=== PATIENT | female | born 1930 | race Caucasian/White ===

== ENCOUNTER 2018-01-22 12:12 | Inpatient (IN) ==
[2018-01-22] MEDS ORDERED: Propofol 1000 mg/100 ml Inj 1,000 MG/100 ML BOTTLE ONE (12:17)
--- NOTE | 2018-01-22 12:31 | XR ---
EXAM DATE: 01/22/2018 12:27 PM EDT AGE/SEX: 89 years / Female INDICATIONS: Trauma alert. Fall. CLINICAL DATA: This is the patient's initial encounter. Patient reports that signs and symptoms have been present for 1 day and indicates a pain score of Nonresponsive. MEDICAL/SURGICAL HISTORY: Non-responsive. Non-responsive. COMPARISON: No prior exams available for comparison. FINDINGS: There is extensive air in the subcutaneous tissues. There appears to be a number of left-sided rib fr actures. The heart and mediastinum are unremarkable. The endotracheal tube is extending towards the r ight bronchus. CONCLUSION: Extensive subcutaneous air in the chest wall and breast. ET tube heading towards the right bronchus. Numerous left-sided rib fractures Electronically signed by: Nile Duvall MD 01/22/2018 12:30 PM EDT
--- NOTE | 2018-01-22 12:33 | XR ---
EXAM DATE: 01/22/2018 12:31 PM EDT AGE/SEX: 89 years / Female INDICATIONS: Trauma alert. Fall. CLINICAL DATA: This is the patient's initial encounter. Patient reports that signs and symptoms have been present for 1 day and indicates a pain score of Nonresponsive. MEDICAL/SURGICAL HISTORY: Non-responsive. Non-responsive. COMPARISON: No prior exams available for comparison. FINDINGS: Examination of the pelvis demonstrates no evidence of fracture or dislocation. Bony mineralization i s normal. There is no widening of the sacroiliac joints. No foreign body is identified. CONCLUSION: Negative examination. Electronically signed by: Nile Duvall MD 01/22/2018 12:32 PM EDT
[2018-01-22 12:43] LABS: Baso % (Auto) 0.4 % (0.0-2.0); Eos % (Auto) 0.2 % (0.0-4.0); Hematocrit 31.3 % (35.0-46.0); Hemoglobin 10.1 gm/dL (11.6-15.3); Lymph # (Auto) 0.8 th/mm3 (1.0-4.8); Lymph % (Auto) 7.4 % (9.0-44.0); Mean Corpuscular HGB Conc 32.4 % (32.0-36.0); Mean Corpuscular Hemoglobin 28.2 pg (27.0-34.0); Mean Corpuscular Volume 87.1 fL (80.0-100.0); Mono # (Auto) 0.5 th/mm3 (0.0-0.9); Mono % (Auto) 4.8 % (0.0-8.0); Neut # (Auto) 9.4 th/mm3 (1.8-7.7); Neut % (Auto) 87.2 % (16.0-70.0); Platelet Count 237 th/mm3 (150-450); Red Blood Count 3.59 mil/mm3 (4.00-5.30); Red Cell Distribution Width 15.6 % (11.6-17.2); White Blood Count 10.7 th/mm3 (4.0-11.0)
--- NOTE | 2018-01-22 12:43 | CT ---
EXAM DATE: 01/22/2018 12:40 PM EDT AGE/SEX: 89 years / Female INDICATIONS: Trauma alert, fall from standing. CLINICAL DATA: This is the patient's initial encounter. Patient reports that signs and symptoms have been present for 1 day and indicates a pain score of Nonresponsive. MEDICAL/SURGICAL HISTORY: Non-responsive. Non-responsive. RADIATION DOSE: 65.35 CTDI (mGy) COMPARISON: No prior exams available for comparison. TECHNIQUE: CT of the head without contrast. Using automated exposure control and adjustment of the mA and/or kV according to patient size, radiation dose was kept as low as reasonably achievable to ob tain optimal diagnostic quality images. DICOM format image data is available electronically for revi ew and comparison. FINDINGS: Cerebrum: The ventricles are normal for age. No evidence of midline shift, mass lesion, hemorrhage or acute infarction. No extraaxial fluid collections are seen. Posterior Fossa: The cerebellum and brainstem are intact. The 4th ventricle is midline. The cerebe llopontine angle is unremarkable. Extracranial: The visualized portion of the orbits is intact. Skull: The calvaria is intact. No evidence of skull fracture. CONCLUSION: 1. Negative CT Head non contrast. Extensive air in the subcutaneous tissues . Electronically signed by: Nile Duvall MD 01/22/2018 12:42 PM EDT
[2018-01-22] MEDS ORDERED: Midazolam Inj 5 MG/ML 1 ML Vial ONE (12:52)
[2018-01-22] MEDS ORDERED: Lidocaine 1%/Epinephrine 1:100,000 Inj 20 ML Vial ONE (12:53)
[2018-01-22 13:01] LABS: Activated Partial Thrombo Time 19.6 sec (24.3-30.1); INR 1.1 Ratio; Prothrombin Time 11.4 sec (9.8-11.6)
--- NOTE | 2018-01-22 13:01 | CT ---
EXAM DATE: 01/22/2018 12:50 PM EDT AGE/SEX: 89 years / Female INDICATIONS: Trauma alert, fall from standing. CLINICAL DATA: This is the patient's initial encounter. Patient reports that signs and symptoms have been present for 1 day and indicates a pain score of Nonresponsive. MEDICAL/SURGICAL HISTORY: Non-responsive. Non-responsive. RADIATION DOSE: 20.64 CTDI (mGy) COMPARISON: No prior exams available for comparison. TECHNIQUE: Contiguous axial images were obtained using helical multirow detector technique. The vol umetric data was post-processed with multiplanar reconstruction in oblique axial, sagittal, and coron al planes. Using automated exposure control and adjustment of the mA and/or kV according to patient s ize, radiation dose was kept as low as reasonably achievable to obtain optimal diagnostic quality sallie ges. DICOM format image data is available electronically for review and comparison. FINDINGS: Vertebrae: Normal vertebral body height. Alignment: Normal. No subluxation. Intervertebral disc space narrowing at C4-5, C5-6 and C6-7 C2-3: The bony spinal canal is normal in size. No evidence of disc bulge or herniation. The neural foramina are bilaterally patent. C3-4: The bony spinal canal is normal in size. No evidence of disc bulge or herniation. The neural foramina are bilaterally patent. C4-5: The bony spinal canal is normal in size. No evidence of disc bulge or herniation. The neural foramina are bilaterally patent. C5-6: The bony spinal canal is normal in size. No evidence of disc bulge or herniation. The neural foramina are bilaterally patent. C6-7: The bony spinal canal is normal in size. No evidence of disc bulge or herniation. The neural foramina are bilaterally patent. 1. C7-T1: The bony spinal canal is normal in size. No evidence of disc bulge or chronic degenerati ve disease throughout the mid cervical spine CT Cervical Spine non contrast for acute traumatic event . Electronically signed by: Nile Duvall MD 01/22/2018 12:59 PM EDT
--- NOTE | 2018-01-22 13:07 | CT ---
EXAM DATE: 01/22/2018 12:51 PM EDT AGE/SEX: 89 years / Female INDICATIONS: Trauma alert, fall from standing. CLINICAL DATA: This is the patient's initial encounter. Patient reports that signs and symptoms have been present for 1 day and indicates a pain score of Nonresponsive. MEDICAL/SURGICAL HISTORY: Non-responsive. Non-responsive. ORAL CONTRAST: No oral contrast ingested. RADIATION DOSE: 5.27 CTDI (mGy) ; Combined studies COMPARISON: No prior exams available for comparison. TECHNIQUE: Multiple contiguous axial images were obtained through the abdomen and pelvis following b olus infusion of 93 ml Omnipaque 350 (iohexol) nonionic water-soluble contrast as a cumulative dose for multiple exams. No oral contrast ingested. Using automated exposure control and adjustment of t he mA and/or kV according to patient size, radiation dose was kept as low as reasonably achievable to obtain optimal diagnostic quality images. DICOM format image data is available electronically for r eview and comparison. FINDINGS: Lower Lungs: There is a significant pneumothorax identified at the left lung base. Pneumomediastinum is noted. Multiple fractures involving the left rib cage are noted. Liver: There is diffuse decreased attenuation of the liver suggesting possible fatty infiltration. No focal mass is noted. There is no dilation of the biliary tree. Spleen: Homogeneous density without enlargement. Pancreas: Unremarkable without mass or calcification. Kidneys: Normal in size and shape. No evidence of mass or hydronephrosis. Bilateral renal cysts are noted with the largest on the left measuring 3.4 cm. Adrenal Glands: Unremarkable. Aorta: The aorta and proximal iliac vessels are grossly unremarkable without aneurysmal dilation. Bowel/Mesentery: The bowel loops are grossly unremarkable. The cecum and sigmoid colon have a normal configuration. Abdominal Wall: Intact. Retroperitoneum: No evidence of adenopathy in the retrocrural, para-aortic, or deep pelvic regions. Bladder: Contours are smooth. Reproductive Organs: 17 mm calcified fibroid is noted within the uterus. Inguinal: The inguinal region is unremarkable without evidence of adenopathy. Bony Structures: Degenerative changes and scoliosis of the lumbar spine are noted. Acute fractures in volving the left rib cage are noted and will be described in more detail in the CT of the chest repor t. Soft tissues: Very extensive subcutaneous emphysema is noted throughout the chest wall and abdomen. CONCLUSION: 1. Significant pneumothorax identified at the left lung base. 2. Very extensive diffuse subcutaneous emphysema throughout the chest wall and abdomen bilaterally. 3. Pneumomediastinum. 4. Multiple left sided rib fractures. 5. Bilateral renal cysts. 6. 17 mm calcified uterine fibroid. Electronically signed by: Miles Jimenez MD 01/22/2018 1:06 PM EDT
--- NOTE | 2018-01-22 13:14 | CT ---
EXAM DATE: 01/22/2018 12:51 PM EDT AGE/SEX: 89 years / Female INDICATIONS: Trauma alert, fall from standing. CLINICAL DATA: This is the patient's initial encounter. Patient reports that signs and symptoms have been present for 1 day and indicates a pain score of Nonresponsive. MEDICAL/SURGICAL HISTORY: Non-responsive. Non-responsive. RADIATION DOSE: 5.27 CTDI (mGy) ; Combined studies COMPARISON: No prior exams available for comparison. TECHNIQUE: Multiple contiguous axial images were obtained through the chest during bolus infusion of 93 ml Omnipaque 350 (iohexol) nonionic water-soluble contrast as a cumulative dose for multiple exa ms. Images were obtained in suspended respiration using multiple row detector helical technique. U sing automated exposure control and adjustment of the mA and/or kV according to patient size, radiati on dose was kept as low as reasonably achievable to obtain optimal diagnostic quality images. DICOM format image data is available electronically for review and comparison. FINDINGS: There is evidence of a large pneumothorax on the left. There is extensive subcutaneous emphysema is n oted extending throughout the chest bilaterally. Pneumomediastinum is also noted. Multiple acute frac tures involving left rib cage are noted with significant displacement of the seventh, eighth and nint h ribs and nondisplaced fractures involving the fifth, sixth, 10 and 11th ribs. Scattered emphysemato us changes are noted bilaterally. No alveolar consolidation is noted. No pulmonary nodule or mass is noted. No mediastinal, hilar or axillary lymphadenopathy is noted. Coronary artery calcifications are noted. Endotracheal tube has its tip approximately 1 cm above the allen. There is mild diffuse decr eased attenuation of the liver suggesting possible fatty infiltration. CONCLUSION: 1. Large left-sided pneumothorax. 2. Extensive subcutaneous emphysema extending throughout the chest and upper abdomen bilaterally. 3. Pneumomediastinum. 4. Multiple acute fractures involving the left rib cage with significant displacement of the left se venth eighth and ninth ribs and nondisplaced fractures involving the left fifth, 6, 10, and 11th ribs . 5. Scattered emphysematous changes bilaterally. 6. Coronary artery calcification. 7. Mild diffuse decreased attenuation liver suggesting possible fatty infiltration. Electronically signed by: Miles Jimenez MD 01/22/2018 1:13 PM EDT
--- NOTE | 2018-01-22 13:25 | XR ---
EXAM DATE: 01/22/2018 1:18 PM EDT AGE/SEX: 89 years / Female INDICATIONS: Post chest tube placement. Trauma alert. CLINICAL DATA: This is the patient's subsequent encounter. Patient reports that signs and symptoms h ave been present for 1 day and indicates a pain score of Nonresponsive. MEDICAL/SURGICAL HISTORY: Non-responsive. Non-responsive. COMPARISON: [facility] [place], CHEST 1V SINGLE AP, 01/22/2018. [facility] [place], CT CHEST W CONTRAST, 01/22/2018. . FINDINGS: A left-sided chest tube has been placed and appears to be in good position. No definite residual pneu mothorax is identified on this examination. Extensive subcutaneous emphysema is still noted throughou t the chest wall. Endotracheal tube has its tip 1 cm above the allen. Nasogastric tube has tip below diaphragm. Multiple left-sided rib fractures are poorly visualized on this examination. CONCLUSION: 1. Left chest tube appears to be in good position and no definite residual pneumothorax is identifie d on this examination. 2. Extensive subcutaneous emphysema is noted throughout the chest wall. Electronically signed by: Miles Jimenez MD 01/22/2018 1:24 PM EDT
[2018-01-22] MEDS: Sod Chloride 0.9% Inj 1,000 ML IV.CONT SCH (14:30)
[2018-01-22] MEDS ORDERED: fentaNYL 10 mcg/mL Premix Drip 2,500 MCG/250 ML BAG IV.SIG PRN (14:36)
[2018-01-22] MEDS ORDERED: Magnesium Sulfate Inj 2 GM in Sodium Chlor 0.9% Inj 96 ML IV.SIG PRN (14:38)
[2018-01-22] MEDS ORDERED: Magnesium Sulfate Inj 4 GM in Sodium Chlor 0.9% Inj 92 ML IV.SIG PRN (14:38)
[2018-01-22] MEDS ORDERED: Potassium Chloride 25 MEQ Effervescent Tablet PO PRN (14:38)
[2018-01-22] MEDS ORDERED: Sodium Phosphate Inj 30 MMOL in Sodium Chlor 0.9% Inj 250 ML IV.SIG PRN (14:38)
[2018-01-22] MEDS ORDERED: Potassium Phosphate 500 MG Soluble Tablet PO PRN (14:38)
[2018-01-22] MEDS ORDERED: Potassium Chlor 40 mEq Premix 40 MEQ/100 ML PIGGYBACK IV.SIG PRN ×2 (14:38)
[2018-01-22] MEDS ORDERED: Magnesium Oxide 400 MG Tablet PO PRN (14:38)
[2018-01-22] MEDS ORDERED: Potassium Phosphate Inj 30 MMOL in Sodium Chlor 0.9% Inj 250 ML IV.SIG PRN (14:38)
[2018-01-22] MEDS ORDERED: Potassium Chlor 20 mEq Premix 20 MEQ/100 ML PIGGYBACK IV.SIG PRN (14:38)
[2018-01-22] MEDS: Pantoprazole Inj 40 MG Vial IV.PUSH SCH (15:36)
[2018-01-22] MEDS ORDERED: Propofol Inj 500 MG/50 ML Vial ONE (15:58)
--- NOTE | 2018-01-22 17:34 | P.PNCC ---
Subjective Brief History: 88-year-old female fell at home from standing position when she tripped. Transferred to the emergency room awake and complaining of the pain on the left side of her chest. Patient transferred this priority 2 trauma alert and on arrival noted to have very extensive subcutaneous emphysema extending from the lower chest all the way to the neck and the face. Patient was resuscitated according trauma principles primary secondary survey resuscitation definitive care carried out and patient underwent full diagnostic and clinical workup Final diagnoses include Large left-sided pneumothorax. Extensive subcutaneous emphysema extending throughout the chest and upper abdomen bilaterally. Pneumomediastinum. Multiple acute fractures involving the left rib cage with significant displacement of the left 7, 8, 9 ribs and Nondisplaced fractures involving the left 5, 6, 10, and 11th ribs. Patient is now intubated and ventilated will remain on the ventilator for the duration. In the face of serial rib fractures and underlying pulmonary contusion patient will require prolonged intubation and ventilation and will eventually either come off the ventilator or may require tracheostomy Patient has underlying severe pulmonary emphysema has been a lifetime smoker I discussed this at length with the family and patient is DO NOT RESUSCITATE Objective Vital Signs / I&O: Vital Signs 01/22/18 12:10 01/22/18 12:13 01/22/18 13:32 Temperature Pulse Rate Respiratory Rate 16 Blood Pressure Pulse Oximetry 100 100 100 01/22/18 14:00 01/22/18 15:00 01/22/18 15:06 Temperature 97.5 F L Pulse Rate 72 Respiratory Rate 16 16 16 Blood Pressure 127/90 Pulse Oximetry Intake & Output 01/21/18 01/22/18 01/22/18 18:59 06:59 18:59 Weight 62 kg Other: Weight On Admission 62.4 kg Result Diagrams: 01/22/18 12:30 Imaging: Impressions Chest X-Ray 01/22/18 00:00 CONCLUSION: 1. Left chest tube appears to be in good position and no definite residual pneumothorax is identified on this examination. 2. Extensive subcutaneous emphysema is noted throughout the chest wall. Chest X-Ray 01/22/18 12:13 CONCLUSION: Extensive subcutaneous air in the chest wall and breast. ET tube heading towards the right bronchus. Numerous left-sided rib fractures Pelvis X-Ray 01/22/18 12:13 CONCLUSION: Negative examination. Abdomen/Pelvis CT 01/22/18 12:33 CONCLUSION: 1. Significant pneumothorax identified at the left lung base. 2. Very extensive diffuse subcutaneous emphysema throughout the chest wall and abdomen bilaterally. 3. Pneumomediastinum. 4. Multiple left sided rib fractures. 5. Bilateral renal cysts. 6. 17 mm calcified uterine fibroid. Chest CT 01/22/18 12:33 CONCLUSION: 1. Large left-sided pneumothorax. 2. Extensive subcutaneous emphysema extending throughout the chest and upper abdomen bilaterally. 3. Pneumomediastinum. 4. Multiple acute fractures involving the left rib cage with significant displacement of the left seventh eighth and ninth ribs and nondisplaced fractures involving the left fifth, 6, 10, and 11th ribs. 5. Scattered emphysematous changes bilaterally. 6. Coronary artery calcification. 7. Mild diffuse decreased attenuation liver suggesting possible fatty infiltration. Head CT 01/22/18 12:33 CONCLUSION: 1. Negative CT Head non contrast. Extensive air in the subcutaneous tissues . 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 ventilated on propofol fentanyl Hemodynamic/Cardiac: Hemodynamically stable Pulmonary/Respiratory: Bilateral breath sounds very decreased consistent with severe COPD Patient is generalized subcutaneous emphysema extending from upper abdomen all the way to the neck and encompassing the face Fully ventilatory dependent on AC mode ventilation and good PO2 FiO2 gradient on 40% FiO2 The subcutaneous emphysema is of no consequence at this time patient has minimal air leak in the chest tube and this will resolve in the next few days as the area resorbs The underlying problem is patient's pulmonary contusion and severe COPD and therefore separation from the ventilator will be precarious process and patient might require tracheostomy Abdomen/GI Nutrition: Abdomen soft no signs of trauma Renal/I&O: Renal function preserved Assessment and Plan Attestation: Critical care time 36 minutes
--- NOTE | 2018-01-22 19:42 | ED ---
HPI General Stated Complaint: Trauma alert History of Present Illness HPI narrative: This is an 88-year-old female who presents via EMS as a trauma alert. The patient reportedly had a fall at home. She reportedly had pain in her right lateral back. As paramedics arrived, they witnessed patient to be awake alert and appropriate with a GCS of 15. They reported as they were talking with her, she started to have swelling in her left upper extremity which extended to her neck chest and other right upper extremity. They state that they were concerned that she may have compromised her airway and she was intubated emergently for airway protection. When paramedics arrived the patient had diffuse crepitance across her chest breasts bilateral upper extremities neck and face. She had equal bilateral breath sounds noted. She had been medicated with etomidate, Versed prior to arrival. No further history could be elicited. Related Data Home Medications Medication Instructions Recorded Confirmed albuterol sulfate 1 puff INHALATION Q4-6H PRN MDD 01/22/18 01/22/18 10mg escitalopram oxalate 5 mg PO DAILY 01/22/18 01/22/18 hydroxyzine HCl 25 mg PO QID PRN MDD 10mg 01/22/18 01/22/18 zolpidem [Ambien] PRN 01/22/18 Allergies Allergy/AdvReac Type Severity Reaction Status Date / Time No Allergy Information Allergy Unverified 01/22/18 12:13 Available Review of Systems ROS Unobtainable ROS Unobtainable: unobtainable due to endotracheal tube (As per HPI.) [facility] Social History Social History Substance History: No History of Abuse Second Hand Smoke Exposure: Yes Smoking Status: Former smoker Tobacco Type: Cigarettes How Often Do You Have a Drink Containing Alcohol: 2 to 4 times a month Exam Narrative Exam Narrative: GENERAL: Well-developed female with obvious swelling to head face chest arms and abdomen. It appeared to be subcutaneous air. Patient was intubated and being ventilated through ET tube. SKIN: Focused skin assessment warm/dry. HEAD: Atraumatic. Normocephalic. EYES: Pupils equal and round at 4 mm. Subcu air extended into her upper and lower eyelids bilaterally. No scleral icterus. No injection or drainage. ENT: No nasal bleeding or discharge. Mucous membranes pink and moist. ET tube in place. NECK: Trachea midline. Diffuse swelling with subcutaneous air in the neck which extended from the chest. CARDIOVASCULAR: Regular rate and rhythm. No murmur appreciated. RESPIRATORY: Being ventilated through an ET tube. Equal breath sounds bilaterally appreciated. GASTROINTESTINAL: Abdomen soft, distended with subcutaneous air. There was no pulsatile masses appreciated. MUSCULOSKELETAL: No obvious deformities. No clubbing. No cyanosis. No edema. Diffuse subcutaneous air in the left and right upper extremity. There was a skin tear noted on her left wrist. NEUROLOGICAL: Intubated and sedated. Patient was observed withdrawing to painful stimuli. Course Initial Documented Vital Signs Pulse Oximetry 100 01/22/18 12:10 Last Documented Vital Signs Temperature 97.5 F L 01/22/18 14:00 Pulse Rate 72 01/22/18 14:00 Respiratory Rate 16 01/22/18 16:00 Blood Pressure 124/64 01/22/18 16:00 Pulse Oximetry 100 01/22/18 13:32 Procedures Chest Tube Chest Tube 1: Chest Tube Location: Mid-Axillary Chest Size of Tube (cm): 28 Chest Tube Procedure: Yes betadine prep and sterile drapes applied Tube Sutured to Skin: Yes Sterile Dressing Applied: Yes Anesthesia: 1% Lidocaine w/ Epi Volume anesthetic (mL): 7 Incision made with: #11 blade Haddad of Air Mobile: Yes Tube Drainage: none Post Procedure CXR?: Yes Patient Tolerated Procedure: Yes Post Procedure: sutured to skin and sterile dressing applied Critical Care Time Critical Care Time: Yes Total Critical Care Time: 60 Attestation: Aggregate critical care time was 60 minutes. Time to perform other separately billable procedures was not included in the critical care time. My time did not include minutes spent treating any other patients simultaneously or on activities that did not directly contribute to the patient's treatment. The services I provided to this patient were to treat and/or prevent clinically significant deterioration that could result in: I provided critical care services requiring my management, as noted below: Chart data review, documentation time, medication orders and management, vital sign assessments/reviewing monitor data, ordering and reviewing lab tests, ordering and interpreting/reviewing x-rays and diagnostic studies, care of the patient and discussion of the patient with the admitting physicians. Medical Decision Making MDM Narrative Medical decision making narrative: 88-year-old female presents after falling and striking her left posterior ribs. The patient had sudden onset of diffuse subcutaneous air in her upper extremities and chest and face. Chest x-ray showed diffuse subcutaneous air in the breasts upper extremities chest wall however did not show an obvious pneumothoraces. CT scan of the head neck chest abdomen pelvis revealed a large left-sided pneumothorax with diffuse subcutaneous air throughout the torso. There are also multiple left-sided posterior ribs that were fractured. A chest tube was placed which reinflated the lung. Patient will be admitted to the trauma service. Case was discussed with Dr. Salcido, on-call trauma surgeon. Medical Screen Exam Complete: Yes Emergency Medical Condition: Yes Differential Diagnosis Differential Diagnosis: Pneumothorax versus tension pneumothorax versus subcutaneous emphysema versus rib fractures Lab Data Result diagrams: 01/22/18 12:30 Lab Results 01/22/18 01/22/18 01/22/18 Range/Units 12:30 12:30 12:30 WBC 10.7 (4.0-11.0) th/mm3 RBC 3.59 L (4.00-5.30) mil/mm3 Hgb 10.1 L (11.6-15.3) gm/dL POC Hgb (Calc) 9.9 L (11.6-15.3) g/dL Hct 31.3 L (35.0-46.0) % POC Hct 29.0 L (35-46.0) % MCV 87.1 (80.0-100.0) fL MCH 28.2 (27.0-34.0) pg MCHC 32.4 (32.0-36.0) % RDW 15.6 (11.6-17.2) % Plt Count 237 (150-450) th/mm3 MPV 9.0 (7.0-11.0) fL Neut % (Auto) 87.2 H (16.0-70.0) % Lymph % (Auto) 7.4 L (9.0-44.0) % [place] % (Auto) 4.8 (0.0-8.0) % Eos % (Auto) 0.2 (0.0-4.0) % Baso % (Auto) 0.4 (0.0-2.0) % Neut # (Auto) 9.4 H (1.8-7.7) th/mm3 Lymph # (Auto) 0.8 L (1.0-4.8) th/mm3 [place] # (Auto) 0.5 (0.0-0.9) th/mm3 Eos # (Auto) 0.0 (0.0-0.4) th/mm3 Baso # (Auto) 0.0 (0.0-0.2) th/mm3 WBC Differential . Differential Comment Auto diff final PT 11.4 (9.8-11.6) sec INR 1.1 Ratio APTT 19.6 L (24.3-30.1) sec POC Sodium 145 H (137-144) mmol/L POC Potassium 2.9 L* (3.6-5.0) mmol/L POC Chloride 112 H (102-111) mmol/L POC BUN 11 (5-21) mg/dL POC Creatinine 0.5 L (0.6-1.3) mg/dL POC Glucose 126 H (68-110) mg/dL Nasal Screen MRSA (PCR) (Negative) Blood Type Antibody Screen 01/22/18 01/22/18 Range/Units 12:30 16:30 WBC (4.0-11.0) th/mm3 RBC (4.00-5.30) mil/mm3 Hgb (11.6-15.3) gm/dL POC Hgb (Calc) (11.6-15.3) g/dL Hct (35.0-46.0) % POC Hct (35-46.0) % MCV (80.0-100.0) fL MCH (27.0-34.0) pg MCHC (32.0-36.0) % RDW (11.6-17.2) % Plt Count (150-450) th/mm3 MPV (7.0-11.0) fL Neut % (Auto) (16.0-70.0) % Lymph % (Auto) (9.0-44.0) % [place] % (Auto) (0.0-8.0) % Eos % (Auto) (0.0-4.0) % Baso % (Auto) (0.0-2.0) % Neut # (Auto) (1.8-7.7) th/mm3 Lymph # (Auto) (1.0-4.8) th/mm3 [place] # (Auto) (0.0-0.9) th/mm3 Eos # (Auto) (0.0-0.4) th/mm3 Baso # (Auto) (0.0-0.2) th/mm3 WBC Differential Differential Comment PT (9.8-11.6) sec INR Ratio APTT (24.3-30.1) sec POC Sodium (137-144) mmol/L POC Potassium (3.6-5.0) mmol/L POC Chloride (102-111) mmol/L POC BUN (5-21) mg/dL POC Creatinine (0.6-1.3) mg/dL POC Glucose (68-110) mg/dL Nasal Screen MRSA (PCR) Not detected (Negative) Blood Type A Negative Antibody Screen Negative Imaging Data Radiologist's impression: Chest X-Ray 01/22/18 00:00 CONCLUSION: 1. Left chest tube appears to be in good position and no definite residual pneumothorax is identified on this examination. 2. Extensive subcutaneous emphysema is noted throughout the chest wall. Chest X-Ray 01/22/18 12:13 CONCLUSION: Extensive subcutaneous air in the chest wall and breast. ET tube heading towards the right bronchus. Numerous left-sided rib fractures Pelvis X-Ray 01/22/18 12:13 CONCLUSION: Negative examination. Abdomen/Pelvis CT 01/22/18 12:33 CONCLUSION: 1. Significant pneumothorax identified at the left lung base. 2. Very extensive diffuse subcutaneous emphysema throughout the chest wall and abdomen bilaterally. 3. Pneumomediastinum. 4. Multiple left sided rib fractures. 5. Bilateral renal cysts. 6. 17 mm calcified uterine fibroid. Chest CT 01/22/18 12:33 CONCLUSION: 1. Large left-sided pneumothorax. 2. Extensive subcutaneous emphysema extending throughout the chest and upper abdomen bilaterally. 3. Pneumomediastinum. 4. Multiple acute fractures involving the left rib cage with significant displacement of the left seventh eighth and ninth ribs and nondisplaced fractures involving the left fifth, 6, 10, and 11th ribs. 5. Scattered emphysematous changes bilaterally. 6. Coronary artery calcification. 7. Mild diffuse decreased attenuation liver suggesting possible fatty infiltration. Head CT 01/22/18 12:33 CONCLUSION: 1. Negative CT Head non contrast. Extensive air in the subcutaneous tissues . Discharge Plan Discharge Disposition Patient Disposition: 30 Still Patient Discharge Details Diagnosis: Pneumothorax on left, Multiple rib fractures, Subcutaneous emphysema due to trauma Physicians Team ED Provider: Tony Aranda Primary Care Provider: UNKNOWN, Attending Provider: Chris Hanna Other Providers: Slava Barahona P Status ED Status: Admitted Patient
[2018-01-22] MEDS: Propofol 1000 mg/100 ml Inj 1,000 MG/100 ML BOTTLE IV.CONT PRN (19:45)
--- NOTE | 2018-01-22 21:19 | MB ---
cc: Chuy Carias DO DATE: 01/22/2018 HISTORY OF PRESENT ILLNESS: This is an 88-year-old female who was brought in by EMS after a fall. The staff was unable to place a Tracey at the bedside. She is currently intubated and sedated, therefore I am unable to obtain a full history and physical from her. At the bedside, I was able to place a 14-Belarusian coude catheter without difficulty. 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 The Tracey went in and approximately 250 mL of clear urine was drained without difficulty. She tolerated the procedure well. PHYSICAL EXAMINATION: VITAL SIGNS: Afebrile, 124/64 is her blood pressure, 84 is her heart rate, respiratory rate 16, 40% FiO2, intubated and sedated. Breath sounds bilaterally. HEART: Regular rate and rhythm. ABDOMEN: Soft, nontender, nondistended. GENITOURINARY: Tracey catheter inserted at the bedside, again. EXTREMITIES: Show right hand edema with no lower extremity edema noted. LABORATORY DATA: White count 10.7, hemoglobin 10.1, hematocrit 31.3, platelet count of 237. PT 11.4, INR 1.1, PTT 19.6. Sodium 145, potassium 2.9, chloride 112, CO2 is not done. Creatinine 0.5. ASSESSMENT AND PLAN: This is an 88-year-old female, status post fall, currently intubated and sedated. Difficult Tracey was placed at the bedside. We will maintain Tracey for now. Thank you for the consult. Chuy Carias DO SWT/ct , 07:50 PM , 07:55 PM
[2018-01-22 21:29] LABS: Bilirubin,Urine Negative (Negative); Clarity,Urine Clear (Clear); Color,Urine Yellow (Yellw/Straw); Glucose,Urine (UA) Negative (Negative); Leukocyte Esterase,Urine Negative (Negative); Nitrite,Urine Negative (Negative); Specific Gravity,Urine 1.038 (1.002-1.035); Squamous Epithelial Cell,Urine <1 /hpf (0-5)
[2018-01-23] MEDS: Sod Chloride 0.9% Inj 1,000 ML IV.CONT SCH ×3 (00:29→21:10)
[2018-01-23] MEDS: Propofol 1000 mg/100 ml Inj 1,000 MG/100 ML BOTTLE IV.CONT PRN ×2 (01:05→03:15)
[2018-01-23] MEDS: Chlorhexidine Gluconate 2% 1 Pack (2 Cloths) TOPICAL SCH (03:16)
[2018-01-23] MEDS ORDERED: Chlorhexidine Gluconate 2% 1 Pack (2 Cloths) TOPICAL PRN (04:00)
[2018-01-23] MEDS: fentaNYL 10 mcg/mL Premix Drip 2,500 MCG/250 ML BAG IV.SIG PRN (04:16)
[2018-01-23 05:31] LABS: Baso % (Auto) 0.3 % (0.0-2.0); Eos # (Auto) 0.1 th/mm3 (0.0-0.4); Eos % (Auto) 1.3 % (0.0-4.0); Hematocrit 34.7 % (35.0-46.0); Hemoglobin 11.5 gm/dL (11.6-15.3); Lymph # (Auto) 1.2 th/mm3 (1.0-4.8); Lymph % (Auto) 11.6 % (9.0-44.0); Mean Corpuscular HGB Conc 33.1 % (32.0-36.0); Mean Corpuscular Hemoglobin 28.4 pg (27.0-34.0); Mean Corpuscular Volume 85.8 fL (80.0-100.0); Mean Platelet Volume 9.6 fL (7.0-11.0); Mono # (Auto) 0.7 th/mm3 (0.0-0.9); Mono % (Auto) 7.1 % (0.0-8.0); Neut # (Auto) 8.2 th/mm3 (1.8-7.7); Neut % (Auto) 79.7 % (16.0-70.0); Platelet Count 246 th/mm3 (150-450); Red Blood Count 4.05 mil/mm3 (4.00-5.30); Red Cell Distribution Width 15.4 % (11.6-17.2); White Blood Count 10.3 th/mm3 (4.0-11.0)
[2018-01-23 05:56] LABS: Albumin 3.1 g/dL (3.4-5.0); Anion Gap 11 meq/L (5-15); Aspartate Aminotransferase 154 U/L (15-37); Blood Urea Nitrogen 19 mg/dL (7-18); Calcium 8.2 mg/dL (8.5-10.1); Carbon Dioxide 21.2 meq/L (21.0-32.0); Chloride 111 meq/L (98-107); Glomerular Filtration Rate 40 mL/min (>89); Glucose,Random 113 mg/dL (74-106); Potassium 4.4 meq/L (3.5-5.1); Sodium 143 meq/L (136-145)
[2018-01-23 05:57] LABS: Alanine Aminotransferase 88 U/L (10-53)
[2018-01-23 06:00] LABS: Alkaline Phosphatase 164 U/L (45-117); Total Protein 6.1 g/dL (6.4-8.2)
--- NOTE | 2018-01-23 06:03 | XR ---
EXAM DATE: 01/23/2018 4:55 AM EDT AGE/SEX: 87 years / Female INDICATIONS: Trauma to chest post fall yesterday CLINICAL DATA: This is the patient's subsequent encounter. Patient reports that signs and symptoms h ave been present for 1 day and indicates a pain score of Nonresponsive. MEDICAL/SURGICAL HISTORY: Non-responsive. Non-responsive. COMPARISON: [facility], CHEST 1V SINGLE AP, 01/22/2018. . FINDINGS: Endotracheal tube is present with tip just above the allen. Nasogastric tube descends into the stoma ch. Left thoracostomy tube is again noted. There is mild basilar parenchymal opacity, slightly more p ronounced on the left than the right and extensive diffuse subcutaneous emphysema which is unchanged. Mediastinal air also suspected. Cardiac contours are unchanged. CONCLUSION: No significant change Electronically signed by: Keith Toribio MD 01/23/2018 6:02 AM EDT
[2018-01-23] MEDS ORDERED: Sod Chloride 0.9% Inj 1,000 ML IV.SIG ONE (07:00)
[2018-01-23] MEDS ORDERED: Albumin Human 5% Inj 500 ML IV.SIG ONE (07:00)
[2018-01-23] MEDS: Enoxaparin Inj 40 MG/0.4 ML Syringe SQ SCH (09:10)
[2018-01-23] MEDS: Escitalopram 10 MG Tablet PO SCH (09:10)
[2018-01-23] MEDS ORDERED: Sod Chloride 0.9% Inj 1,000 ML IV.SIG SCH (10:00)
[2018-01-23] MEDS: Senna/Docusate Sodium 8.6/50 MG Tablet PO SCH ×2 (11:10→20:03)
[2018-01-23] MEDS: Oral Hygiene Kit OROPHARYNG SCH ×2 (11:11→16:04)
[2018-01-23] MEDS: Pantoprazole Inj 40 MG Vial IV.PUSH SCH (13:35)
[2018-01-23] MEDS ORDERED: Sod Chloride 0.9% Inj 1,000 ML IV.CONT SCH (14:00)
--- NOTE | 2018-01-23 17:14 | ECG ---
Date Performed: 01/22/2018 Time Performed: 20:20:52 PTAGE: 89 years EKG: Sinus rhythm NORMAL ECG INTERPRETATION BASED ON A DEFAULT AGE OF 40 YEARS NO PREVIOUS TRACING DOCTOR: Flo Mason Interpretating Date/Time 01/23/2018 17:14:20
[2018-01-23 19:58] LABS: Calcium 7.6 mg/dL (8.5-10.1); Carbon Dioxide 20.8 meq/L (21.0-32.0); Potassium 4.4 meq/L (3.5-5.1)
[2018-01-23] MEDS: Chlorhexidine 0.12% Oral Kit 15 ML UDC OROPHARYNG SCH (20:03)
--- NOTE | 2018-01-23 21:16 | P.PNCC ---
Subjective Brief History: 88-year-old female fell at home from standing position when she tripped. Transferred to the emergency room awake and complaining of the pain on the left side of her chest. Patient transferred this priority 2 trauma alert and on arrival noted to have very extensive subcutaneous emphysema extending from the lower chest all the way to the neck and the face. Patient was resuscitated according trauma principles primary secondary survey resuscitation definitive care carried out and patient underwent full diagnostic and clinical workup Final diagnoses include Large left-sided pneumothorax. Extensive subcutaneous emphysema extending throughout the chest and upper abdomen bilaterally. Pneumomediastinum. Multiple acute fractures involving the left rib cage with significant displacement of the left 7, 8, 9 ribs and Nondisplaced fractures involving the left 5, 6, 10, and 11th ribs. Patient is now intubated and ventilated will remain on the ventilator for the duration. In the face of serial rib fractures and underlying pulmonary contusion patient will require prolonged intubation and ventilation and will eventually either come off the ventilator or may require tracheostomy Patient has underlying severe pulmonary emphysema has been a lifetime smoker I discussed this at length with the family and patient is DO NOT RESUSCITATE 01/23/2018 Patient has been stable throughout the night Neurologically she is improved she is opening eyes and following simple commands apparently responding to her family but remains sedated in the face of ventilatory support Hemodynamically stable Bilateral breath sounds on assist control ventilation and good PO2 FiO2 gradient on 40% FiO2. Patient has serial rib fractures on the left side with pulmonary laceration and contusion and therefore is not ready of course to be extubated Chest tube no more leak The subcutaneous emphysema is gradually resolving and reabsorbing as expected Abdomen soft active bowel sounds Renal function is adequate however patient's urine output has been marginal in last 24 hours and she is gotten several boluses of fluids Random urine sodium is very high and indicative of renal wasting rather than prerenal insufficiency and volume contraction Fractional sodium excretion is more than 1 We will give some Lasix to help patient along now that she is volume loaded Objective Vital Signs / I&O: Vital Signs 01/22/18 21:55 01/22/18 23:00 01/22/18 23:50 Temperature Pulse Rate Respiratory Rate 16 16 Blood Pressure Pulse Oximetry 100 100 100 01/23/18 00:00 01/23/18 04:00 01/23/18 04:03 Temperature 97.6 F 98 F Pulse Rate 68 78 Respiratory Rate 16 16 16 Blood Pressure 97/52 L 102/51 L Pulse Oximetry 100 98 98 01/23/18 08:00 01/23/18 08:34 01/23/18 11:30 Temperature 98.3 F Pulse Rate 74 Respiratory Rate 16 16 10 L Blood Pressure 96/54 L Pulse Oximetry 98 100 97 01/23/18 12:00 01/23/18 16:00 01/23/18 16:30 Temperature 98.3 F 98.3 F Pulse Rate 86 86 86 Respiratory Rate 11 L 10 L 10 L Blood Pressure 101/50 L 95/53 L Pulse Oximetry 99 99 01/23/18 16:31 Temperature Pulse Rate Respiratory Rate 15 Blood Pressure Pulse Oximetry 100 Intake & Output 01/23/18 01/23/18 01/24/18 06:59 18:59 06:59 Intake Total 1300 / 1300 4500 / 4500 Output Total 668 / 668 237 / 237 Balance 632 / 632 4263 / 4263 Weight 64.1 kg Intake: IV 1300 / 1300 4500 / 4500 Diprivan 1000 mg/100 ml Inj 1, 200 / 200 000 mg In 100 ml @ 5 MCG/KG/MIN 1.86 mls/hr IV.CONT TITRATE PRN Rx#:[id number] NS Inj 1,000 ML @ 999 mls/hr IV 1000 / 1000 1999 .CONT .Q1H1M [facility] Rx#:[id number] Alburx 5% Inj 500 ML @ As 500 / 500 Directed IV.SIG NOW ONE Rx#: [id number] KCl 40 mEq Premix Inj 40 meq In 100 / 100 100 ml @ 25 mls/hr IV.SIG Q2H PRN Rx#:[id number] NS Inj 1,000 ML @ 999 mls/hr IV 1999 .SIG .Q1H1M [facility] Rx#:[id number] Oral 0 / 0 Bladder Irrigation Fluid - 0 / 0 Amount Retained Coude 0 / 0 Output: Urine Amount (Catheter) 650 / 650 125 / 125 Coude 650 / 650 125 / 125 Gastric Drainage 100 / 100 Oral Orogastric Tube 100 / 100 Chest Tube Drainage #1 Left Pleural/Mediastinal Other: Bladder Irrigation Fluid - Amount Instilled Coude 120 Bladder Irrigation Fluid - Amount Drained Coude 120 # Bowel Movements 0 Result Diagrams: 01/23/18 04:58 09/20/18 18:55 Imaging: Impressions Chest X-Ray 01/23/18 06:00 CONCLUSION: No significant change Disinhibition Score: 14.00 Aggression Score: 14.00 Lability Score: 14.00 Agitated Behavior Total Score: 14 - 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 Patient has serial rib fractures on the left side with pulmonary laceration and contusion and therefore is not ready of course to be extubated Chest tube no more leak The subcutaneous emphysema is gradually resolving and reabsorbing as expected Abdomen/GI Nutrition: Abdomen soft active bowel sounds Renal/I&O: Renal function is adequate however patient's urine output has been marginal in last 24 hours and she is gotten several boluses of fluids Random urine sodium is very high and indicative of renal wasting rather than prerenal insufficiency and volume contraction Fractional sodium excretion is more than 1 We will give some Lasix to help patient along now that she is volume loaded Assessment and Plan Attestation: Critical care time 36 minutes
[2018-01-24] MEDS ORDERED: Sod Chloride 0.9% Inj 1,000 ML IV.SIG ONE (02:00)
[2018-01-24] MEDS: Oral Hygiene Kit OROPHARYNG SCH ×4 (04:22→16:34)
[2018-01-24] MEDS: Chlorhexidine Gluconate 2% 1 Pack (2 Cloths) TOPICAL SCH (04:22)
--- NOTE | 2018-01-24 04:50 | XR ---
EXAM DATE: 01/24/2018 4:14 AM EDT AGE/SEX: 87 years / Female INDICATIONS: Pneumothorax. CLINICAL DATA: This is the patient's subsequent encounter. Patient reports that signs and symptoms h ave been present for 3 days and indicates a pain score of Nonresponsive. MEDICAL/SURGICAL HISTORY: Non-responsive. Non-responsive. [place] [facility] [place]. . FINDINGS: Diffuse, mostly interstitial parenchymal opacities persist. No perceptible pneumothorax but there is persistent bilateral chest wall emphysema. A small left pleural effusion is present. A left chest tub e remains in place. Endotracheal tube tip is approximately 9 mm above the allen. Nasogastric tube has its tip in the sto mach. CONCLUSION: 1. Persistent diffuse interstitial opacities. 2. Small left pleural effusion, probably slightly larger than yesterday. 3. No perceptible pneumothorax but extensive chest wall emphysema persists. There is a left chest tu be. 4. Endotracheal tube tip is very close to the allen. Electronically signed by: Keith Wan MD 01/24/2018 4:48 AM EDT
[2018-01-24 05:10] LABS: Baso % (Auto) 0.3 % (0.0-2.0); Eos # (Auto) 0.1 th/mm3 (0.0-0.4); Eos % (Auto) 1.1 % (0.0-4.0); Hematocrit 33.6 % (35.0-46.0); Hemoglobin 10.4 gm/dL (11.6-15.3); Lymph % (Auto) 12.8 % (9.0-44.0); Mean Corpuscular Hemoglobin 28.2 pg (27.0-34.0); Mean Platelet Volume 9.3 fL (7.0-11.0); Mono # (Auto) 0.6 th/mm3 (0.0-0.9); Mono % (Auto) 8.2 % (0.0-8.0); Neut # (Auto) 5.9 th/mm3 (1.8-7.7); Neut % (Auto) 77.6 % (16.0-70.0); Platelet Count 198 th/mm3 (150-450); Red Blood Count 3.69 mil/mm3 (4.00-5.30); Red Cell Distribution Width 16.2 % (11.6-17.2); White Blood Count 7.6 th/mm3 (4.0-11.0)
[2018-01-24 05:22] LABS: Alanine Aminotransferase 85 U/L (10-53); Albumin 3.1 g/dL (3.4-5.0); Anion Gap 10 meq/L (5-15); Aspartate Aminotransferase 101 U/L (15-37); Blood Urea Nitrogen 23 mg/dL (7-18); Chloride 118 meq/L (98-107); Glomerular Filtration Rate 21 mL/min (>89); Glucose,Random 74 mg/dL (74-106); Potassium 4.5 meq/L (3.5-5.1); Sodium 147 meq/L (136-145)
[2018-01-24 05:24] LABS: Alkaline Phosphatase 179 U/L (45-117); Total Protein 6.1 g/dL (6.4-8.2)
[2018-01-24] MEDS: Propofol 1000 mg/100 ml Inj 1,000 MG/100 ML BOTTLE IV.CONT PRN ×3 (05:25→20:12)
[2018-01-24 06:16] LABS: ABG Base Excess -10.4 mmol/L (-2-2); ABG PCO2 55 mmHg (38-42); ABG PO2 91 mmHg (61-120)
[2018-01-24] MEDS: Sod Chloride 0.9% Inj 1,000 ML IV.CONT SCH (06:55)
[2018-01-24] MEDS ORDERED: Sodium Bicarbonate 8.4% Inj 50 MEQ/50 ML Syringe IV.PUSH ONE ×2 (08:15→10:30)
[2018-01-24 08:45] LABS: ABG Base Excess -10.9 mmol/L (-2-2); ABG PCO2 48 mmHg (38-42); ABG PO2 124 mmHg (61-120)
[2018-01-24] MEDS: Senna/Docusate Sodium 8.6/50 MG Tablet PO SCH ×3 (08:51→21:00)
[2018-01-24] MEDS: Chlorhexidine 0.12% Oral Kit 15 ML UDC OROPHARYNG SCH ×2 (08:51→20:25)
[2018-01-24] MEDS: Enoxaparin Inj 40 MG/0.4 ML Syringe SQ SCH (08:51)
[2018-01-24] MEDS: Escitalopram 10 MG Tablet PO SCH (08:51)
[2018-01-24] MEDS: Sodium Bicarbonate 8.4% Inj 50 MEQ in Dextrose 5%/NaCl 0.45% Inj 950 ML IV.CONT SCH ×2 (09:30→20:12)
--- NOTE | 2018-01-24 11:47 | CT ---
EXAM DATE: 01/24/2018 11:13 AM EDT AGE/SEX: 87 years / Female INDICATIONS: Trauma, fall, multiple rib fractures. CLINICAL DATA: This is the patient's subsequent encounter. Patient reports that signs and symptoms h ave been present for 4 - 6 days and indicates a pain score of Nonresponsive. MEDICAL/SURGICAL HISTORY: . Pneumothorax, subcutaneous emphysema. Non-responsive. RADIATION DOSE: 15.24 CTDI (mGy) COMPARISON: [facility], XR CHEST PA AND LAT, 12/22/2015. . TECHNIQUE: Multiple contiguous axial images were obtained through the abdomen. Images were obtained using multiple row detector helical technique. Using automated exposure control and adjustment of the mA and/or kV according to patient size, radiation dose was kept as low as reasonably achievable to o btain optimal diagnostic quality images. DICOM format image data is available electronically for rev iew and comparison. FINDINGS: Lower Lungs: Extensive subcutaneous emphysema is present with pneumothorax left lung base with chest tube in good position. Small amount of air remains in the anterior mediastinum. There is no pericardi al effusion. Trace right pleural effusion is evident. Lumbar spine is intact. Pelvis is intact. Moderate fatty replacement in the liver with trace fluid around the tip of the liver. Spleen and pancreas are unremarkable Right kidney is unremarkable. 3.4 cm left renal cyst. Extensive vascular calcifications. Rib fractures are noted. In spite of the extensive subjacent to the knee extending down into the pelvis there is no free air Fibroid uterus without free fluid. CONCLUSION: 1. Progression of the extensive subcutis emphysema. 2. Left chest tube in good position 3. Small amount of fluid about the tip of the liver 4. Multiple rib fractures Electronically signed by: Quinn Painting MD 01/24/2018 11:46 AM EDT
[2018-01-24 11:52] LABS: ABG PCO2 40 mmHg (38-42); ABG PO2 139 mmHg (61-120)
--- NOTE | 2018-01-24 12:09 | ECHRPT ---
Indication: BLUNT CHEST TRAUMA CONCLUSIONS Technically difficult studyNormal left ventricular size. Wall thickness is normal. The left ventricular systolic function is normal with an estimated ejection fraction in the range of 55-60%. There is no pericardial effusion. BP: / HR: Rhythm: MEASUREMENTS (Male / Female) Normal Values Technical Quality:Technically difficult study 2D ECHO LV Diastolic Diameter PLAX 4.1 cm 4.2 - 5.9 / 3.9 - 5.3 cm LV Systolic Diameter PLAX 3.1 cm IVS Diastolic Thickness 0.9 cm 0.6 - 1.0 / 0.6 - 0.9 cm LVPW Diastolic Thickness 0.7 cm 0.6 - 1.0 / 0.6 - 0.9 cm LV Relative Wall Thickness 0.4 RV Internal Dim ED PLAX 1.9 cm DOPPLER Mitral E Point Velocity 55.8 cm/s Mitral A Point Velocity 89.8 cm/s Mitral E to A Ratio 0.6 TR Peak Velocity 299.0 cm/s TR Peak Gradient 35.8 mmHg Right Atrial Pressure 10.0 mmHg Pulmonary Artery Systolic Pressu 45.8 mmHg Right Ventricular Systolic Press 45.8 mmHg FINDINGS LEFT VENTRICLE Normal left ventricular size. Wall thickness is normal. The left ventricular systolic function is normal with an estimated ejection fraction in the range of 55-60%. RIGHT VENTRICLE Normal right ventricular size and systolic function. LEFT ATRIUM The left atrial size is normal. RIGHT ATRIUM The right atrial size is normal. ATRIAL SEPTUM Normal atrial septal thickness without atrial level shunting by limited color doppler interrogation. AORTA The aortic root and proximal ascending aorta are normal in size on limited imaging. MITRAL VALVE Structurally normal mitral valve. No mitral valve stenosis or regurgitation. AORTIC VALVE The aortic valve is not well visualized. TRICUSPID VALVE The estimated pulmonary arterial pressure is 46 mmHg. PULMONARY VALVE No pulmonary valve regurgitation or stenosis. VESSELS The inferior vena cava is normal in size. PERICARDIUM There is no pericardial effusion. Nile Tinoco MD, FACC (Electronically Signed) Final Date:24 January 2018 12:09
[2018-01-24] MEDS: Pantoprazole Inj 40 MG Vial IV.PUSH SCH (13:09)
--- NOTE | 2018-01-24 13:38 | P.PNCC ---
Subjective Brief History: 88-year-old female fell at home from standing position when she tripped. Transferred to the emergency room awake and complaining of the pain on the left side of her chest. Patient transferred this priority 2 trauma alert and on arrival noted to have very extensive subcutaneous emphysema extending from the lower chest all the way to the neck and the face. Patient was resuscitated according trauma principles primary secondary survey resuscitation definitive care carried out and patient underwent full diagnostic and clinical workup Final diagnoses include Large left-sided pneumothorax. Extensive subcutaneous emphysema extending throughout the chest and upper abdomen bilaterally. Pneumomediastinum. Multiple acute fractures involving the left rib cage with significant displacement of the left 7, 8, 9 ribs and Nondisplaced fractures involving the left 5, 6, 10, and 11th ribs. Patient is now intubated and ventilated will remain on the ventilator for the duration. In the face of serial rib fractures and underlying pulmonary contusion patient will require prolonged intubation and ventilation and will eventually either come off the ventilator or may require tracheostomy Patient has underlying severe pulmonary emphysema has been a lifetime smoker I discussed this at length with the family and patient is DO NOT RESUSCITATE 24 Hour Review/Hospital Course: 01/23/2018 Patient has been stable throughout the night Neurologically she is improved she is opening eyes and following simple commands apparently responding to her family but remains sedated in the face of ventilatory support Hemodynamically stable Bilateral breath sounds on assist control ventilation and good PO2 FiO2 gradient on 40% FiO2. Patient has serial rib fractures on the left side with pulmonary laceration and contusion and therefore is not ready of course to be extubated Chest tube no more leak The subcutaneous emphysema is gradually resolving and reabsorbing as expected Abdomen soft active bowel sounds Renal function is adequate however patient's urine output has been marginal in last 24 hours and she is gotten several boluses of fluids Random urine sodium is very high and indicative of renal wasting rather than prerenal insufficiency and volume contraction Fractional sodium excretion is more than 1 We will give some Lasix to help patient along now that she is volume loaded 01/24/2018 Patient spent an uneventful night This morning arterial blood gas reveals combined respiratory and metabolic acidosis unknown cause and origin Patient was given 2 amps of bicarb in additionally volume loaded although she is euvolemic at this time Respiratory parameters have been changed on the ventilator in order to allow to blow off hypercapnia It is quite unclear why patient developed this acid-base disbalance Remains a small dose fentanyl and propofol for mild sedation and pain control Hemodynamically patient is stable Cardiac echo reveals ejection fraction about 60% and no other abnormalities Bilateral breath sounds no more pneumothorax and the subcutaneous emphysema is slowly resolving Chest tube minimal drainage and no air leak Abdomen is soft hypoactive bowel sounds no rebound no guarding no masses CT of the abdomen does not show any abnormalities and lactic acid is 1.4 Renal function has been precarious and last 24 hours. Despite adequate volume loading patient's urine output remained low and at this point is finally catching up and increasing. Slight increase in BUN and creatinine will have nephrology look at the patient In summary well and not sure well patient developed metabolic acidosis this appears to be a anion gap acidosis and the offending agent is certainly not present The only thing obvious is the volume constriction and hypovolemia in the past but this is been corrected therefore will see how patient does At this point there are no obvious sources of sepsis or any clinical causes for hemodynamic instability Objective Vital Signs / I&O: Vital Signs 01/23/18 16:00 01/23/18 16:30 01/23/18 16:31 Temperature 98.3 F Pulse Rate 86 86 Respiratory Rate 10 L 10 L 15 Blood Pressure 95/53 L Pulse Oximetry 99 100 01/23/18 20:00 01/23/18 21:25 01/24/18 00:00 Temperature 99.1 F 97.9 F Pulse Rate 92 H 90 87 Respiratory Rate 10 L 10 L 10 L Blood Pressure 105/55 L 117/81 Pulse Oximetry 97 97 100 01/24/18 00:10 01/24/18 04:00 01/24/18 04:01 Temperature 99.4 F Pulse Rate 108 H 106 H Respiratory Rate 10 L 12 10 L Blood Pressure 117/56 L Pulse Oximetry 94 L 96 98 01/24/18 08:00 01/24/18 09:00 01/24/18 09:43 Temperature 99.0 F Pulse Rate 81 82 Respiratory Rate 16 20 Blood Pressure 122/68 Pulse Oximetry 100 100 01/24/18 09:47 01/24/18 11:26 01/24/18 12:00 Temperature 99.4 F Pulse Rate 92 H 81 Respiratory Rate 20 20 Blood Pressure 112/58 L Pulse Oximetry 100 98 Intake & Output 01/23/18 01/24/18 01/24/18 18:59 06:59 18:59 Intake Total 4500 / 4500 2350 / 2350 Output Total 237 / 237 521 / 521 Balance 4263 / 4263 1829 / 1829 Weight 70.4 kg Intake: IV 4500 / 4500 2350 / 2350 Diprivan 1000 mg/100 ml Inj 1, 100 / 100 000 mg In 100 ml @ 5 MCG/KG/MIN 1.86 mls/hr IV.CONT TITRATE PRN Rx#:[id number] NS Inj 1,000 ML @ 100 mls/hr IV 1999 1000 / 1000 .CONT .Q10H BENNETT Rx#:[id number] Alburx 5% Inj 500 ML @ As 500 / 500 Directed IV.SIG NOW ONE Rx#: [id number] NS Inj 1,000 ML @ 999 mls/hr IV 1999 1000 / 1000 .SIG .Q1H1M ONE Rx#:[id number] fentaNYL 10 mcg/mL Premix Drip 250 / 250 2,500 mcg In 250 ml @ 50 MCG/HR 5 mls/hr IV.SIG TITRATE PRN Rx #:[id number] Bladder Irrigation Fluid - 0 / 0 Amount Retained Coude 0 / 0 Output: Urine Amount (Catheter) 125 / 125 300 / 300 Coude 125 / 125 Indwelling Urethral Catheter 300 / 300 Gastric Drainage 100 / 100 175 / 175 Oral Orogastric Tube 100 / 100 175 / 175 Chest Tube Drainage 46 / 46 #1 Left Pleural/Mediastinal 46 / 46 Other: Bladder Irrigation Fluid - Amount Instilled Coude 120 Bladder Irrigation Fluid - Amount Drained Coude 120 # Bowel Movements 0 Result Diagrams: 01/24/18 04:43 01/24/18 04:43 Imaging: Impressions Abdomen/Pelvis CT 01/24/18 00:00 CONCLUSION: 1. Progression of the extensive subcutis emphysema. 2. Left chest tube in good position 3. Small amount of fluid about the tip of the liver 4. Multiple rib fractures Chest X-Ray 01/24/18 00:00 CONCLUSION: 1. Persistent diffuse interstitial opacities. 2. Small left pleural effusion, probably slightly larger than yesterday. 3. No perceptible pneumothorax but extensive chest wall emphysema persists. There is a left chest tube. 4. Endotracheal tube tip is very close to the allen. 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 Remains on propofol and fentanyl for sedation Hemodynamic/Cardiac: This morning arterial blood gas reveals combined respiratory and metabolic acidosis unknown cause and origin Patient was given 2 amps of bicarb in additionally volume loaded although she is euvolemic at this time Respiratory parameters have been changed on the ventilator in order to allow to blow off hypercapnia It is quite unclear why patient developed this acid-base disbalance Remains a small dose fentanyl and propofol for mild sedation and pain control Hemodynamically patient is stable Cardiac echo reveals ejection fraction about 60% and no other abnormalities Pulmonary/Respiratory: Bilateral breath sounds no more pneumothorax and the subcutaneous emphysema is slowly resolving Chest tube minimal drainage and no air leak Abdomen/GI Nutrition: Abdomen is soft hypoactive bowel sounds no rebound no guarding no masses CT of the abdomen does not show any abnormalities and lactic acid is 1.4 Renal/I&O: Renal function has been precarious and last 24 hours. Despite adequate volume loading patient's urine output remained low and at this point is finally catching up and increasing. Slight increase in BUN and creatinine will have nephrology look at the patient Metabolic/Acid-Base: In summary well and not sure well patient developed metabolic acidosis this appears to be a anion gap acidosis and the offending agent is certainly not present The only thing obvious is the volume constriction and hypovolemia in the past but this is been corrected therefore will see how patient does At this point there are no obvious sources of sepsis or any clinical causes for hemodynamic instability Assessment and Plan Attestation: Critical care time 42 minutes
[2018-01-24] MEDS ORDERED: Enoxaparin Inj 30 MG/0.3 ML Syringe SQ SCH (18:00)
--- NOTE | 2018-01-24 18:03 | P.CONNP ---
History of Present Illness Service: Nephrology Reason for Consult: SALVATORE, metabolic acidosis Primary Care Provider: UNKNOWN History of Present Illness: Ms. Hodge is an 87 year old lady with history of tobacco abuse, and COPD who fell in her room and was brought to the ER. She suffered several rib fractures, pneumomediastinum, pneumothorax and subcutaneous emphysema. Patient had a creatinine of 0.5 on arrival. It has progressively increased. Patient also had developed normal anion gap metabolic acidosis. She is now on a bicarbonate drip at 100 ml/hour in addition to NS at 100 ml/hour. She has made about 600 ml of urine in about 11 hours. Patient did receive IV contrast as part of her CT on 01/22/18. She did receive a dose of Lasix yesterday. Review of Systems unobtainable due to endotracheal tube PMFSH - History History Provided By: Family Member - Tobacco History Second Hand Smoke Exposure: Yes Smoking Status: Former smoker Tobacco Type: Cigarettes - Alcohol History How Often Do You Have a Drink Containing Alcohol: 2 to 4 times a month - Substance Use History Substance History: No History of Abuse Medications and Allergies Active Medications: Active Medications Albuterol (Duoneb Neb (Prn)) 1 ampul NEB Q2HR NEB PRN PRN Reason: SHORTNESS OF BREATH Albuterol (Duoneb Neb (Alfonso)) 1 ampul NEB Q6HR NEB [facility] Last Admin: 01/24/18 16:12 Dose: 1 ampul Chlorhexidine Gluconate (Chlorhexidine 2% Cloth) 3 pack TOPICAL DAILY@0400 PRN PRN Reason: Extra cloth needed Stop: 01/28/18 03:59 Chlorhexidine Gluconate (Chlorhexidine 2% Cloth) 3 pack TOPICAL DAILY@0400 [facility] Stop: 01/28/18 03:59 Last Admin: 01/24/18 04:22 Dose: 3 pack Chlorhexidine Gluconate (Peridex 0.12% Oral Kit) 15 ml OROPHARYNG BID@0800, 2000 [facility] Last Admin: 01/24/18 08:51 Dose: 15 ml Enalaprilat (Vasotec Inj) 1.25 mg IV.PUSH Q8H PRN PRN Reason: Blood pressure 180/95 Enoxaparin Sodium (Lovenox Inj) 30 mg SQ DAILY@1800 ALFONSO Escitalopram Oxalate (Lexapro) 5 mg PO DAILY [facility] Last Admin: 01/24/18 08:51 Dose: 5 mg Magnesium Sulfate 4 gm/ Sodium (Chloride) 100 mls @ 50 mls/hr IV.SIG UNSCH PRN PRN Reason: For Magnesium 0.9 - 1.1 mg/dL Magnesium Sulfate 2 gm/ Sodium (Chloride) 100 mls @ 50 mls/hr IV.SIG UNSCH PRN PRN Reason: For Magnesium 1.2 - 1.6 mg/dL Potassium Chloride (Kcl 40 Meq Premix Inj) 40 meq in 100 mls @ 25 mls/hr IV.SIG Q2H PRN PRN Reason: For Potassium 2.8 - 3.2 mEq/L Last Infusion: 01/22/18 19:50 Dose: Infused Potassium Chloride (Kcl 20 Meq Premix Inj) 20 meq in 100 mls @ 50 mls/hr IV.SIG Q2H PRN PRN Reason: For Potassium 3.3 - 3.5 mEq/L Potassium Chloride (Kcl 40 Meq Premix Inj) 40 meq in 100 mls @ 25 mls/hr IV.SIG UNSCH PRN PRN Reason: For Potassium 3.3 - 3.5 mEq/L Potassium Chloride (Kcl 20 Meq Premix Inj) 20 meq in 100 mls @ 50 mls/hr IV.SIG Q2H PRN PRN Reason: For Potassium 2.8 - 3.2 mEq/L Potassium Phosphate 30 mmol/ (Sodium Chloride) 260 mls @ 42 mls/hr IV.SIG UNSCH PRN PRN Reason: SEE LABEL COMMENTS Sodium Phosphate 30 mmol/ (Sodium Chloride) 260 mls @ 42 mls/hr IV.SIG UNSCH PRN PRN Reason: For Phosphorus < 2.5 mg/dL Fentanyl (Fentanyl 10 Mcg/Ml Premix Drip) 2,500 mcg in 250 mls @ 5 mls/hr IV.SIG TITRATE PRN; Protocol PRN Reason: Per Protocol Last Admin: 01/24/18 00:00 Dose: 200 mcg/hr, 20 mls/hr Propofol (Diprivan 1000 Mg/100 Ml Inj) 1,000 mg in 100 mls @ 1.86 mls/hr IV.CONT TITRATE PRN; Protocol PRN Reason: Per Protocol Last Admin: 01/24/18 05:25 Dose: 20 mcg/kg/min, 7.44 mls/hr Sodium Bicarbonate 50 meq/ (Dextrose/Sodium Chloride) 1,000 mls @ 100 mls/hr IV.CONT .Q10H [facility] Last Admin: 01/24/18 09:30 Dose: 100 mls/hr Lactulose (Lactulose Liq) 30 ml PO DAILY PRN PRN Reason: CONSTIPATION Magnesium Oxide (Mag-Ox) 800 mg PO UNSCH PRN PRN Reason: For Magnesium 1.2 - 1.6 mg/dL Miscellaneous (Pill Splitter) 1 each OTHER UNSCH [facility] Miscellaneous Medication () 1 each OROPHARYNG 0000,0400,1200,1600 [facility] Last Admin: 01/24/18 16:34 Dose: 1 each Ondansetron HCl (Zofran Inj) 4 mg IV.PUSH Q6H PRN PRN Reason: NAUSEA OR VOMITING Pantoprazole Sodium (Protonix Inj) 40 mg IV.PUSH Q24H [facility] Last Admin: 01/24/18 13:09 Dose: 40 mg Potassium Bicarb/Potassium Chloride (K-Lyte Cl Eff) 50 meq PO UNSCH PRN PRN Reason: For Potassium 3.3 - 3.5 mEq/L Potassium Phosphate (K-Phos Original) 2,000 mg PO Q4H PRN PRN Reason: Phosphorus Less Than 2.5 mg/dL Potassium Phosphate (K-Phos Original) 2,000 mg PO UNSCH PRN PRN Reason: SEE LABEL COMMENTS Senna/Docusate Sodium (Kamryn-Colace) 1 tab PO BID [facility] Last Admin: 01/24/18 08:51 Dose: 1 tab Sodium Chloride (Ns Flush) 2 ml IV.FLUSH UNSCH PRN PRN Reason: FLUSH AFTER USING IV ACCESS Allergies Allergy/AdvReac Type Severity Reaction Status Date / Time Penicillins AdvReac Severe Anaphylaxis Verified 01/23/18 06:39 Home Medications Medication Instructions Recorded Confirmed Type albuterol sulfate 1 puff INHALATION Q4-6H PRN [facility] 01/22/18 01/22/18 History 10mg escitalopram oxalate 5 mg PO DAILY 01/22/18 01/22/18 History hydroxyzine HCl 25 mg PO QID PRN MDD 10mg 01/22/18 01/24/18 History zolpidem [Ambien] PRN 01/22/18 History Exam Vital signs: Vital Signs 01/23/18 20:00 01/23/18 21:25 01/24/18 00:00 Temperature 99.1 F 97.9 F Pulse Rate 92 H 90 87 Respiratory Rate 10 L 10 L 10 L Blood Pressure 105/55 L 117/81 Pulse Oximetry 97 97 100 01/24/18 00:10 01/24/18 04:00 01/24/18 04:01 Temperature 99.4 F Pulse Rate 108 H 106 H Respiratory Rate 10 L 12 10 L Blood Pressure 117/56 L Pulse Oximetry 94 L 96 98 01/24/18 08:00 01/24/18 09:00 01/24/18 09:43 Temperature 99.0 F Pulse Rate 81 82 Respiratory Rate 16 20 Blood Pressure 122/68 Pulse Oximetry 100 100 01/24/18 09:47 01/24/18 11:26 01/24/18 12:00 Temperature 99.4 F Pulse Rate 92 H 81 Respiratory Rate 20 20 Blood Pressure 112/58 L Pulse Oximetry 100 98 01/24/18 16:00 01/24/18 16:13 Temperature Pulse Rate 82 75 Respiratory Rate 20 Blood Pressure 112/58 L Pulse Oximetry 100 Intake & Output 01/23/18 01/24/18 01/24/18 18:59 06:59 18:59 Intake Total 4500 / 4500 2350 / 2350 1000 / 1000 Output Total 237 / 237 521 / 521 Balance 4263 / 4263 1829 / 1829 1000 / 1000 Weight 70.4 kg Intake: IV 4500 / 4500 2350 / 2350 1000 / 1000 Diprivan 1000 mg/100 ml Inj 1, 100 / 100 000 mg In 100 ml @ 5 MCG/KG/MIN 1.86 mls/hr IV.CONT TITRATE PRN Rx#:[id number] NS Inj 1,000 ML @ 100 mls/hr IV 1999 1000 / 1000 1000 / 1000 .CONT .Q10H ALFONSO Rx#:[id number] Alburx 5% Inj 500 ML @ As 500 / 500 Directed IV.SIG NOW ONE Rx#: [id number] NS Inj 1,000 ML @ 999 mls/hr IV 1999 1000 / 1000 .SIG .Q1H1M ONE Rx#:[id number] fentaNYL 10 mcg/mL Premix Drip 250 / 250 2,500 mcg In 250 ml @ 50 MCG/HR 5 mls/hr IV.SIG TITRATE PRN Rx #:[id number] Bladder Irrigation Fluid - 0 / 0 Amount Retained Coude 0 / 0 Output: Urine Amount (Catheter) 125 / 125 300 / 300 Coude 125 / 125 Indwelling Urethral Catheter 300 / 300 Gastric Drainage 100 / 100 175 / 175 Oral Orogastric Tube 100 / 100 175 / 175 Chest Tube Drainage #1 Left Pleural/Mediastinal Other: Bladder Irrigation Fluid - Amount Instilled Coude 120 Bladder Irrigation Fluid - Amount Drained Coude 120 # Bowel Movements 0 - Constitutional chronically ill appearing Comments: intubated, sedated, on the ventilator. - Routine HEENT Exam Head: Present: normocephalic, atraumatic Eye: Present: PERRL - Routine Chest/Breast/Axilla Exam Chest wall: Present: chest tube Comments: subcutaneous air. - Routine Respiratory Exam Present: patient mechanically ventilated - Routine Cardiovascular Exam Present: RRR, S1, S2 - Routine Abdominal Exam Present: soft, distended - Routine Extremities Exam Present: edema - Routine Neurological Exam sedated on the ventilator. Results - Lab Results 01/24/18 04:43 01/24/18 04:43 Most recent lab results ABG pH 7.32 (7.380-7.420) L 01/24/18 11:40 ABG pCO2 40 mmHg (38-42) 01/24/18 11:40 ABG pO2 139 mmHg (61-120) H 01/24/18 11:40 ABG HCO3 20 mmol/L (22-26) L 01/24/18 11:40 Calcium 8.0 mg/dL (8.5-10.1) L 01/24/18 04:43 Assessment and Plan - Assessment (1) Acute kidney injury Code(s): N17.9 - Acute kidney failure, unspecified Status: Acute Plan: patient received IV contrast with CT on 01/22/18 and so it is possible that she has suffered contrast nephropathy. She has not received NSAIDs or other nephrotoxic agents. Did receive IV Vasotec. May have suffered ATN. At this time, she is non oliguric, but demonstrates volume overload and fluid retention. I will reduce IVF and start Bumex. I will also obtain CPK and repeat UA. Avoid nephrotoxic agents. Monitor urine output and renal function. Non oliguric, no indication for dialysis. Discussed with family. (2) Metabolic acidosis Code(s): E87.2 - Acidosis Status: Acute Plan: patient has combined metabolic and respiratory acidosis. It is possible that metabolic acidosis got worse due to development of renal failure and use of chloride containing fluids. Improving. It is normal gap acidosis. I will reduce bicarbonate drip. Start Bumex. Monitor. (3) Pneumothorax on left Code(s): J93.9 - Pneumothorax, unspecified Status: Acute Plan: s/p chest tube. (4) Multiple rib fractures Code(s): S22.49XA - Multiple fractures of ribs, unspecified side, initial encounter for closed fracture Status: Acute Plan: management per trauma team. (5) Subcutaneous emphysema due to trauma Code(s): T79.7XXA - Traumatic subcutaneous emphysema, initial encounter Status : Acute - Attending Attestation Thanks for the consult. (4) Multiple rib fractures Qualifiers: Encounter type: initial encounter Fracture type: closed Laterality: left Qualified Code(s): S22.42XA - Multiple fractures of ribs, left side, initial encounter for closed fracture (5) Subcutaneous emphysema due to trauma Qualifiers: Encounter type: initial encounter Qualified Code(s): T79.7XXA - Traumatic subcutaneous emphysema, initial encounter
[2018-01-24] MEDS: fentaNYL 10 mcg/mL Premix Drip 2,500 MCG/250 ML BAG IV.SIG PRN ×2 (18:26)
[2018-01-24 20:53] LABS: Creatine Kinase MB 7.7 ng/mL (0.5-3.6)
[2018-01-25] MEDS: Oral Hygiene Kit OROPHARYNG SCH ×4 (00:32→16:01)
[2018-01-25] MEDS: Propofol 1000 mg/100 ml Inj 1,000 MG/100 ML BOTTLE IV.CONT PRN ×2 (02:33→05:15)
--- NOTE | 2018-01-25 03:53 | XR ---
EXAM DATE: 01/25/2018 3:47 AM EDT AGE/SEX: 87 years / Female INDICATIONS: Shortness of breath, evaluate for pneumothorax CLINICAL DATA: This is the patient's subsequent encounter. Patient reports that signs and symptoms h ave been present for 4 - 6 days and indicates a pain score of Nonresponsive. MEDICAL/SURGICAL HISTORY: Chronic obstructive pulmonary disease. Chest tube, left. COMPARISON: [facility] – [place], CHEST 1V SINGLE AP, 01/24/2018. . FINDINGS: Mild patchy parenchymal opacities again seen of both lungs, mostly basilar and peripheral. No pleural effusion or pneumothorax demonstrated. Chest wall emphysema again noted. Left chest tube remains in place. Endotracheal tube tip is approximately 1 cm above the allen. There is a nasogastric tube coursing in to the stomach. CONCLUSION: 1. No significant change patchy parenchymal opacities of both lungs. 2. Left chest tube remains in place. No pneumothorax seen but there is persistent bilateral chest wa ll emphysema. 3. Endotracheal tube tip again seen to be close to the allen. Electronically signed by: Keith Wan MD 01/25/2018 3:51 AM EDT
[2018-01-25] MEDS: Chlorhexidine Gluconate 2% 1 Pack (2 Cloths) TOPICAL SCH (04:23)
[2018-01-25 04:39] LABS: Baso % (Auto) 0.3 % (0.0-2.0); Eos # (Auto) 0.3 th/mm3 (0.0-0.4); Eos % (Auto) 2.7 % (0.0-4.0); Hematocrit 28.9 % (35.0-46.0); Hemoglobin 9.6 gm/dL (11.6-15.3); Lymph # (Auto) 1.2 th/mm3 (1.0-4.8); Lymph % (Auto) 12.2 % (9.0-44.0); Mean Corpuscular HGB Conc 33.2 % (32.0-36.0); Mean Corpuscular Hemoglobin 28.5 pg (27.0-34.0); Mean Platelet Volume 10.1 fL (7.0-11.0); Mono # (Auto) 0.7 th/mm3 (0.0-0.9); Neut # (Auto) 7.5 th/mm3 (1.8-7.7); Neut % (Auto) 77.8 % (16.0-70.0); Platelet Count 189 th/mm3 (150-450); Red Blood Count 3.36 mil/mm3 (4.00-5.30); Red Cell Distribution Width 15.4 % (11.6-17.2); White Blood Count 9.6 th/mm3 (4.0-11.0)
[2018-01-25 05:03] LABS: Albumin 2.3 g/dL (3.4-5.0); Calcium 7.5 mg/dL (8.5-10.1); Carbon Dioxide 21.9 meq/L (21.0-32.0); Phosphorus 2.7 mg/dL (2.5-4.9)
[2018-01-25 05:04] LABS: Albumin 2.3 g/dL (3.4-5.0); Calcium 7.4 mg/dL (8.5-10.1); Carbon Dioxide 22.9 meq/L (21.0-32.0); Total Protein 5.4 g/dL (6.4-8.2)
[2018-01-25] MEDS: fentaNYL 10 mcg/mL Premix Drip 2,500 MCG/250 ML BAG IV.SIG PRN (05:15)
[2018-01-25 05:47] LABS: ABG PCO2 36 mmHg (38-42); ABG PO2 92 mmHg (61-120)
[2018-01-25] MEDS: Potassium Chlor 20 mEq Premix 20 MEQ/100 ML PIGGYBACK IV.SIG PRN ×3 (06:27→17:00)
[2018-01-25 09:49] LABS: Eosinophils 4 % (0-4); Lymphocytes 13 % (9-44); Monocytes 4 % (0-8); Toxic Granulation 2+
[2018-01-25 09:50] LABS: Platelet Estimate Normal (Normal); Platelet Morphology Clumped (Normal)
[2018-01-25] MEDS ORDERED: Dextrose 5% in Water Inj 1,000 ML IV.CONT SCH (10:00)
[2018-01-25] MEDS ORDERED: Dextrose 5%/NaCl 0.45% Inj 1,000 ML IV.CONT SCH (10:02)
[2018-01-25] MEDS: Enoxaparin Inj 30 MG/0.3 ML Syringe SQ SCH (10:04)
[2018-01-25] MEDS: Senna/Docusate Sodium 8.6/50 MG Tablet PO SCH ×2 (10:05→21:35)
[2018-01-25] MEDS: Escitalopram 10 MG Tablet PO SCH (10:05)
[2018-01-25] MEDS: Chlorhexidine 0.12% Oral Kit 15 ML UDC OROPHARYNG SCH ×2 (10:06→21:35)
--- NOTE | 2018-01-25 13:29 | P.PNNP ---
Subjective Interval history: Excellent urine output. Renal function is slightly better. Hypernatremia is noted. Physical Exam Vital signs: Vital Signs 01/24/18 16:00 01/24/18 16:13 01/24/18 20:00 Temperature 98.5 F 98.3 F Pulse Rate 76 75 83 Respiratory Rate 20 20 20 Blood Pressure 157/69 H 158/77 H Pulse Oximetry 100 100 100 01/24/18 20:24 01/24/18 20:31 01/25/18 00:00 Temperature 98.4 F Pulse Rate 77 101 H Respiratory Rate 20 20 20 Blood Pressure 155/70 H Pulse Oximetry 100 01/25/18 00:40 01/25/18 03:51 01/25/18 03:57 Temperature Pulse Rate 82 Respiratory Rate 20 20 20 Blood Pressure Pulse Oximetry 100 98 01/25/18 04:00 01/25/18 07:49 01/25/18 07:51 Temperature 97.5 F L Pulse Rate 83 78 Respiratory Rate 20 20 20 Blood Pressure 123/59 L Pulse Oximetry 100 100 01/25/18 08:00 01/25/18 09:00 01/25/18 11:03 Temperature 98.3 F Pulse Rate 77 83 Respiratory Rate 20 22 Blood Pressure 150/65 H Pulse Oximetry 100 100 01/25/18 12:00 Temperature 99.1 F Pulse Rate 95 H Respiratory Rate 20 Blood Pressure 129/70 Pulse Oximetry 99 Intake & Output 01/24/18 01/25/18 01/25/18 18:59 06:59 18:59 Intake Total 1350 / 1350 1550 / 1550 800 / 800 Output Total 680 / 680 2360 / 2360 Balance 670 / 670 -810 / -810 800 / 800 Weight 71.3 kg Intake: IV 1350 / 1350 1550 / 1550 800 / 800 Diprivan 1000 mg/100 ml Inj 1, 100 / 100 300 / 300 000 mg In 100 ml @ 5 MCG/KG/MIN 1.86 mls/hr IV.CONT TITRATE PRN Rx#:[id number] NS Inj 1,000 ML @ 100 mls/hr IV 1000 / 1000 .CONT .Q10H [facility] Rx#:[id number] Sodium Bicarbonate 8.4% Inj 50 1000 / 1000 700 / 700 MEQ In D5W/1/2 NS Inj 950 ML @ 50 mls/hr IV.CONT .Q20H [facility] Rx# :[id number] KCl 20 mEq Premix Inj 20 meq In 100 / 100 100 ml @ 50 mls/hr IV.SIG Q2H PRN Rx#:[id number] KCl 40 mEq Premix Inj 40 meq In 0 / 0 100 ml @ 25 mls/hr IV.SIG Q2H PRN Rx#:[id number] fentaNYL 10 mcg/mL Premix Drip 250 / 250 250 / 250 2,500 mcg In 250 ml @ 50 MCG/HR 5 mls/hr IV.SIG TITRATE PRN Rx #:[id number] Oral 0 / 0 Output: Stool 0 / 0 Urine Amount (Catheter) 550 / 550 2200 / 2200 Indwelling Urethral Catheter 550 / 550 2200 / 2200 Gastric Drainage 50 / 50 50 / 50 Oral Orogastric Tube 50 / 50 50 / 50 Chest Tube Drainage 80 / 80 110 / 110 #1 Left Pleural/Mediastinal 80 / 80 110 / 110 Other: # Bowel Movements 0 0 - Constitutional Comments: on the ventilator. Sedated. - Routine HEENT Exam Head: Present: normocephalic, atraumatic ENT: Present: mucous membranes moist - Routine Neck Exam Absent: JVD, lymphadenopathy, thyromegaly - Routine Respiratory Exam Present: patient mechanically ventilated - Routine Cardiovascular Exam Present: RRR, S1, S2 - Routine Abdominal Exam Present: soft, normoactive bowel sounds - Routine Extremities Exam Comments: Edema has improved. - Urinary Catheter Management Coude Cath placed during this visit: no Indwelling Urethral Catheter Cath placed during this visit: yes Reason for continuing: Acute urinary retention Insertion date: 01/23/18 Insertion time: 21:50 Assessment and Plan - Assessment (1) Acute kidney injury Code(s): N17.9 - Acute kidney failure, unspecified Status: Acute Plan: patient received IV contrast with CT on 01/22/18 and so it is possible that she has suffered contrast nephropathy. She has not received NSAIDs or other nephrotoxic agents. Did receive IV Vasotec. May have suffered ATN. At this time, she is non oliguric, responded to diuretics. Change IVF to D5W. Add free water flushes with tube feeds. CPK not very high, does not have rhabdomyolysis. Start Diuril. No need for bicarbonate drip. Avoid nephrotoxic agents. (2) Metabolic acidosis Code(s): E87.2 - Acidosis Status: Acute Plan: patient has combined metabolic and respiratory acidosis. It is possible that metabolic acidosis got worse due to development of renal failure and use of chloride containing fluids. Improved. (3) Pneumothorax on left Code(s): J93.9 - Pneumothorax, unspecified Status: Acute Plan: s/p chest tube. (4) Multiple rib fractures Code(s): S22.49XA - Multiple fractures of ribs, unspecified side, initial encounter for closed fracture Status: Acute Qualifiers: Encounter type: initial encounter Fracture type: closed Laterality: left Qualified Code(s): S22.42XA - Multiple fractures of ribs, left side, initial encounter for closed fracture Plan: management per trauma team. (5) Subcutaneous emphysema due to trauma Code(s): T79.7XXA - Traumatic subcutaneous emphysema, initial encounter Status : Acute Qualifiers: Encounter type: initial encounter Qualified Code(s): T79.7XXA - Traumatic subcutaneous emphysema, initial encounter
[2018-01-25] MEDS ORDERED: Dextrose 5% in Water Inj 1,000 ML IV.SIG SCH (14:15)
[2018-01-25] MEDS: Pantoprazole Inj 40 MG Vial IV.PUSH SCH (14:40)
[2018-01-25] MEDS: Chlorothiazide Inj 500 MG Vial IV.PUSH SCH (15:53)
--- NOTE | 2018-01-25 16:00 | P.PNCC ---
Subjective Brief History: 88-year-old female fell at home from standing position when she tripped. Transferred to the emergency room awake and complaining of the pain on the left side of her chest. Patient transferred this priority 2 trauma alert and on arrival noted to have very extensive subcutaneous emphysema extending from the lower chest all the way to the neck and the face. Patient was resuscitated according trauma principles primary secondary survey resuscitation definitive care carried out and patient underwent full diagnostic and clinical workup Final diagnoses include Large left-sided pneumothorax. Extensive subcutaneous emphysema extending throughout the chest and upper abdomen bilaterally. Pneumomediastinum. Multiple acute fractures involving the left rib cage with significant displacement of the left 7, 8, 9 ribs and Nondisplaced fractures involving the left 5, 6, 10, and 11th ribs. Patient is now intubated and ventilated will remain on the ventilator for the duration. In the face of serial rib fractures and underlying pulmonary contusion patient will require prolonged intubation and ventilation and will eventually either come off the ventilator or may require tracheostomy Patient has underlying severe pulmonary emphysema has been a lifetime smoker I discussed this at length with the family and patient is DO NOT RESUSCITATE 24 Hour Review/Hospital Course: 01/23/2018 Patient has been stable throughout the night Neurologically she is improved she is opening eyes and following simple commands apparently responding to her family but remains sedated in the face of ventilatory support Hemodynamically stable Bilateral breath sounds on assist control ventilation and good PO2 FiO2 gradient on 40% FiO2. Patient has serial rib fractures on the left side with pulmonary laceration and contusion and therefore is not ready of course to be extubated Chest tube no more leak The subcutaneous emphysema is gradually resolving and reabsorbing as expected Abdomen soft active bowel sounds Renal function is adequate however patient's urine output has been marginal in last 24 hours and she is gotten several boluses of fluids Random urine sodium is very high and indicative of renal wasting rather than prerenal insufficiency and volume contraction Fractional sodium excretion is more than 1 We will give some Lasix to help patient along now that she is volume loaded 01/24/2018 Patient spent an uneventful night This morning arterial blood gas reveals combined respiratory and metabolic acidosis unknown cause and origin Patient was given 2 amps of bicarb in additionally volume loaded although she is euvolemic at this time Respiratory parameters have been changed on the ventilator in order to allow to blow off hypercapnia It is quite unclear why patient developed this acid-base disbalance Remains a small dose fentanyl and propofol for mild sedation and pain control Hemodynamically patient is stable Cardiac echo reveals ejection fraction about 60% and no other abnormalities Bilateral breath sounds no more pneumothorax and the subcutaneous emphysema is slowly resolving Chest tube minimal drainage and no air leak Abdomen is soft hypoactive bowel sounds no rebound no guarding no masses CT of the abdomen does not show any abnormalities and lactic acid is 1.4 Renal function has been precarious and last 24 hours. Despite adequate volume loading patient's urine output remained low and at this point is finally catching up and increasing. Slight increase in BUN and creatinine will have nephrology look at the patient In summary well and not sure well patient developed metabolic acidosis this appears to be a anion gap acidosis and the offending agent is certainly not present The only thing obvious is the volume constriction and hypovolemia in the past but this is been corrected therefore will see how patient does At this point there are no obvious sources of sepsis or any clinical causes for hemodynamic instability 01/25/2018 Patient neurologically stable on sedation vacation opens eyes and follows commands intermittently Remains on decreasing doses of propofol Available next few days as far as pulmonary function is concerned but I want to make sure the patient is metabolically stabilized Hemodynamically stable Bilateral breath sounds good PO2 FiO2 gradient on 40% FiO2 with good pulmonary excursion and mechanics Metabolic alkalosis has resolved and was probably due to some volume constriction Abdomen soft will start on enteral diet Renal function improving and nephrology consult greatly appreciated DC bicarbonate drip and start patient on D5 half-normal saline in face of mild hypernatremia Continue care Objective Vital Signs / I&O: Vital Signs 01/24/18 16:00 01/24/18 16:13 01/24/18 20:00 Temperature 98.5 F 98.3 F Pulse Rate 76 75 83 Respiratory Rate 20 20 20 Blood Pressure 157/69 H 158/77 H Pulse Oximetry 100 100 100 01/24/18 20:24 01/24/18 20:31 01/25/18 00:00 Temperature 98.4 F Pulse Rate 77 101 H Respiratory Rate 20 20 20 Blood Pressure 155/70 H Pulse Oximetry 100 01/25/18 00:40 01/25/18 03:51 01/25/18 03:57 Temperature Pulse Rate 82 Respiratory Rate 20 20 20 Blood Pressure Pulse Oximetry 100 98 01/25/18 04:00 01/25/18 07:49 01/25/18 07:51 Temperature 97.5 F L Pulse Rate 83 78 Respiratory Rate 20 20 20 Blood Pressure 123/59 L Pulse Oximetry 100 100 01/25/18 08:00 01/25/18 09:00 01/25/18 11:03 Temperature 98.3 F Pulse Rate 77 83 Respiratory Rate 20 22 Blood Pressure 150/65 H Pulse Oximetry 100 100 01/25/18 12:00 01/25/18 15:09 01/25/18 15:14 Temperature 99.1 F Pulse Rate 95 H 117 H Respiratory Rate 20 21 21 Blood Pressure 129/70 Pulse Oximetry 99 97 Intake & Output 01/24/18 01/25/18 01/25/18 18:59 06:59 18:59 Intake Total 1350 / 1350 1550 / 1550 1100 / 1100 Output Total 680 / 680 2360 / 2360 Balance 670 / 670 -810 / -810 1100 / 1100 Weight 71.3 kg Intake: IV 1350 / 1350 1550 / 1550 900 / 900 Diprivan 1000 mg/100 ml Inj 1, 100 / 100 300 / 300 000 mg In 100 ml @ 5 MCG/KG/MIN 1.86 mls/hr IV.CONT TITRATE PRN Rx#:[id number] NS Inj 1,000 ML @ 100 mls/hr IV 1000 / 1000 .CONT .Q10H [facility] Rx#:[id number] Sodium Bicarbonate 8.4% Inj 50 1000 / 1000 700 / 700 MEQ In D5W/1/2 NS Inj 950 ML @ 50 mls/hr IV.CONT .Q20H [facility] Rx# :[id number] KCl 20 mEq Premix Inj 20 meq In 200 / 200 100 ml @ 50 mls/hr IV.SIG Q2H PRN Rx#:[id number] KCl 40 mEq Premix Inj 40 meq In 0 / 0 100 ml @ 25 mls/hr IV.SIG Q2H PRN Rx#:[id number] fentaNYL 10 mcg/mL Premix Drip 250 / 250 250 / 250 2,500 mcg In 250 ml @ 50 MCG/HR 5 mls/hr IV.SIG TITRATE PRN Rx #:[id number] Oral 0 / 0 Water Bolus Amount 200 / 200 Output: Stool 0 / 0 Urine Amount (Catheter) 550 / 550 2200 / 2200 Indwelling Urethral Catheter 550 / 550 2200 / 2200 Gastric Drainage 50 / 50 50 / 50 Oral Orogastric Tube 50 / 50 50 / 50 Chest Tube Drainage 80 / 80 110 / 110 #1 Left Pleural/Mediastinal 80 / 80 110 / 110 Other: # Bowel Movements 0 0 Result Diagrams: 01/25/18 03:40 01/25/18 03:40 Imaging: Impressions Chest X-Ray 01/25/18 06:00 CONCLUSION: 1. No significant change patchy parenchymal opacities of both lungs. 2. Left chest tube remains in place. No pneumothorax seen but there is persistent bilateral chest wall emphysema. 3. Endotracheal tube tip again seen to be close to the allen. 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: Patient neurologically stable on sedation vacation opens eyes and follows commands intermittently Remains on decreasing doses of propofol Hemodynamic/Cardiac: Hemodynamically patient remained stable Pulmonary/Respiratory: Probably extubatable in the next few days as far as pulmonary function is concerned but I want to make sure the patient is metabolically stabilized Hemodynamically stable Bilateral breath sounds good PO2 FiO2 gradient on 40% FiO2 with good pulmonary excursion and mechanics Metabolic alkalosis has resolved and was probably due to some volume constriction Abdomen/GI Nutrition: Abdomen soft will start on enteral diet Renal/I&O: Renal function gradually improving and nephrology consult is greatly appreciated Patient might have suffered some degree of ATN and remained somewhat volume constricted hence the transient metabolic acidosis Creatinine BUN improving patient remains with good urine output DC bicarbonate drip and start patient on D5 half-normal saline in face of mild hypernatremia Assessment and Plan Attestation: Critical care time 32 minutes
[2018-01-26] MEDS: Oral Hygiene Kit OROPHARYNG SCH ×4 (00:55→17:19)
[2018-01-26] MEDS: fentaNYL 10 mcg/mL Premix Drip 2,500 MCG/250 ML BAG IV.SIG PRN ×2 (00:56→22:34)
[2018-01-26] MEDS: Chlorhexidine Gluconate 2% 1 Pack (2 Cloths) TOPICAL SCH (03:12)
--- NOTE | 2018-01-26 03:58 | XR ---
EXAM DATE: 01/26/2018 3:46 AM EDT AGE/SEX: 87 years / Female INDICATIONS: Shortness of breath, possible pulmonary disease. CLINICAL DATA: This is the patient's subsequent encounter. Patient reports that signs and symptoms h ave been present for 1 week and indicates a pain score of Nonresponsive. MEDICAL/SURGICAL HISTORY: Chronic obstructive pulmonary disease. Non-responsive. COMPARISON: [facility] [place], CHEST 1V SINGLE AP, 01/25/2018. . FINDINGS: Diffuse interstitial opacities of both lungs are again noted and not significantly changed. No pleura l effusion demonstrated. No pneumothorax seen. Left chest tube remains in place. Extensive bilateral chest wall emphysema again noted. Heart size stable, within normal limits. Endotracheal tube tip is approximately 4 cm above the allen. Nasogastric tube courses into the stoma ch. CONCLUSION: No significant change. Chest wall emphysema again noted but no perceptible pneumothorax. Electronically signed by: Keith Wan MD 01/26/2018 3:57 AM EDT
[2018-01-26 04:52] LABS: Baso # (Auto) 0.1 th/mm3 (0.0-0.2); Baso % (Auto) 0.6 % (0.0-2.0); Eos # (Auto) 0.2 th/mm3 (0.0-0.4); Eos % (Auto) 2.1 % (0.0-4.0); Hematocrit 30.8 % (35.0-46.0); Hemoglobin 10.2 gm/dL (11.6-15.3); Lymph # (Auto) 1.2 th/mm3 (1.0-4.8); Lymph % (Auto) 13.4 % (9.0-44.0); Mean Corpuscular HGB Conc 33.1 % (32.0-36.0); Mean Corpuscular Hemoglobin 28.4 pg (27.0-34.0); Mean Corpuscular Volume 85.9 fL (80.0-100.0); Mean Platelet Volume 9.8 fL (7.0-11.0); Mono # (Auto) 0.9 th/mm3 (0.0-0.9); Mono % (Auto) 9.5 % (0.0-8.0); Neut # (Auto) 6.7 th/mm3 (1.8-7.7); Neut % (Auto) 74.4 % (16.0-70.0); Platelet Count 257 th/mm3 (150-450); Red Blood Count 3.59 mil/mm3 (4.00-5.30); Red Cell Distribution Width 15.1 % (11.6-17.2)
[2018-01-26 05:12] LABS: Alanine Aminotransferase 47 U/L (10-53); Albumin 2.5 g/dL (3.4-5.0); Anion Gap 9 meq/L (5-15); Aspartate Aminotransferase 30 U/L (15-37); Blood Urea Nitrogen 20 mg/dL (7-18); Calcium 8.1 mg/dL (8.5-10.1); Carbon Dioxide 23.6 meq/L (21.0-32.0); Chloride 112 meq/L (98-107); Glomerular Filtration Rate 33 mL/min (>89); Glucose,Random 130 mg/dL (74-106); Potassium 3.6 meq/L (3.5-5.1); Sodium 145 meq/L (136-145)
[2018-01-26 05:14] LABS: Alkaline Phosphatase 192 U/L (45-117); Phosphorus 2.1 mg/dL (2.5-4.9); Total Protein 6.1 g/dL (6.4-8.2)
[2018-01-26 06:28] LABS: ABG Base Excess 0.3 mmol/L (-2-2); ABG PCO2 32 mmHg (38-42); ABG PO2 130 mmHg (61-120)
[2018-01-26] MEDS: Chlorhexidine 0.12% Oral Kit 15 ML UDC OROPHARYNG SCH ×2 (08:00→20:00)
[2018-01-26] MEDS: Escitalopram 10 MG Tablet PO SCH (09:06)
[2018-01-26] MEDS: Enoxaparin Inj 30 MG/0.3 ML Syringe SQ SCH (09:07)
[2018-01-26] MEDS: Chlorothiazide Inj 500 MG Vial IV.PUSH SCH (09:07)
[2018-01-26] MEDS: Potassium Phosphate 500 MG Soluble Tablet PO PRN ×2 (09:18→15:11)
[2018-01-26] MEDS: Senna/Docusate Sodium 8.6/50 MG Tablet PO SCH (10:37)
[2018-01-26] MEDS: Metoprolol Tartrate 25 MG Tablet PO SCH ×2 (10:40→18:14)
[2018-01-26] MEDS: amLODIPine 5 MG Tablet PO SCH (10:41)
--- NOTE | 2018-01-26 11:23 | P.PNNP ---
Subjective Interval history: patient was seen and examined. She is on the ventilator, opens eyes. Non oliguric. Renal function has improved. Physical Exam Vital signs: Vital Signs 01/25/18 12:00 01/25/18 15:09 01/25/18 15:14 Temperature 99.1 F Pulse Rate 95 H 117 H Respiratory Rate 20 21 21 Blood Pressure 129/70 Pulse Oximetry 99 97 01/25/18 16:00 01/25/18 20:00 01/25/18 21:29 Temperature 100.6 F H 100.9 F H Pulse Rate 113 H 96 H Respiratory Rate 23 21 20 Blood Pressure 181/79 H 155/68 H Pulse Oximetry 96 99 98 01/25/18 21:33 01/26/18 00:00 01/26/18 00:48 Temperature 100.8 F H Pulse Rate 104 H 96 H Respiratory Rate 21 22 20 Blood Pressure 162/72 H Pulse Oximetry 99 01/26/18 04:00 01/26/18 04:54 01/26/18 04:55 Temperature 100.8 F H Pulse Rate 97 H 107 H Respiratory Rate 23 21 20 Blood Pressure 131/63 Pulse Oximetry 99 100 01/26/18 08:00 01/26/18 08:38 01/26/18 08:44 Temperature 98 F Pulse Rate 93 H 107 H Respiratory Rate 24 28 H 24 Blood Pressure 169/70 H Pulse Oximetry 98 100 01/26/18 10:00 Temperature Pulse Rate 108 H Respiratory Rate Blood Pressure Pulse Oximetry Intake & Output 01/25/18 01/26/18 01/26/18 18:59 06:59 18:59 Intake Total 1650 / 1650 1576 / 1576 Output Total 828 / 828 975 / 975 Balance 822 / 822 601 / 601 Weight 71.2 kg Intake: IV 1000 / 1000 848 / 848 Sodium Bicarbonate 8.4% Inj 50 700 / 700 MEQ In D5W/1/2 NS Inj 950 ML @ 50 mls/hr IV.CONT .Q20H [facility] Rx# :[id number] D5W Inj 500 ML @ 50 mls/hr IV. 500 / 500 SIG .Q10H [facility] Rx#:[id number] KCl 20 mEq Premix Inj 20 meq In 300 / 300 100 / 100 100 ml @ 50 mls/hr IV.SIG Q2H PRN Rx#:[id number] fentaNYL 10 mcg/mL Premix Drip 248 / 248 2,500 mcg In 250 ml @ 50 MCG/HR 5 mls/hr IV.SIG TITRATE PRN Rx #:[id number] Tube Feeding 50 / 50 298 / 298 Tube Irrigant 30 / 30 Water Bolus Amount 400 / 400 400 / 400 Other 200 / 200 Output: Urine Amount (Catheter) 700 / 700 950 / 950 Indwelling Urethral Catheter 700 / 700 950 / 950 Chest Tube Drainage 128 / 128 / 25 #1 Left Pleural/Mediastinal 128 / 128 Other: Date of Last Bowel Movement 01/26/18 01/26/18 # Bowel Movements 0 1 Narrative: On the ventilator. Opens eyes. Chest: subcutaneous air. Left sided chest tube. Orally intubated. Abdomen: soft. RRR Decrease in edema. - Urinary Catheter Management Coude Cath placed during this visit: no Indwelling Urethral Catheter Cath placed during this visit: yes Reason for continuing: Hourly intake/output Insertion date: 01/23/18 Insertion time: 21:50 Assessment and Plan - Assessment (1) Acute kidney injury Code(s): N17.9 - Acute kidney failure, unspecified Status: Acute Plan: patient received IV contrast with CT on 01/22/18 and so it is possible that she has suffered contrast nephropathy. She has not received NSAIDs or other nephrotoxic agents. Did receive IV Vasotec. May have suffered ATN. Renal function has improved. Non oliguric. Fluid overload has improved. D5W stopped by trauma surgery. I will stop Diuril. Expect continued improvement. Free water administration for hypernatremia which also has improved. (2) Metabolic acidosis Code(s): E87.2 - Acidosis Status: Acute Plan: Improved. (3) Pneumothorax on left Code(s): J93.9 - Pneumothorax, unspecified Status: Acute Plan: s/p chest tube. (4) Multiple rib fractures Code(s): S22.49XA - Multiple fractures of ribs, unspecified side, initial encounter for closed fracture Status: Acute Qualifiers: Encounter type: initial encounter Fracture type: closed Laterality: left Qualified Code(s): S22.42XA - Multiple fractures of ribs, left side, initial encounter for closed fracture Plan: management per trauma team. (5) Subcutaneous emphysema due to trauma Code(s): T79.7XXA - Traumatic subcutaneous emphysema, initial encounter Status : Acute Qualifiers: Encounter type: initial encounter Qualified Code(s): T79.7XXA - Traumatic subcutaneous emphysema, initial encounter
--- NOTE | 2018-01-26 12:00 | P.PNCC ---
Subjective Brief History: 88-year-old female fell at home from standing position when she tripped. Transferred to the emergency room awake and complaining of the pain on the left side of her chest. Patient transferred this priority 2 trauma alert and on arrival noted to have very extensive subcutaneous emphysema extending from the lower chest all the way to the neck and the face. Patient was resuscitated according trauma principles primary secondary survey resuscitation definitive care carried out and patient underwent full diagnostic and clinical workup Final diagnoses include Large left-sided pneumothorax. Extensive subcutaneous emphysema extending throughout the chest and upper abdomen bilaterally. Pneumomediastinum. Multiple acute fractures involving the left rib cage with significant displacement of the left 7, 8, 9 ribs and Nondisplaced fractures involving the left 5, 6, 10, and 11th ribs. Patient is now intubated and ventilated will remain on the ventilator for the duration. In the face of serial rib fractures and underlying pulmonary contusion patient will require prolonged intubation and ventilation and will eventually either come off the ventilator or may require tracheostomy Patient has underlying severe pulmonary emphysema has been a lifetime smoker I discussed this at length with the family and patient is DO NOT RESUSCITATE 24 Hour Review/Hospital Course: 01/23/2018 Patient has been stable throughout the night Neurologically she is improved she is opening eyes and following simple commands apparently responding to her family but remains sedated in the face of ventilatory support Hemodynamically stable Bilateral breath sounds on assist control ventilation and good PO2 FiO2 gradient on 40% FiO2. Patient has serial rib fractures on the left side with pulmonary laceration and contusion and therefore is not ready of course to be extubated Chest tube no more leak The subcutaneous emphysema is gradually resolving and reabsorbing as expected Abdomen soft active bowel sounds Renal function is adequate however patient's urine output has been marginal in last 24 hours and she is gotten several boluses of fluids Random urine sodium is very high and indicative of renal wasting rather than prerenal insufficiency and volume contraction Fractional sodium excretion is more than 1 We will give some Lasix to help patient along now that she is volume loaded 01/24/2018 Patient spent an uneventful night This morning arterial blood gas reveals combined respiratory and metabolic acidosis unknown cause and origin Patient was given 2 amps of bicarb in additionally volume loaded although she is euvolemic at this time Respiratory parameters have been changed on the ventilator in order to allow to blow off hypercapnia It is quite unclear why patient developed this acid-base disbalance Remains a small dose fentanyl and propofol for mild sedation and pain control Hemodynamically patient is stable Cardiac echo reveals ejection fraction about 60% and no other abnormalities Bilateral breath sounds no more pneumothorax and the subcutaneous emphysema is slowly resolving Chest tube minimal drainage and no air leak Abdomen is soft hypoactive bowel sounds no rebound no guarding no masses CT of the abdomen does not show any abnormalities and lactic acid is 1.4 Renal function has been precarious and last 24 hours. Despite adequate volume loading patient's urine output remained low and at this point is finally catching up and increasing. Slight increase in BUN and creatinine will have nephrology look at the patient In summary well and not sure well patient developed metabolic acidosis this appears to be a anion gap acidosis and the offending agent is certainly not present The only thing obvious is the volume constriction and hypovolemia in the past but this is been corrected therefore will see how patient does At this point there are no obvious sources of sepsis or any clinical causes for hemodynamic instability 01/25/2018 Patient neurologically stable on sedation vacation opens eyes and follows commands intermittently Remains on decreasing doses of propofol Available next few days as far as pulmonary function is concerned but I want to make sure the patient is metabolically stabilized Hemodynamically stable Bilateral breath sounds good PO2 FiO2 gradient on 40% FiO2 with good pulmonary excursion and mechanics Metabolic alkalosis has resolved and was probably due to some volume constriction Abdomen soft will start on enteral diet Renal function improving and nephrology consult greatly appreciated DC bicarbonate drip and start patient on D5 half-normal saline in face of mild hypernatremia Continue care 01/26/2018 Patient is definitely improving Decrease sedation allows for patient to communicate She is very anxious on the respirator and fentanyl has been decreased to be substituted with p.o. Roxicet via NG tube Bilateral good breath sounds good PO2 FiO2 gradient and good pulmonary excursion Patient tolerating CPAP well and she will stay on CPAP during the day to be switched to rate at night She is not quite ready to extubate yet but will extubate most likely tomorrow Objective Vital Signs / I&O: Vital Signs 01/25/18 12:00 01/25/18 15:09 01/25/18 15:14 Temperature 99.1 F Pulse Rate 95 H 117 H Respiratory Rate 20 21 21 Blood Pressure 129/70 Pulse Oximetry 99 97 01/25/18 16:00 01/25/18 20:00 01/25/18 21:29 Temperature 100.6 F H 100.9 F H Pulse Rate 113 H 96 H Respiratory Rate 23 21 20 Blood Pressure 181/79 H 155/68 H Pulse Oximetry 96 99 98 01/25/18 21:33 01/26/18 00:00 01/26/18 00:48 Temperature 100.8 F H Pulse Rate 104 H 96 H Respiratory Rate 21 22 20 Blood Pressure 162/72 H Pulse Oximetry 99 01/26/18 04:00 01/26/18 04:54 01/26/18 04:55 Temperature 100.8 F H Pulse Rate 97 H 107 H Respiratory Rate 23 21 20 Blood Pressure 131/63 Pulse Oximetry 99 100 01/26/18 08:00 01/26/18 08:38 01/26/18 08:44 Temperature 98 F Pulse Rate 93 H 107 H Respiratory Rate 24 28 H 24 Blood Pressure 169/70 H Pulse Oximetry 98 100 01/26/18 10:00 Temperature Pulse Rate 108 H Respiratory Rate Blood Pressure Pulse Oximetry Intake & Output 01/25/18 01/26/18 01/26/18 18:59 06:59 18:59 Intake Total 1650 / 1650 1576 / 1576 Output Total 828 / 828 975 / 975 Balance 822 / 822 601 / 601 Weight 71.2 kg Intake: IV 1000 / 1000 848 / 848 Sodium Bicarbonate 8.4% Inj 50 700 / 700 MEQ In D5W/1/2 NS Inj 950 ML @ 50 mls/hr IV.CONT .Q20H BENNETT Rx# :[id number] D5W Inj 500 ML @ 50 mls/hr IV. 500 / 500 SIG .Q10H BENNETT Rx#:[id number] KCl 20 mEq Premix Inj 20 meq In 300 / 300 100 / 100 100 ml @ 50 mls/hr IV.SIG Q2H PRN Rx#:[id number] fentaNYL 10 mcg/mL Premix Drip 248 / 248 2,500 mcg In 250 ml @ 50 MCG/HR 5 mls/hr IV.SIG TITRATE PRN Rx #:[id number] Tube Feeding 50 / 50 298 / 298 Tube Irrigant 30 / 30 Water Bolus Amount 400 / 400 400 / 400 Other 200 / 200 Output: Urine Amount (Catheter) 700 / 700 950 / 950 Indwelling Urethral Catheter 700 / 700 950 / 950 Chest Tube Drainage 128 / 128 25 / 25 #1 Left Pleural/Mediastinal 128 / 128 Other: Date of Last Bowel Movement 01/26/18 01/26/18 # Bowel Movements 0 1 Result Diagrams: 01/26/18 03:46 01/26/18 03:46 Imaging: Impressions Chest X-Ray 01/26/18 06:00 CONCLUSION: No significant change. Chest wall emphysema again noted but no perceptible pneumothorax. 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 Roxicet via NG tube Hemodynamic/Cardiac: Hemodynamically patient remained stable Pulmonary/Respiratory: Bilateral good breath sounds good PO2 FiO2 gradient and good pulmonary excursion Patient tolerating CPAP well and she will stay on CPAP during the day to be switched to rate at night She is not quite ready to extubate yet but will extubate most likely tomorrow Abdomen/GI Nutrition: Abdomen soft bowel sounds patient is on enteral feeds Renal/I&O: Renal function preserved and improving Nephrology help and expertise is greatly appreciated Metabolic acid-base disbalance with metabolic acidosis has improved and normalized Assessment and Plan Attestation: Critical care 32 minutes
[2018-01-26] MEDS: Pantoprazole Inj 40 MG Vial IV.PUSH SCH (15:11)
--- NOTE | 2018-01-26 16:11 | P.DIET ---
Nutritional Evaluation Type of nutrition evaluation: initial Nutrition consult regarding: Tube Feeding Subjective Subjective Comments: Fell at home. Objective - Diagnosis Trauma - Objective % IBW: 131 (IBW = 120#) Body Weight Used for Calculations: IBW (54.5) Energy Needs - Lower Range (kCal/kg): 25 Energy Needs - Upper Range (kCal/kg): 30 Lower Limit kCal/kg (kCals): 1,364 Upper Limit kCal/kg (kCals): 1,635 Lower Limit Protein Factor (Grams per Kg): 1.0 Upper Limit Protein Factor (Grams per Kg): 1.5 Lower Protein Needs (Protein): 55 Upper Protein Needs (Protein): 82 Dietitian Reviewed in Medical Record: Curent medications, Intake & Output, Labs , Medical history, Tube feeding Diet Order: NPO Feeding - Current Tube Feeding Tube Feeding Product: Jevity 1.5 Tube Feeding Rate: 50 Current kCals Provided by Tube Feedin,800 Current Protein Provided by Tube Feeding (gPRO): 77 Current Free H2O Provided (m/l): 912 Assessment Assessment: Pt is at high nutrition risk 2' to trauma and the need for TFing. To meet nutritional needs with Jevity 1.5, recommend goal rate of 45 mls/hr to provide 1620 kcals, 69 gms protein and 821 mls of free water. Recommendations: Jevity 1.5 @ 45 mls/hr goal Dietitian to Monitor: Lab values, Tube feeding tolerance, Weight change, Medical course
[2018-01-27] MEDS: Oral Hygiene Kit OROPHARYNG SCH ×3 (00:05→13:06)
[2018-01-27 03:42] LABS: Baso % (Auto) 0.4 % (0.0-2.0); Eos # (Auto) 0.2 th/mm3 (0.0-0.4); Hematocrit 28.4 % (35.0-46.0); Hemoglobin 9.2 gm/dL (11.6-15.3); Lymph % (Auto) 10.1 % (9.0-44.0); Mean Corpuscular HGB Conc 32.3 % (32.0-36.0); Mean Corpuscular Hemoglobin 27.9 pg (27.0-34.0); Mean Corpuscular Volume 86.4 fL (80.0-100.0); Mean Platelet Volume 9.3 fL (7.0-11.0); Mono # (Auto) 0.9 th/mm3 (0.0-0.9); Mono % (Auto) 8.9 % (0.0-8.0); Neut % (Auto) 78.6 % (16.0-70.0); Platelet Count 252 th/mm3 (150-450); Red Blood Count 3.29 mil/mm3 (4.00-5.30); Red Cell Distribution Width 14.9 % (11.6-17.2); White Blood Count 10.2 th/mm3 (4.0-11.0)
[2018-01-27] MEDS: Metoprolol Tartrate 25 MG Tablet PO SCH ×2 (04:09→12:03)
[2018-01-27] MEDS: Chlorhexidine Gluconate 2% 1 Pack (2 Cloths) TOPICAL SCH (04:09)
--- NOTE | 2018-01-27 05:44 | XR ---
EXAM DATE: 01/27/2018 5:40 AM EDT AGE/SEX: 87 years / Female INDICATIONS: Respiratory disease. CLINICAL DATA: This is the patient's subsequent encounter. Patient reports that signs and symptoms h ave been present for 4 - 6 days and indicates a pain score of 3/10. MEDICAL/SURGICAL HISTORY: Chronic obstructive pulmonary disease. Left side pneumothorax. . Ina st tube. COMPARISON: [facility] [place], CHEST 1V SINGLE AP, 01/26/2018. . FINDINGS: Single AP view the chest. Extensive bilateral subcutaneous emphysema again seen. No evidence of pneum othorax. Endotracheal tube, left-sided chest tube, and nasogastric tube remain in place. Lungs are cl ear. Right-sided proximal humerus fracture again seen. CONCLUSION: No significant interval change. Extensive subcutaneous emphysema. No evidence of pneumothorax. Electronically signed by: Sami Houston MD 01/27/2018 5:43 AM EDT
[2018-01-27 06:11] LABS: ABG PCO2 46 mmHg (38-42); ABG PO2 215 mmHg (61-120)
[2018-01-27] MEDS: Chlorhexidine 0.12% Oral Kit 15 ML UDC OROPHARYNG SCH ×2 (08:54→20:12)
[2018-01-27] MEDS: Enoxaparin Inj 30 MG/0.3 ML Syringe SQ SCH (08:55)
[2018-01-27] MEDS: Escitalopram 10 MG Tablet PO SCH (08:55)
[2018-01-27 09:19] LABS: Albumin 2.3 g/dL (3.4-5.0); Anion Gap 6 meq/L (5-15); Aspartate Aminotransferase 28 U/L (15-37); Blood Urea Nitrogen 20 mg/dL (7-18); Calcium 8.7 mg/dL (8.5-10.1); Carbon Dioxide 28.7 meq/L (21.0-32.0); Chloride 108 meq/L (98-107); Glomerular Filtration Rate 53 mL/min (>89); Glucose,Random 130 mg/dL (74-106); Potassium 3.8 meq/L (3.5-5.1); Sodium 143 meq/L (136-145)
--- NOTE | 2018-01-27 09:27 | P.PNNP ---
Subjective Interval history: Patient is on the ventilator. She is awake, responds to verbal cues. Physical Exam Vital signs: Vital Signs 01/26/18 10:00 01/26/18 12:00 01/26/18 14:00 Temperature 99.2 F Pulse Rate 108 H 98 H 83 Respiratory Rate 9 L Blood Pressure 168/116 H Pulse Oximetry 100 01/26/18 14:38 01/26/18 16:00 01/26/18 16:17 Temperature 98.1 F Pulse Rate 73 Respiratory Rate 12 16 12 Blood Pressure 128/73 Pulse Oximetry 100 100 01/26/18 16:22 01/26/18 18:00 01/26/18 20:00 Temperature 98.3 F Pulse Rate 73 82 73 Respiratory Rate 12 12 Blood Pressure 108/65 Pulse Oximetry 100 01/26/18 21:00 01/26/18 21:05 01/26/18 23:30 Temperature Pulse Rate 81 Respiratory Rate 19 17 10 L Blood Pressure Pulse Oximetry 100 95 01/27/18 00:00 01/27/18 03:15 01/27/18 03:17 Temperature 98.1 F Pulse Rate 71 78 Respiratory Rate 10 L 11 L 10 L Blood Pressure 104/54 L Pulse Oximetry 98 100 01/27/18 04:00 Temperature 98.2 F Pulse Rate 98 H Respiratory Rate 21 Blood Pressure 124/60 Pulse Oximetry 100 Intake & Output 01/26/18 01/27/18 01/27/18 18:59 06:59 18:59 Intake Total 1114 / 1114 1594 / 1594 Output Total 1530 / 1530 1555 / 1555 Balance -416 / -416 39 / 39 Weight 71.2 kg Intake: IV 250 / 250 fentaNYL 10 mcg/mL Premix Drip 250 / 250 2,500 mcg In 250 ml @ 50 MCG/HR 5 mls/hr IV.SIG TITRATE PRN Rx #:[id number] Oral 0 / 0 Tube Feeding 454 / 454 454 / 454 Tube Irrigant 30 / 30 Water Bolus Amount 660 / 660 660 / 660 Other 200 / 200 Output: Stool 0 / 0 Urine Amount (Catheter) 950 / 950 950 / 950 Indwelling Urethral Catheter 950 / 950 950 / 950 Gastric Drainage 580 / 580 580 / 580 Oral Orogastric Tube 580 / 580 580 / 580 Chest Tube Drainage #1 Left Pleural/Mediastinal Other: Date of Last Bowel Movement 01/26/18 01/26/18 # Bowel Movements 1 1 # Incontinent Bowel Movements 1 1 Narrative: On the ventilator. Opens eyes. Chest: subcutaneous air. Left sided chest tube. Orally intubated. Abdomen: soft. RRR Decrease in edema. - Urinary Catheter Management Coude Cath placed during this visit: no Indwelling Urethral Catheter Cath placed during this visit: yes Reason for continuing: Hourly intake/output Insertion date: 01/23/18 Insertion time: 21:50 Assessment and Plan - Assessment (1) Acute kidney injury Code(s): N17.9 - Acute kidney failure, unspecified Status: Acute Plan: Renal function has improved. Avoid nephrotoxic agents. Monitor fluid and electrolytes. . (2) Metabolic acidosis Code(s): E87.2 - Acidosis Status: Acute Plan: Improved. (3) Pneumothorax on left Code(s): J93.9 - Pneumothorax, unspecified Status: Acute Plan: s/p chest tube. (4) Multiple rib fractures Code(s): S22.49XA - Multiple fractures of ribs, unspecified side, initial encounter for closed fracture Status: Acute Qualifiers: Encounter type: initial encounter Fracture type: closed Laterality: left Qualified Code(s): S22.42XA - Multiple fractures of ribs, left side, initial encounter for closed fracture Plan: management per trauma team. (5) Subcutaneous emphysema due to trauma Code(s): T79.7XXA - Traumatic subcutaneous emphysema, initial encounter Status : Acute Qualifiers: Encounter type: initial encounter Qualified Code(s): T79.7XXA - Traumatic subcutaneous emphysema, initial encounter - Attending Attestation I will sign off at this time. Thanks for the consult.
[2018-01-27 09:35] LABS: Alanine Aminotransferase 40 U/L (10-53); Alkaline Phosphatase 145 U/L (45-117); Phosphorus 3.2 mg/dL (2.5-4.9)
[2018-01-27] MEDS: amLODIPine 5 MG Tablet PO SCH (12:03)
[2018-01-27] MEDS: Senna/Docusate Sodium 8.6/50 MG Tablet PO SCH ×2 (12:03→21:55)
[2018-01-27] MEDS: Pantoprazole Inj 40 MG Vial IV.PUSH SCH (13:06)
[2018-01-27] MEDS ORDERED: ALPRAZolam 0.25 MG Tablet PO ONE (14:15)
--- NOTE | 2018-01-27 15:26 | P.PNCC ---
Subjective Brief History: 88-year-old female fell at home from standing position when she tripped. Transferred to the emergency room awake and complaining of the pain on the left side of her chest. Patient transferred this priority 2 trauma alert and on arrival noted to have very extensive subcutaneous emphysema extending from the lower chest all the way to the neck and the face. Patient was resuscitated according trauma principles primary secondary survey resuscitation definitive care carried out and patient underwent full diagnostic and clinical workup Final diagnoses include Large left-sided pneumothorax. Extensive subcutaneous emphysema extending throughout the chest and upper abdomen bilaterally. Pneumomediastinum. Multiple acute fractures involving the left rib cage with significant displacement of the left 7, 8, 9 ribs and Nondisplaced fractures involving the left 5, 6, 10, and 11th ribs. Patient is now intubated and ventilated will remain on the ventilator for the duration. In the face of serial rib fractures and underlying pulmonary contusion patient will require prolonged intubation and ventilation and will eventually either come off the ventilator or may require tracheostomy Patient has underlying severe pulmonary emphysema has been a lifetime smoker I discussed this at length with the family and patient is DO NOT RESUSCITATE 24 Hour Review/Hospital Course: 01/23/2018 Patient has been stable throughout the night Neurologically she is improved she is opening eyes and following simple commands apparently responding to her family but remains sedated in the face of ventilatory support Hemodynamically stable Bilateral breath sounds on assist control ventilation and good PO2 FiO2 gradient on 40% FiO2. Patient has serial rib fractures on the left side with pulmonary laceration and contusion and therefore is not ready of course to be extubated Chest tube no more leak The subcutaneous emphysema is gradually resolving and reabsorbing as expected Abdomen soft active bowel sounds Renal function is adequate however patient's urine output has been marginal in last 24 hours and she is gotten several boluses of fluids Random urine sodium is very high and indicative of renal wasting rather than prerenal insufficiency and volume contraction Fractional sodium excretion is more than 1 We will give some Lasix to help patient along now that she is volume loaded 01/24/2018 Patient spent an uneventful night This morning arterial blood gas reveals combined respiratory and metabolic acidosis unknown cause and origin Patient was given 2 amps of bicarb in additionally volume loaded although she is euvolemic at this time Respiratory parameters have been changed on the ventilator in order to allow to blow off hypercapnia It is quite unclear why patient developed this acid-base disbalance Remains a small dose fentanyl and propofol for mild sedation and pain control Hemodynamically patient is stable Cardiac echo reveals ejection fraction about 60% and no other abnormalities Bilateral breath sounds no more pneumothorax and the subcutaneous emphysema is slowly resolving Chest tube minimal drainage and no air leak Abdomen is soft hypoactive bowel sounds no rebound no guarding no masses CT of the abdomen does not show any abnormalities and lactic acid is 1.4 Renal function has been precarious and last 24 hours. Despite adequate volume loading patient's urine output remained low and at this point is finally catching up and increasing. Slight increase in BUN and creatinine will have nephrology look at the patient In summary well and not sure well patient developed metabolic acidosis this appears to be a anion gap acidosis and the offending agent is certainly not present The only thing obvious is the volume constriction and hypovolemia in the past but this is been corrected therefore will see how patient does At this point there are no obvious sources of sepsis or any clinical causes for hemodynamic instability 01/25/2018 Patient neurologically stable on sedation vacation opens eyes and follows commands intermittently Remains on decreasing doses of propofol Available next few days as far as pulmonary function is concerned but I want to make sure the patient is metabolically stabilized Hemodynamically stable Bilateral breath sounds good PO2 FiO2 gradient on 40% FiO2 with good pulmonary excursion and mechanics Metabolic alkalosis has resolved and was probably due to some volume constriction Abdomen soft will start on enteral diet Renal function improving and nephrology consult greatly appreciated DC bicarbonate drip and start patient on D5 half-normal saline in face of mild hypernatremia Continue care 01/26/2018 Patient is definitely improving Decrease sedation allows for patient to communicate She is very anxious on the respirator and fentanyl has been decreased to be substituted with p.o. Roxicet via NG tube Bilateral good breath sounds good PO2 FiO2 gradient and good pulmonary excursion Patient tolerating CPAP well and she will stay on CPAP during the day to be switched to rate at night She is not quite ready to extubate yet but will extubate most likely tomorrow 01/27/2018 Patient gradually improving and doing very well today Sedation removed Remains hemodynamically stable Bilateral good breath sounds tolerated CPAP very well and pulmonary mechanics have greatly improved Extubate patient today Out of bed Will do bedside swallow and perhaps start patient on diet Aggressive PT OT and patient to be out of bed We will remove chest tube tomorrow Objective Vital Signs / I&O: Vital Signs 01/26/18 16:00 01/26/18 16:17 01/26/18 16:22 Temperature 98.1 F Pulse Rate 73 73 Respiratory Rate 16 12 12 Blood Pressure 128/73 Pulse Oximetry 100 100 01/26/18 18:00 01/26/18 20:00 01/26/18 21:00 Temperature 98.3 F Pulse Rate 82 73 Respiratory Rate 12 19 Blood Pressure 108/65 Pulse Oximetry 100 100 01/26/18 21:05 01/26/18 23:30 01/27/18 00:00 Temperature 98.1 F Pulse Rate 81 71 Respiratory Rate 17 10 L 10 L Blood Pressure 104/54 L Pulse Oximetry 95 98 01/27/18 03:15 01/27/18 03:17 01/27/18 04:00 Temperature 98.2 F Pulse Rate 78 98 H Respiratory Rate 11 L 10 L 21 Blood Pressure 124/60 Pulse Oximetry 100 100 01/27/18 08:00 01/27/18 09:06 01/27/18 12:00 Temperature 98.4 F 97.8 F Pulse Rate 90 95 H 97 H Respiratory Rate 32 H Blood Pressure 165/77 H 138/60 Pulse Oximetry 98 100 98 01/27/18 13:25 Temperature Pulse Rate Respiratory Rate 40 H Blood Pressure Pulse Oximetry 98 Intake & Output 01/26/18 01/27/18 01/27/18 18:59 06:59 18:59 Intake Total 1114 / 1114 1594 / 1594 Output Total 1530 / 1530 1555 / 1555 Balance -416 / -416 39 / 39 Weight 71.2 kg Intake: IV 250 / 250 fentaNYL 10 mcg/mL Premix Drip 250 / 250 2,500 mcg In 250 ml @ 50 MCG/HR 5 mls/hr IV.SIG TITRATE PRN Rx #:[id number] Oral 0 / 0 Tube Feeding 454 / 454 454 / 454 Tube Irrigant 30 / 30 Water Bolus Amount 660 / 660 660 / 660 Other 200 / 200 Output: Stool 0 / 0 Urine Amount (Catheter) 950 / 950 950 / 950 Indwelling Urethral Catheter 950 / 950 950 / 950 Gastric Drainage 580 / 580 580 / 580 Oral Orogastric Tube 580 / 580 580 / 580 Chest Tube Drainage #1 Left Pleural/Mediastinal Other: Date of Last Bowel Movement 01/26/18 01/26/18 01/26/18 # Bowel Movements 1 1 # Incontinent Bowel Movements 1 1 Result Diagrams: 01/27/18 02:59 01/27/18 08:35 Imaging: Impressions Chest X-Ray 01/27/18 06:00 CONCLUSION: No significant interval change. Extensive subcutaneous emphysema. No evidence of pneumothorax. 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
[2018-01-27] MEDS ORDERED: Propofol Inj 500 MG/50 ML Vial ONE (17:37)
--- NOTE | 2018-01-27 17:59 | P.PNCC ---
Subjective Brief History: 88-year-old female fell at home from standing position when she tripped. Transferred to the emergency room awake and complaining of the pain on the left side of her chest. Patient transferred this priority 2 trauma alert and on arrival noted to have very extensive subcutaneous emphysema extending from the lower chest all the way to the neck and the face. Patient was resuscitated according trauma principles primary secondary survey resuscitation definitive care carried out and patient underwent full diagnostic and clinical workup Final diagnoses include Large left-sided pneumothorax. Extensive subcutaneous emphysema extending throughout the chest and upper abdomen bilaterally. Pneumomediastinum. Multiple acute fractures involving the left rib cage with significant displacement of the left 7, 8, 9 ribs and Nondisplaced fractures involving the left 5, 6, 10, and 11th ribs. Patient is now intubated and ventilated will remain on the ventilator for the duration. In the face of serial rib fractures and underlying pulmonary contusion patient will require prolonged intubation and ventilation and will eventually either come off the ventilator or may require tracheostomy Patient has underlying severe pulmonary emphysema has been a lifetime smoker I discussed this at length with the family and patient is DO NOT RESUSCITATE 24 Hour Review/Hospital Course: 01/23/2018 Patient has been stable throughout the night Neurologically she is improved she is opening eyes and following simple commands apparently responding to her family but remains sedated in the face of ventilatory support Hemodynamically stable Bilateral breath sounds on assist control ventilation and good PO2 FiO2 gradient on 40% FiO2. Patient has serial rib fractures on the left side with pulmonary laceration and contusion and therefore is not ready of course to be extubated Chest tube no more leak The subcutaneous emphysema is gradually resolving and reabsorbing as expected Abdomen soft active bowel sounds Renal function is adequate however patient's urine output has been marginal in last 24 hours and she is gotten several boluses of fluids Random urine sodium is very high and indicative of renal wasting rather than prerenal insufficiency and volume contraction Fractional sodium excretion is more than 1 We will give some Lasix to help patient along now that she is volume loaded 01/24/2018 Patient spent an uneventful night This morning arterial blood gas reveals combined respiratory and metabolic acidosis unknown cause and origin Patient was given 2 amps of bicarb in additionally volume loaded although she is euvolemic at this time Respiratory parameters have been changed on the ventilator in order to allow to blow off hypercapnia It is quite unclear why patient developed this acid-base disbalance Remains a small dose fentanyl and propofol for mild sedation and pain control Hemodynamically patient is stable Cardiac echo reveals ejection fraction about 60% and no other abnormalities Bilateral breath sounds no more pneumothorax and the subcutaneous emphysema is slowly resolving Chest tube minimal drainage and no air leak Abdomen is soft hypoactive bowel sounds no rebound no guarding no masses CT of the abdomen does not show any abnormalities and lactic acid is 1.4 Renal function has been precarious and last 24 hours. Despite adequate volume loading patient's urine output remained low and at this point is finally catching up and increasing. Slight increase in BUN and creatinine will have nephrology look at the patient In summary well and not sure well patient developed metabolic acidosis this appears to be a anion gap acidosis and the offending agent is certainly not present The only thing obvious is the volume constriction and hypovolemia in the past but this is been corrected therefore will see how patient does At this point there are no obvious sources of sepsis or any clinical causes for hemodynamic instability 01/25/2018 Patient neurologically stable on sedation vacation opens eyes and follows commands intermittently Remains on decreasing doses of propofol Available next few days as far as pulmonary function is concerned but I want to make sure the patient is metabolically stabilized Hemodynamically stable Bilateral breath sounds good PO2 FiO2 gradient on 40% FiO2 with good pulmonary excursion and mechanics Metabolic alkalosis has resolved and was probably due to some volume constriction Abdomen soft will start on enteral diet Renal function improving and nephrology consult greatly appreciated DC bicarbonate drip and start patient on D5 half-normal saline in face of mild hypernatremia Continue care 01/26/2018 Patient is definitely improving Decrease sedation allows for patient to communicate She is very anxious on the respirator and fentanyl has been decreased to be substituted with p.o. Roxicet via NG tube Bilateral good breath sounds good PO2 FiO2 gradient and good pulmonary excursion Patient tolerating CPAP well and she will stay on CPAP during the day to be switched to rate at night She is not quite ready to extubate yet but will extubate most likely tomorrow 01/27/2018 Patient gradually improving and doing very well today Sedation removed Remains hemodynamically stable Bilateral good breath sounds tolerated CPAP very well and pulmonary mechanics have greatly improved Extubate patient today Out of bed Will do bedside swallow and perhaps start patient on diet Aggressive PT OT and patient to be out of bed We will remove chest tube tomorrow 01/27/2018 Patient last about a hour and a half of the extubation but started having difficulty breathing and became stridorous Received duo nebs followed by racemic epinephrine however despite all with patient is unable to maintain her airway and therefore she is reintubated Considering the patient is DNR this is been discussed with her daughter and explained that this is a bridging technique to patient improves At the time of intubation is noted patient's very swollen vocal cords which might have contributed to the problem to start with We will give patient small dose of steroids and perhaps be able to decrease the swelling of the vocal cords and allow for easier extubation next time around Objective Vital Signs / I&O: Vital Signs 01/26/18 18:00 01/26/18 20:00 01/26/18 21:00 Temperature 98.3 F Pulse Rate 82 73 Respiratory Rate 12 19 Blood Pressure 108/65 Pulse Oximetry 100 100 01/26/18 21:05 01/26/18 23:30 01/27/18 00:00 Temperature 98.1 F Pulse Rate 81 71 Respiratory Rate 17 10 L 10 L Blood Pressure 104/54 L Pulse Oximetry 95 98 01/27/18 03:15 01/27/18 03:17 01/27/18 04:00 Temperature 98.2 F Pulse Rate 78 98 H Respiratory Rate 11 L 10 L 21 Blood Pressure 124/60 Pulse Oximetry 100 100 01/27/18 08:00 01/27/18 09:06 01/27/18 12:00 Temperature 98.4 F 97.8 F Pulse Rate 90 95 H 97 H Respiratory Rate 32 H Blood Pressure 165/77 H 138/60 Pulse Oximetry 98 100 98 01/27/18 13:25 01/27/18 15:30 01/27/18 16:00 Temperature 98.1 F Pulse Rate 93 H Respiratory Rate 40 H 24 16 Blood Pressure 129/89 Pulse Oximetry 98 96 Intake & Output 01/26/18 01/27/18 01/27/18 18:59 06:59 18:59 Intake Total 1114 / 1114 1594 / 1594 Output Total 1530 / 1530 1555 / 1555 Balance -416 / -416 39 / 39 Weight 71.2 kg Intake: IV 250 / 250 fentaNYL 10 mcg/mL Premix Drip 250 / 250 2,500 mcg In 250 ml @ 50 MCG/HR 5 mls/hr IV.SIG TITRATE PRN Rx #:[id number] Oral 0 / 0 Tube Feeding 454 / 454 454 / 454 Tube Irrigant 30 / 30 Water Bolus Amount 660 / 660 660 / 660 Other 200 / 200 Output: Stool 0 / 0 Urine Amount (Catheter) 950 / 950 950 / 950 Indwelling Urethral Catheter 950 / 950 950 / 950 Gastric Drainage 580 / 580 580 / 580 Oral Orogastric Tube 580 / 580 580 / 580 Chest Tube Drainage #1 Left Pleural/Mediastinal Other: Date of Last Bowel Movement 01/26/18 01/26/18 01/26/18 # Bowel Movements 1 1 # Incontinent Bowel Movements 1 1 Result Diagrams: 01/27/18 02:59 01/27/18 08:35 Imaging: Impressions Chest X-Ray 01/27/18 06:00 CONCLUSION: No significant interval change. Extensive subcutaneous emphysema. No evidence of pneumothorax. Disinhibition Score: 14.00 Aggression Score: 14.00 Lability Score: 14.00 Agitated Behavior Total Score: 14
[2018-01-27] MEDS ORDERED: Propofol Inj 500 MG/50 ML Vial IV.PUSH ONE (18:00)
--- NOTE | 2018-01-27 19:22 | XR ---
EXAM DATE: 01/27/2018 6:32 PM EDT AGE/SEX: 87 years / Female INDICATIONS: ET tube placement. CLINICAL DATA: This is the patient's subsequent encounter. Patient reports that signs and symptoms h ave been present for 4 - 6 days and indicates a pain score of Nonresponsive. MEDICAL/SURGICAL HISTORY: . Chronic obstructive pulmonary disease. Left side pneumothorax. . C hest tube. COMPARISON: [facility] – [place], CHEST 1V SINGLE AP, 01/27/2018. . FINDINGS: ET tube tip 1.5 cm above the allen. Left chest drainage tube is stable in position medial left upper lung. There is a new partially consolidative opacity in the right lower lung causing loss of delinea tion of portions Extensive subcutaneous emphysema about the left and right chest extending to the sup raclavicular region, stable in severity. Stable right humeral fracture. The heart is normal in size. CONCLUSION: 1. ET tube tip is 1.5 cm above the allen and needs to be withdrawn 1 cm. 2. There is a new nonconsolidative lower lobe infiltrate. Electronically signed by: Jv Hinkle MD 01/27/2018 7:21 PM EDT
[2018-01-27] MEDS: Sod Chloride 0.9% Inj 1,000 ML IV.SIG SCH (20:15)
--- NOTE | 2018-01-27 20:35 | MP ---
cc: Jeet Borrero MD DATE OF OPERATION: 01/27/2018 PREOPERATIVE DIAGNOSES: Respiratory failure status post chest trauma, stridor post extubation. POSTOPERATIVE DIAGNOSES: Respiratory failure status post chest trauma, stridor post extubation, swelling of the vocal cords. PROCEDURE PERFORMED: Reintubation. SURGEON: Jeet Borrero MD ANESTHESIA: Propofol and rocuronium. ESTIMATED BLOOD LOSS: None. INDICATIONS FOR PROCEDURE: This lady was extubated about 2 hours ago successfully and did well for a while but then became stridorous. She was given respiratory treatments in addition to racemic epinephrine; however, remains labored and albeit, the patient will not last in this situation. Discussed with the daughter. DESCRIPTION OF PROCEDURE: The patient positioned. Vocal cords visualized with the GlideScope and a 7.5 mm endotracheal tube placed. Chest x-ray obtained. MD GUIDO Sanabria/jessica , 06:09 PM , 06:14 PM
[2018-01-27] MEDS: Morphine Sulfate Inj 2 MG/ML Vial IV.PUSH PRN (22:23)
--- NOTE | 2018-01-27 23:30 | XR ---
EXAM DATE: 01/27/2018 9:55 PM EDT AGE/SEX: 87 years / Female INDICATIONS: Right proximal humerus pain after fall. CLINICAL DATA: This is the patient's initial encounter. Patient reports that signs and symptoms have been present for 2 days and indicates a pain score of Nonresponsive. MEDICAL/SURGICAL HISTORY: Non-responsive. Non-responsive. COMPARISON: No prior exams available for comparison. FINDINGS: The shaft of the humerus appears grossly intact. There is soft tissue injury laterally in the proxima l arm with soft tissue gas along the deltoid margin and additional areas of soft tissue gas in the walker praclavicular region and in the right chest wall. CONCLUSION: No fracture seen in the shaft of the humerus. Incomplete evaluation of the surgical neck of the humer us. Recommend additional views of the right shoulder. Electronically signed by: Jv Hinkle MD 01/27/2018 11:28 PM EDT
--- NOTE | 2018-01-27 23:31 | XR ---
EXAM DATE: 01/27/2018 9:56 PM EDT AGE/SEX: 87 years / Female INDICATIONS: Lower back pain after fall. CLINICAL DATA: This is the patient's initial encounter. Patient reports that signs and symptoms have been present for 2 days and indicates a pain score of Nonresponsive. MEDICAL/SURGICAL HISTORY: Non-responsive. Non-responsive. COMPARISON: No prior exams available for comparison. FINDINGS: 2 lateral views of the lumbar spine are performed and demonstrates preservation of vertebral body hei ght of the lumbar vertebral bodies. There is grade 1 anterolisthesis at L4-5. Vascular calcification in aorta. CONCLUSION: Lateral view of the lumbar spine demonstrate grade 1 anterolisthesis at L4-5. No compression deformit ies seen. Electronically signed by: Jv Hinkle MD 01/27/2018 11:30 PM EDT
[2018-01-28] MEDS: Oral Hygiene Kit OROPHARYNG SCH ×5 (00:47→18:23)
[2018-01-28] MEDS: Metoprolol Tartrate 25 MG Tablet PO SCH ×4 (01:20→18:24)
[2018-01-28] MEDS: Morphine Sulfate Inj 2 MG/ML Vial IV.PUSH PRN ×2 (02:37→22:04)
[2018-01-28 04:15] LABS: Baso % (Auto) 0.3 % (0.0-2.0); Eos # (Auto) 0.1 th/mm3 (0.0-0.4); Eos % (Auto) 0.8 % (0.0-4.0); Hematocrit 26.9 % (35.0-46.0); Hemoglobin 8.8 gm/dL (11.6-15.3); Lymph # (Auto) 0.5 th/mm3 (1.0-4.8); Lymph % (Auto) 5.2 % (9.0-44.0); Mean Corpuscular HGB Conc 32.7 % (32.0-36.0); Mean Corpuscular Hemoglobin 28.2 pg (27.0-34.0); Mean Corpuscular Volume 86.2 fL (80.0-100.0); Mean Platelet Volume 9.1 fL (7.0-11.0); Mono # (Auto) 1.1 th/mm3 (0.0-0.9); Neut # (Auto) 8.6 th/mm3 (1.8-7.7); Neut % (Auto) 82.7 % (16.0-70.0); Platelet Count 249 th/mm3 (150-450); Red Blood Count 3.12 mil/mm3 (4.00-5.30); Red Cell Distribution Width 14.8 % (11.6-17.2); White Blood Count 10.4 th/mm3 (4.0-11.0)
[2018-01-28 04:36] LABS: Albumin 2.1 g/dL (3.4-5.0); Anion Gap 8 meq/L (5-15); Aspartate Aminotransferase 28 U/L (15-37); Blood Urea Nitrogen 21 mg/dL (7-18); Calcium 8.8 mg/dL (8.5-10.1); Carbon Dioxide 28.4 meq/L (21.0-32.0); Chloride 109 meq/L (98-107); Glomerular Filtration Rate 66 mL/min (>89); Glucose,Random 94 mg/dL (74-106); Potassium 3.8 meq/L (3.5-5.1); Sodium 145 meq/L (136-145)
[2018-01-28 04:37] LABS: Alanine Aminotransferase 36 U/L (10-53)
--- NOTE | 2018-01-28 04:38 | XR ---
EXAM DATE: 01/28/2018 4:14 AM EDT AGE/SEX: 87 years / Female INDICATIONS: Shortness of breath. CLINICAL DATA: This is the patient's subsequent encounter. Patient reports that signs and symptoms h ave been present for 1 week and indicates a pain score of Nonresponsive. MEDICAL/SURGICAL HISTORY: Chronic obstructive pulmonary disease. Left side pneumothorax. Chest tube, left. [place] [facility] [place]. . FINDINGS: Single AP view of the chest. Endotracheal tube remains in place with the tip 2.5 cm above the allen. Nasogastric tube is now in place with the tip below the [id number] of the radiograph. Left-sided chest tube remains in place. Extensive bilateral subcutaneous emphysema is again seen. No evidence of pneumothorax. Lungs are clear. CONCLUSION: 1. Extensive bilateral subcutaneous emphysema with no evidence of pneumothorax again seen. 2. Nasogastric tube with the tip below the [id number] of the radiograph. Electronically signed by: Sami Houston MD 01/28/2018 4:36 AM EDT
[2018-01-28 04:40] LABS: Alkaline Phosphatase 129 U/L (45-117); Total Protein 5.9 g/dL (6.4-8.2)
[2018-01-28] MEDS: Lidocaine 5% Patch T-DERMAL SCH ×2 (07:41→09:02)
[2018-01-28 08:51] LABS: ABG Base Excess 2.6 mmol/L (-2-2); ABG PCO2 35 mmHg (38-42); ABG PO2 194 mmHg (61-120)
[2018-01-28] MEDS: amLODIPine 5 MG Tablet PO SCH (09:01)
[2018-01-28] MEDS: Escitalopram 10 MG Tablet PO SCH (09:01)
[2018-01-28] MEDS: Enoxaparin Inj 30 MG/0.3 ML Syringe SQ SCH (09:02)
[2018-01-28] MEDS: Chlorhexidine 0.12% Oral Kit 15 ML UDC OROPHARYNG SCH ×2 (09:03→21:41)
[2018-01-28] MEDS ORDERED: Sodium Chloride 0.9% 2 ML Flush PRN IV.FLUSH (09:13)
--- NOTE | 2018-01-28 09:56 | XR ---
EXAM DATE: 01/28/2018 9:50 AM EDT AGE/SEX: 87 years / Female INDICATIONS: Follow up trauma, evaluate right shoulder and proximal humerus CLINICAL DATA: This is the patient's subsequent encounter. Patient reports that signs and symptoms h ave been present for 3 days and indicates a pain score of Nonresponsive. MEDICAL/SURGICAL HISTORY: . intubated Non-responsive. COMPARISON: No prior exams available for comparison. FINDINGS: Bony structures are intact and in normal alignment. Joints are intact without dislocation or signifi cant arthropathy. Osseous density is normal. Soft tissues demonstrate extensive subcutaneous air in the soft tissues. No radiopaque foreign bodies seen. CONCLUSION: No acute bony abnormality identified. Electronically signed by: Denis Pastor MD 01/28/2018 9:55 AM EDT
[2018-01-28] MEDS: Senna/Docusate Sodium 8.6/50 MG Tablet PO SCH ×2 (10:01→21:42)
[2018-01-28] MEDS: Propofol 1000 mg/100 ml Inj 1,000 MG/100 ML BOTTLE IV.CONT PRN ×2 (10:20→21:42)
[2018-01-28] MEDS: Sod Chloride 0.9% Inj 1,000 ML IV.SIG SCH ×2 (10:29→18:24)
[2018-01-28] MEDS: Pantoprazole Inj 40 MG Vial IV.PUSH SCH (14:50)
--- NOTE | 2018-01-28 15:32 | P.PNCC ---
Subjective Brief History: 88-year-old female fell at home from standing position when she tripped. Transferred to the emergency room awake and complaining of the pain on the left side of her chest. Patient transferred this priority 2 trauma alert and on arrival noted to have very extensive subcutaneous emphysema extending from the lower chest all the way to the neck and the face. Patient was resuscitated according trauma principles primary secondary survey resuscitation definitive care carried out and patient underwent full diagnostic and clinical workup Final diagnoses include Large left-sided pneumothorax. Extensive subcutaneous emphysema extending throughout the chest and upper abdomen bilaterally. Pneumomediastinum. Multiple acute fractures involving the left rib cage with significant displacement of the left 7, 8, 9 ribs and Nondisplaced fractures involving the left 5, 6, 10, and 11th ribs. Patient is now intubated and ventilated will remain on the ventilator for the duration. In the face of serial rib fractures and underlying pulmonary contusion patient will require prolonged intubation and ventilation and will eventually either come off the ventilator or may require tracheostomy Patient has underlying severe pulmonary emphysema has been a lifetime smoker I discussed this at length with the family and patient is DO NOT RESUSCITATE 24 Hour Review/Hospital Course: 01/23/2018 Patient has been stable throughout the night Neurologically she is improved she is opening eyes and following simple commands apparently responding to her family but remains sedated in the face of ventilatory support Hemodynamically stable Bilateral breath sounds on assist control ventilation and good PO2 FiO2 gradient on 40% FiO2. Patient has serial rib fractures on the left side with pulmonary laceration and contusion and therefore is not ready of course to be extubated Chest tube no more leak The subcutaneous emphysema is gradually resolving and reabsorbing as expected Abdomen soft active bowel sounds Renal function is adequate however patient's urine output has been marginal in last 24 hours and she is gotten several boluses of fluids Random urine sodium is very high and indicative of renal wasting rather than prerenal insufficiency and volume contraction Fractional sodium excretion is more than 1 We will give some Lasix to help patient along now that she is volume loaded 01/24/2018 Patient spent an uneventful night This morning arterial blood gas reveals combined respiratory and metabolic acidosis unknown cause and origin Patient was given 2 amps of bicarb in additionally volume loaded although she is euvolemic at this time Respiratory parameters have been changed on the ventilator in order to allow to blow off hypercapnia It is quite unclear why patient developed this acid-base disbalance Remains a small dose fentanyl and propofol for mild sedation and pain control Hemodynamically patient is stable Cardiac echo reveals ejection fraction about 60% and no other abnormalities Bilateral breath sounds no more pneumothorax and the subcutaneous emphysema is slowly resolving Chest tube minimal drainage and no air leak Abdomen is soft hypoactive bowel sounds no rebound no guarding no masses CT of the abdomen does not show any abnormalities and lactic acid is 1.4 Renal function has been precarious and last 24 hours. Despite adequate volume loading patient's urine output remained low and at this point is finally catching up and increasing. Slight increase in BUN and creatinine will have nephrology look at the patient In summary well and not sure well patient developed metabolic acidosis this appears to be a anion gap acidosis and the offending agent is certainly not present The only thing obvious is the volume constriction and hypovolemia in the past but this is been corrected therefore will see how patient does At this point there are no obvious sources of sepsis or any clinical causes for hemodynamic instability 01/25/2018 Patient neurologically stable on sedation vacation opens eyes and follows commands intermittently Remains on decreasing doses of propofol Available next few days as far as pulmonary function is concerned but I want to make sure the patient is metabolically stabilized Hemodynamically stable Bilateral breath sounds good PO2 FiO2 gradient on 40% FiO2 with good pulmonary excursion and mechanics Metabolic alkalosis has resolved and was probably due to some volume constriction Abdomen soft will start on enteral diet Renal function improving and nephrology consult greatly appreciated DC bicarbonate drip and start patient on D5 half-normal saline in face of mild hypernatremia Continue care 01/26/2018 Patient is definitely improving Decrease sedation allows for patient to communicate She is very anxious on the respirator and fentanyl has been decreased to be substituted with p.o. Roxicet via NG tube Bilateral good breath sounds good PO2 FiO2 gradient and good pulmonary excursion Patient tolerating CPAP well and she will stay on CPAP during the day to be switched to rate at night She is not quite ready to extubate yet but will extubate most likely tomorrow 01/27/2018 Patient gradually improving and doing very well today Sedation removed Remains hemodynamically stable Bilateral good breath sounds tolerated CPAP very well and pulmonary mechanics have greatly improved Extubate patient today Out of bed Will do bedside swallow and perhaps start patient on diet Aggressive PT OT and patient to be out of bed We will remove chest tube tomorrow 01/27/2018 Patient last about a hour and a half of the extubation but started having difficulty breathing and became stridorous Received duo nebs followed by racemic epinephrine however despite all with patient is unable to maintain her airway and therefore she is reintubated Considering the patient is DNR this is been discussed with her daughter and explained that this is a bridging technique to patient improves At the time of intubation is noted patient's very swollen vocal cords which might have contributed to the problem to start with We will give patient small dose of steroids and perhaps be able to decrease the swelling of the vocal cords and allow for easier extubation next time around 01/28 Failed extubation yesterday Patient is awake-although not agitated certainly discomfort secondary to the ET tube Chest x-ray is unchanged Patient had stridor after the extubation-given this fact we will start him start her on low-dose steroids for 2 days Patient is DNR we will discussed with the family options of extubation-after some more optimization of the patient Resume tube feeds Objective Vital Signs / I&O: Vital Signs 01/27/18 15:30 01/27/18 15:35 01/27/18 16:00 Temperature 98.1 F Pulse Rate 93 H 98 H Respiratory Rate 24 24 16 Blood Pressure 129/89 Pulse Oximetry 96 01/27/18 20:00 01/27/18 20:17 01/28/18 00:00 Temperature 98.2 F 98.5 F Pulse Rate 74 91 H 76 Respiratory Rate 27 H 17 22 Blood Pressure 183/74 H 129/61 Pulse Oximetry 95 96 100 01/28/18 00:05 01/28/18 04:00 01/28/18 04:35 Temperature 98.6 F Pulse Rate 84 Respiratory Rate 12 21 23 Blood Pressure 156/71 H Pulse Oximetry 100 98 99 01/28/18 08:00 01/28/18 09:29 01/28/18 12:00 Temperature 99.7 F H Pulse Rate 86 Respiratory Rate 12 22 10 L Blood Pressure 162/76 H Pulse Oximetry 100 99 97 Intake & Output 01/27/18 01/28/18 01/28/18 18:59 06:59 18:59 Intake Total 350 / 350 1450 / 1450 Output Total 400 / 400 430 / 430 Balance -400 / -400 -80 / -80 1450 / 1450 Weight 70.5 kg Intake: IV 350 / 350 1450 / 1450 Ofirmev Inj 1,000 mg In 100 ml 100 / 100 @ 400 mls/hr IV.SIG Q6H PRN Rx# :[id number] NS Inj 1,000 ML @ 50 mls/hr IV. 1000 / 1000 SIG .Q20H BENNETT Rx#:[id number] Output: Urine Amount (Catheter) 350 / 350 400 / 400 Indwelling Urethral Catheter 350 / 350 400 / 400 Chest Tube Drainage 50 / 50 30 / 30 Left 50 / 50 30 / 30 Other: Date of Last Bowel Movement 01/26/18 01/28/18 01/28/18 # Bowel Movements 1 Result Diagrams: 01/28/18 03:13 01/28/18 03:13 Imaging: Impressions Chest X-Ray 01/27/18 00:00 CONCLUSION: 1. ET tube tip is 1.5 cm above the allen and needs to be withdrawn 1 cm. 2. There is a new nonconsolidative lower lobe infiltrate. Humerus X-Ray 01/27/18 00:00 CONCLUSION: No fracture seen in the shaft of the humerus. Incomplete evaluation of the surgical neck of the humerus. Recommend additional views of the right shoulder. Lumbar Spine X-Ray 01/27/18 00:00 CONCLUSION: Lateral view of the lumbar spine demonstrate grade 1 anterolisthesis at L4-5. No compression deformities seen. Shoulder X-Ray 01/28/18 00:00 CONCLUSION: No acute bony abnormality identified. Chest X-Ray 01/28/18 06:00 CONCLUSION: 1. Extensive bilateral subcutaneous emphysema with no evidence of pneumothorax again seen. 2. Nasogastric tube with the tip below the [id number] of the radiograph. 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
[2018-01-28] MEDS: Sodium Chloride 0.9% 2 ML Flush BID IV.FLUSH SCH (22:53)
[2018-01-29] MEDS: Oral Hygiene Kit OROPHARYNG SCH ×4 (00:05→17:03)
[2018-01-29] MEDS: Metoprolol Tartrate 25 MG Tablet PO SCH ×4 (01:15→18:26)
[2018-01-29] MEDS: Sod Chloride 0.9% Inj 1,000 ML IV.SIG SCH ×2 (05:19→12:35)
[2018-01-29 05:25] LABS: Baso % (Auto) 0.2 % (0.0-2.0); Eos % (Auto) 0.1 % (0.0-4.0); Hematocrit 24.9 % (35.0-46.0); Hemoglobin 8.3 gm/dL (11.6-15.3); Lymph # (Auto) 0.5 th/mm3 (1.0-4.8); Lymph % (Auto) 4.6 % (9.0-44.0); Mean Corpuscular HGB Conc 33.3 % (32.0-36.0); Mean Corpuscular Hemoglobin 28.6 pg (27.0-34.0); Mean Corpuscular Volume 85.9 fL (80.0-100.0); Mean Platelet Volume 9.5 fL (7.0-11.0); Mono # (Auto) 0.6 th/mm3 (0.0-0.9); Mono % (Auto) 6.4 % (0.0-8.0); Neut # (Auto) 8.8 th/mm3 (1.8-7.7); Neut % (Auto) 88.7 % (16.0-70.0); Platelet Count 262 th/mm3 (150-450); Red Blood Count 2.89 mil/mm3 (4.00-5.30); Red Cell Distribution Width 15.3 % (11.6-17.2); White Blood Count 9.9 th/mm3 (4.0-11.0)
--- NOTE | 2018-01-29 05:41 | XR ---
EXAM DATE: 01/29/2018 6:00 AM EDT AGE/SEX: 87 years / Female INDICATIONS: Shortness of breath. CLINICAL DATA: This is the patient's subsequent encounter. Patient reports that signs and symptoms h ave been present for 1 week and indicates a pain score of Nonresponsive. MEDICAL/SURGICAL HISTORY: . Chronic obstructive pulmonary disease. Left side pneumothorax. . C hest tube, left. COMPARISON: [facility] [place], CHEST 1V SINGLE AP, 01/28/2018. . FINDINGS: Single AP view the chest. Endotracheal tube and nasogastric tube remain in place. Left-sided chest tu be is also again seen. Extensive bilateral subcutaneous emphysema again seen. No evidence of pneumoth orax. Mild patchy bilateral lower lung zone opacity. CONCLUSION: 1. Mild patchy bilateral lower lung atelectasis. 2. Extensive bilateral subcutaneous emphysema. No evidence of pneumothorax. Electronically signed by: Sami Houston MD 01/29/2018 5:40 AM EDT
[2018-01-29 05:54] LABS: Anion Gap 6 meq/L (5-15); Aspartate Aminotransferase 26 U/L (15-37); Blood Urea Nitrogen 26 mg/dL (7-18); Calcium 8.2 mg/dL (8.5-10.1); Chloride 110 meq/L (98-107); Glomerular Filtration Rate 71 mL/min (>89); Glucose,Random 162 mg/dL (74-106); Potassium 3.8 meq/L (3.5-5.1); Sodium 145 meq/L (136-145)
[2018-01-29 05:55] LABS: ABG Base Excess 3.4 mmol/L (-2-2); ABG PCO2 52 mmHg (38-42); ABG PO2 90 mmHg (61-120)
[2018-01-29 05:55] LABS: Alanine Aminotransferase 39 U/L (10-53)
[2018-01-29 05:57] LABS: Alkaline Phosphatase 134 U/L (45-117); Total Protein 5.8 g/dL (6.4-8.2)
[2018-01-29] MEDS: Chlorhexidine 0.12% Oral Kit 15 ML UDC OROPHARYNG SCH ×2 (09:30→20:37)
[2018-01-29] MEDS: Enoxaparin Inj 30 MG/0.3 ML Syringe SQ SCH (09:31)
[2018-01-29] MEDS: Lidocaine 5% Patch T-DERMAL SCH (09:31)
[2018-01-29] MEDS: Escitalopram 10 MG Tablet PO SCH (09:32)
[2018-01-29] MEDS: Senna/Docusate Sodium 8.6/50 MG Tablet PO SCH ×2 (09:33→20:36)
[2018-01-29] MEDS: amLODIPine 5 MG Tablet PO SCH (09:33)
[2018-01-29] MEDS: Sodium Chloride 0.9% 2 ML Flush BID IV.FLUSH SCH ×2 (09:34→20:36)
[2018-01-29] MEDS: Propofol 1000 mg/100 ml Inj 1,000 MG/100 ML BOTTLE IV.CONT PRN (10:10)
[2018-01-29] MEDS: Pantoprazole Inj 40 MG Vial IV.PUSH SCH (13:45)
--- NOTE | 2018-01-29 14:00 | P.CONPAL ---
Consult Service: Palliative Care Requesting Physician: Anastacia Baptiste Reason for Consult: a. To assist with evaluation and management of symptoms including: dyspnea, pain b. To assist medical decision maker(s) with: better understanding of current medical conditions; weighing benefits/burdens of medical treatment options; making medical treatment decisions. Primary Care Provider: UNKNOWN History of Present Illness History of Present Illness: This is an 87 y/o female with hx COPD and life time smoking history who presented 01/22 as a trauma alert after falling at home. Pt was awake and alert when paramedics arrived and she subsequently developed LUE swelling that extended to neck, chest, and RUE. She intubated emergently. CXR showed extensive subq emphysema throughout chest wall, rib fractures. CT abd/pelvis & chest showed left lung base pneumothorax and subq emphysema throughout chest and abd bilaterally, pneumomediastinum, rib fx. per CCM she did sustain lung contusion and laceration. She was extubated 01/27 and after a short time developed difficulty breathing and stridor and was reintubated. On reintubation it was noted that her vocal cords were swollen. SHe was given steroids. CXR 01/27 showed new nonconsolidative lower lobe infiltrate right lung. Pt seen in room, family at bedside. She does open her eyes. Sedated on vent. Does not appear to be in pain or be anxious. Breath sounds are coarse and she has palpable subq emphysema on chest. Function/Cognitive Trajectory: Pt was independent with ADLs prior, family noted no cognitive deficits. Review of Systems unobtainable due to endotracheal tube (obtained to best of my ability from chart review ) Constitutional: Denies fever(s) Eyes: Denies blind spots Ears, Nose, Mouth, and Throat: Denies abnormal hearing Cardiovascular: Denies chest pain Respiratory: Reports cough, Reports excessive phlegm production, Reports pain on inspiration Gastrointestinal: Denies abdominal pain Skin/Breast: Denies bleeding lesions Neurologic: Denies confusion Psychiatric: Denies depression [facility] - History History Provided By: Family Member - Medical History Medical History: Medical History (Last Updated 01/29/18 @ 15:40 by TERENCE Boyer) COPD (chronic obstructive pulmonary disease) - Family History Family History: Family History (Last Updated 01/29/18 @ 15:40 by TERENCE Boyer) Other COPD (chronic obstructive pulmonary disease) Lung cancer Tobacco use - Social History I have reviewed the patient's Social History: Yes - Tobacco History Second Hand Smoke Exposure: Yes Smoking Status: Former smoker Tobacco Type: Cigarettes - Alcohol History How Often Do You Have a Drink Containing Alcohol: 2 to 4 times a month - Substance Use History Substance History: No History of Abuse Medications and Allergies Active Medications: Active Medications Acetaminophen (Tylenol Liq) 650 mg PO Q4H PRN PRN Reason: FEVER > 101 F Al Hydroxide/Mg Hydroxide (Milk Of Magnesia Liq) 30 ml PO BID [facility] Last Admin: 01/29/18 09:34 Dose: Not Given Albuterol (Duoneb Neb (Prn)) 1 ampul NEB Q2HR NEB PRN PRN Reason: SHORTNESS OF BREATH Last Admin: 01/27/18 20:17 Dose: 1 ampul Albuterol (Duoneb Neb (Alfonso)) 1 ampul NEB Q6HR NEB [facility] Last Admin: 01/29/18 09:22 Dose: 1 ampul Amlodipine Besylate (Norvasc) 5 mg PO DAILY [facility] Last Admin: 01/29/18 09:33 Dose: 5 mg Chlorhexidine Gluconate (Peridex 0.12% Oral Kit) 15 ml OROPHARYNG BID@0800, 2000 [facility] Last Admin: 01/29/18 09:30 Dose: 15 ml Cyclobenzaprine HCl (Flexeril) 5 mg PO Q8HR [facility] Last Admin: 01/29/18 05:59 Dose: 5 mg Dexamethasone Sodium Phosphate (Decadron Inj) 4 mg IV.PUSH DAILY [facility] Stop: 01/30/18 23:00 Last Admin: 01/29/18 09:31 Dose: 4 mg Enalaprilat (Vasotec Inj) 1.25 mg IV.PUSH Q8H PRN PRN Reason: Blood pressure 180/95 Last Admin: 01/26/18 05:50 Dose: 1.25 mg Enoxaparin Sodium (Lovenox Inj) 30 mg SQ DAILY [facility] Last Admin: 01/29/18 09:31 Dose: 30 mg Escitalopram Oxalate (Lexapro) 5 mg PO DAILY [facility] Last Admin: 01/29/18 09:32 Dose: 5 mg Hydroxyzine HCl (Atarax) 25 mg PO DAILY [facility] Last Admin: 01/29/18 09:32 Dose: 25 mg Magnesium Sulfate 4 gm/ Sodium (Chloride) 100 mls @ 50 mls/hr IV.SIG UNSCH PRN PRN Reason: For Magnesium 0.9 - 1.1 mg/dL Magnesium Sulfate 2 gm/ Sodium (Chloride) 100 mls @ 50 mls/hr IV.SIG UNSCH PRN PRN Reason: For Magnesium 1.2 - 1.6 mg/dL Potassium Chloride (Kcl 40 Meq Premix Inj) 40 meq in 100 mls @ 25 mls/hr IV.SIG Q2H PRN PRN Reason: For Potassium 2.8 - 3.2 mEq/L Last Infusion: 01/24/18 14:30 Dose: Infused Potassium Chloride (Kcl 20 Meq Premix Inj) 20 meq in 100 mls @ 50 mls/hr IV.SIG Q2H PRN PRN Reason: For Potassium 3.3 - 3.5 mEq/L Last Infusion: 01/25/18 14:40 Dose: Infused Potassium Chloride (Kcl 40 Meq Premix Inj) 40 meq in 100 mls @ 25 mls/hr IV.SIG UNSCH PRN PRN Reason: For Potassium 3.3 - 3.5 mEq/L Potassium Chloride (Kcl 20 Meq Premix Inj) 20 meq in 100 mls @ 50 mls/hr IV.SIG Q2H PRN PRN Reason: For Potassium 2.8 - 3.2 mEq/L Last Infusion: 01/25/18 19:36 Dose: Infused Potassium Phosphate 30 mmol/ (Sodium Chloride) 260 mls @ 42 mls/hr IV.SIG UNSCH PRN PRN Reason: SEE LABEL COMMENTS Sodium Phosphate 30 mmol/ (Sodium Chloride) 260 mls @ 42 mls/hr IV.SIG UNSCH PRN PRN Reason: For Phosphorus < 2.5 mg/dL Sodium Chloride (Ns Inj) 1,000 mls @ 50 mls/hr IV.SIG .Q20H [facility] Last Admin: 01/29/18 12:35 Dose: Not Given Propofol (Diprivan 1000 Mg/100 Ml Inj) 1,000 mg in 100 mls @ 2.115 mls/hr IV.CONT TITRATE PRN; Protocol PRN Reason: Per Protocol Last Admin: 01/29/18 10:10 Dose: 20 mcg/kg/min, 8.46 mls/hr Lactulose (Lactulose Liq) 30 ml PO DAILY [facility] Last Admin: 01/29/18 09:31 Dose: 30 ml Lidocaine HCl (Lidoderm 5% Patch.12 Hr) 1 patch T-DERMAL DAILY [facility] Last Admin: 01/29/18 09:31 Dose: 1 patch Magnesium Oxide (Mag-Ox) 800 mg PO UNSCH PRN PRN Reason: For Magnesium 1.2 - 1.6 mg/dL Metoprolol Tartrate (Lopressor) 12.5 mg PO Q8H [facility] Last Admin: 01/29/18 11:22 Dose: Not Given Miscellaneous (Pill Splitter) 1 each OTHER UNSCH [facility] Miscellaneous Medication () 1 each OROPHARYNG 0000,0400,1200,1600 [facility] Last Admin: 01/29/18 12:35 Dose: 1 each Morphine Sulfate (Morphine Inj) 2 mg IV.PUSH Q3H PRN PRN Reason: BREAKTHROUGH PAIN Last Admin: 01/28/18 22:04 Dose: 2 mg Ondansetron HCl (Zofran Inj) 4 mg IV.PUSH Q6H PRN PRN Reason: NAUSEA OR VOMITING Oxycodone HCl (Roxicodone) 5 mg PO Q6H PRN PRN Reason: pain > 3 Last Admin: 01/29/18 09:50 Dose: 5 mg Pantoprazole Sodium (Protonix Inj) 40 mg IV.PUSH Q24H [facility] Last Admin: 01/28/18 14:50 Dose: 40 mg Patch Removal (Remove Old Patch) 1 each T-DERMAL HS [facility] Last Admin: 01/28/18 22:53 Dose: 1 each Potassium Bicarb/Potassium Chloride (K-Lyte Cl Eff) 50 meq PO UNSCH PRN PRN Reason: For Potassium 3.3 - 3.5 mEq/L Last Admin: 01/26/18 03:12 Dose: 50 meq Potassium Phosphate (K-Phos Original) 2,000 mg PO Q4H PRN PRN Reason: Phosphorus Less Than 2.5 mg/dL Last Admin: 01/26/18 15:11 Dose: 2,000 mg Potassium Phosphate (K-Phos Original) 2,000 mg PO UNSCH PRN PRN Reason: SEE LABEL COMMENTS Senna/Docusate Sodium (Kamryn-Colace) 1 tab PO BID [facility] Last Admin: 01/29/18 09:33 Dose: 1 tab Sodium Chloride (Ns Flush) 2 ml IV.FLUSH BID [facility] Last Admin: 01/29/18 09:34 Dose: 2 ml Sodium Chloride (Ns Flush) 2 ml IV.FLUSH PRN PRN PRN Reason: FLUSH AFTER USING IV ACCESS Sterile Water (Free Water) 200 ml NG/OG Q6HR [facility] Last Admin: 01/29/18 12:35 Dose: 200 ml Allergies Allergy/AdvReac Type Severity Reaction Status Date / Time Penicillins AdvReac Severe Anaphylaxis Verified 01/23/18 06:39 Home Medications Medication Instructions Recorded Confirmed Type albuterol sulfate 1 puff INHALATION Q4-6H PRN MDD 01/22/18 01/22/18 History 10mg escitalopram oxalate 5 mg PO DAILY 01/22/18 01/22/18 History hydroxyzine HCl 25 mg PO DAILY MDD 10mg 01/22/18 01/26/18 History zolpidem [Ambien] PRN 01/22/18 History Advance Directives Power of Blindstitch Lapel Padder: Yes (daughter to provide documentation) Family/friends goals: comfort Ethical and Legal Issues: Pt is not capacitated to make decisions. It is not clear if she will regain that capacity. Daughter to provide documentation of POA. In the absence of a designated surrogate, Per [place] statutes proxy decisionmaking falls to majority of patient's 3 adult children. Physical Exam Vital Signs: Vital Signs - 24 hr 01/28/18 16:00 01/28/18 16:43 01/28/18 20:00 Temperature 98.4 F 98.7 F Pulse Rate 74 94 H Respiratory Rate 7 L 12 12 Blood Pressure 143/64 H 131/61 Pulse Oximetry 100 99 01/28/18 20:55 01/29/18 00:00 01/29/18 00:31 Temperature 98.7 F Pulse Rate 78 Respiratory Rate 21 15 17 Blood Pressure 140/61 Pulse Oximetry 100 99 97 01/29/18 03:31 01/29/18 04:00 01/29/18 08:32 Temperature 98.4 F Pulse Rate 67 Respiratory Rate 14 14 14 Blood Pressure 135/61 Pulse Oximetry 97 99 98 01/29/18 09:21 01/29/18 12:20 Temperature Pulse Rate 71 Respiratory Rate 21 21 Blood Pressure Pulse Oximetry 98 I&O: Intake & Output 01/27/18 01/28/18 01/29/18 01/30/18 06:59 06:59 06:59 06:59 Intake Total 2708 / 2708 350 / 350 3790 / 3790 100 / 100 Output Total 3085 / 3085 830 / 830 770 / 770 Balance -377 / -377 -480 / -480 3020 / 3020 100 / 100 Weight 71.2 kg 70.5 kg 72.3 kg Physical Exam: CONSTITUTIONAL/GENERAL: adequately nourished woman, intubated on vent TUBES/LINES/DRAINS: OETT, purvis, NGT, chest tube SKIN: No jaundice, rashes, or lesions. Skin temperature appropriate. Not diaphoretic. + subq emphysema chest HEAD: Atraumatic. Normocephalic. EYES: PERRL. Extraocular motions intact. No scleral icterus. No injection or drainage. Fundi not examined. ENT: unable to assess hearing, pt sedated on vent. Nose without bleeding or purulent drainage. Throat exam hindered by presence OETT NECK: Trachea midline. Supple CARDIOVASCULAR: RRR without murmurs, gallops, or rubs. No JVD. Peripheral pulses symmetric. RESPIRATORY/CHEST: Symmetric, unlabored respirations. coarse lung sounds, crackles GASTROINTESTINAL: Abdomen soft, nondistended. No hepato-splenomegaly, or palpable masses. No guarding. Bowel sounds present. GENITOURINARY: Without palpable bladder distension. Purvis catheter in place. MUSCULOSKELETAL: Extremities without clubbing, cyanosis, or edema. No mottling or clubbing. NEUROLOGICAL: sedated on vent. opens eyes. PSYCHIATRIC: unable to assess, sedated on vent Diagnostic Tests Laboratory: Laboratory Results - last 72 hr 01/27/18 01/27/18 01/27/18 02:59 06:01 08:35 WBC 10.2 RBC 3.29 L Hgb 9.2 L Hct 28.4 L MCV 86.4 MCH 27.9 MCHC 32.3 RDW 14.9 Plt Count 252 MPV 9.3 Neut % (Auto) 78.6 H Lymph % (Auto) 10.1 [place] % (Auto) 8.9 H Eos % (Auto) 2.0 Baso % (Auto) 0.4 Neut # (Auto) 8.0 H Lymph # (Auto) 1.0 [place] # (Auto) 0.9 Eos # (Auto) 0.2 Baso # (Auto) 0.0 WBC Differential . Differential Comment Auto diff final Puncture Site Left radial Patient Temperature 98.6 O2 Saturation 98 ABG pH 7.38 ABG pCO2 46 H ABG pO2 215 H ABG HCO3 27 H ABG O2 Content 13.6 ABG Base Excess 2.0 ABG Methemoglobin 0.9 Enzo Test Present Hemoglobin 9.6 L Carboxyhemoglobin 1.1 O2 Delivery Device Ventilator Vent Setting See comment Inspired O2 55 Critical Value No Sodium 143 Potassium 3.8 Chloride 108 H Carbon Dioxide 28.7 Anion Gap 6 BUN 20 H Creatinine 0.99 Estimated GFR 53 L Random Glucose 130 H Calcium 8.7 Phosphorus 3.2 D Total Bilirubin 0.4 AST 28 ALT 40 Alkaline Phosphatase 145 H Total Protein 6.0 L Albumin 2.3 L 01/28/18 01/28/18 01/28/18 03:13 03:13 08:39 WBC 10.4 RBC 3.12 L Hgb 8.8 L Hct 26.9 L MCV 86.2 MCH 28.2 MCHC 32.7 RDW 14.8 Plt Count 249 MPV 9.1 Neut % (Auto) 82.7 H Lymph % (Auto) 5.2 L [place] % (Auto) 11.0 H Eos % (Auto) 0.8 Baso % (Auto) 0.3 Neut # (Auto) 8.6 H Lymph # (Auto) 0.5 L [place] # (Auto) 1.1 H Eos # (Auto) 0.1 Baso # (Auto) 0.0 WBC Differential . Differential Comment Auto diff final Puncture Site Right radial Patient Temperature 98.6 O2 Saturation 98 ABG pH 7.49 H ABG pCO2 35 L ABG pO2 194 H ABG HCO3 26 ABG O2 Content 13.8 ABG Base Excess 2.6 H ABG Methemoglobin 1.0 Enzo Test Present Hemoglobin 9.7 L Carboxyhemoglobin 1.1 O2 Delivery Device Vent Vent Setting Prvc/12/450/1.0/+5 Inspired O2 50 Critical Value No Sodium 145 Potassium 3.8 Chloride 109 H Carbon Dioxide 28.4 Anion Gap 8 BUN 21 H Creatinine 0.82 Estimated GFR 66 L Random Glucose 94 Calcium 8.8 Phosphorus Total Bilirubin 0.5 AST 28 ALT 36 Alkaline Phosphatase 129 H Total Protein 5.9 L Albumin 2.1 L 01/29/18 01/29/18 01/29/18 04:17 04:17 05:34 WBC 9.9 RBC 2.89 L Hgb 8.3 L Hct 24.9 L MCV 85.9 MCH 28.6 MCHC 33.3 RDW 15.3 Plt Count 262 MPV 9.5 Neut % (Auto) 88.7 H Lymph % (Auto) 4.6 L [place] % (Auto) 6.4 Eos % (Auto) 0.1 Baso % (Auto) 0.2 Neut # (Auto) 8.8 H Lymph # (Auto) 0.5 L [place] # (Auto) 0.6 Eos # (Auto) 0.0 Baso # (Auto) 0.0 WBC Differential . Differential Comment Auto diff final Puncture Site Right radial Patient Temperature 98.6 O2 Saturation 95 ABG pH 7.36 L ABG pCO2 52 H* ABG pO2 90 ABG HCO3 28 H ABG O2 Content 11.8 L ABG Base Excess 3.4 H ABG Methemoglobin 0.7 Enzo Test Present Hemoglobin 8.7 L Carboxyhemoglobin 1.1 O2 Delivery Device Ventilator Vent Setting Prvc/ac Inspired O2 45 Critical Value Yes Sodium 145 Potassium 3.8 Chloride 110 H Carbon Dioxide 29.0 Anion Gap 6 BUN 26 H Creatinine 0.77 Estimated GFR 71 L Random Glucose 162 H Calcium 8.2 L Phosphorus Total Bilirubin 0.3 AST 26 ALT 39 Alkaline Phosphatase 134 H Total Protein 5.8 L Albumin 2.0 L Result Diagrams: 01/29/18 04:17 01/29/18 04:17 Imaging: ITS Impressions Pelvis X-Ray 01/22/18 12:13 CONCLUSION: Negative examination. Chest CT 01/22/18 12:33 CONCLUSION: 1. Large left-sided pneumothorax. 2. Extensive subcutaneous emphysema extending throughout the chest and upper abdomen bilaterally. 3. Pneumomediastinum. 4. Multiple acute fractures involving the left rib cage with significant displacement of the left seventh eighth and ninth ribs and nondisplaced fractures involving the left fifth, 6, 10, and 11th ribs. 5. Scattered emphysematous changes bilaterally. 6. Coronary artery calcification. 7. Mild diffuse decreased attenuation liver suggesting possible fatty infiltration. Head CT 01/22/18 12:33 CONCLUSION: 1. Negative CT Head non contrast. Extensive air in the subcutaneous tissues . Abdomen/Pelvis CT 01/24/18 00:00 CONCLUSION: 1. Progression of the extensive subcutis emphysema. 2. Left chest tube in good position 3. Small amount of fluid about the tip of the liver 4. Multiple rib fractures Humerus X-Ray 01/27/18 00:00 CONCLUSION: No fracture seen in the shaft of the humerus. Incomplete evaluation of the surgical neck of the humerus. Recommend additional views of the right shoulder. Lumbar Spine X-Ray 01/27/18 00:00 CONCLUSION: Lateral view of the lumbar spine demonstrate grade 1 anterolisthesis at L4-5. No compression deformities seen. Shoulder X-Ray 01/28/18 00:00 CONCLUSION: No acute bony abnormality identified. Chest X-Ray 01/29/18 06:00 CONCLUSION: 1. Mild patchy bilateral lower lung atelectasis. 2. Extensive bilateral subcutaneous emphysema. No evidence of pneumothorax. Procedures: 01/22 intubated 01/27 extubated, reintubated Patient/Family Conference Present at Family Conference: 2 of pt's 3 adult living children Family Conference Location: Consult Room Issues Discussed: * Palliative care role, purpose, approach * Additional medical, psychosocial, and spiritual history * Patients general health, functional status, and cognitive changes in the months leading up to the current hospitalization * family understanding of the current medical problems * family understanding of prognosis * Patients goals of care as best understood from conversations and values - pt was clear with her family about her wishes that she would not want to be kept alive on life support, quality of life was important to her; ;they are adamant that she would not want a tracheostomy * Current medical treatment options and benefits/burdens of those options * Likely scenarios comparing ongoing aggressive care with a transition to comfort measures only * introduced hospice * anticipatory guidance on compassionate withdrawal provided * code status - no code/DNR * decison maker - daughter says she is POA but not clear if this includes HCS; she will bring paperwork- in absence of designated surrogate, 2 of 3 children are decision makers and are present for this meeting * Questions answered to the best of my ability * Palliative care contact information provided Goals are comfort oriented. Family is willing to wait 1-2 days to see if medical extubation possible. If there is not improvement they would want to proceed with compassionate extubation and comfort care. They adamantly refuse tracheostomy. They request palliative follow up 01/30. Assessment and Plan - Disease Oriented Problem List (1) Pneumothorax on left (2) Multiple rib fractures (3) Subcutaneous emphysema due to trauma (4) Acute kidney injury - Symptom Scale (1) Dyspnea 0-10 Scale: Unable to quantify (2) Pain 0-10 Scale: Unable to quantify Pertinent Non-Medical Issues: Psychosocial: Originally from [place]. 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 Had 4 children- 3 boys 1 girl. 1 son is . Spiritual: no preferences, not important to pt Legal: Pt is not capacitated to make decisions. It is not clear if she will regain that capacity. Daughter to provide documentation of POA. In the absence of a designated surrogate, Per [place] statutes proxy decisionmaking falls to majority of patient's 3 adult children. Family appears to be working together. Ethical issues impacting care: none Important Contacts: Daughter Marilee [phone] Prognosis: 87 y/o female lifelong smoker with COPD who presented 01/22 as trauma alert after fall at home. Sustained fracture ribs, large pneumothorax, sq emphysema, pneumomediastium, pulmonary laceration and contusion. She was extubated and summarily reintubated. Given her underlying COPD, rib fractures and lung injuries, there is a high likelihood she could remain on the ventilator for a long time. Her prognosis is poor. Code Status: No Code DNR Plan: - LEGAL DECISION MAKER - Pt is not capacitated to make decisions. It is not clear if she will regain that capacity. Daughter to provide documentation of POA. In the absence of a designated surrogate, [place] statutes proxy decisionmaking falls to majority of patient's 3 adult children. Family appears to be working together. - CODE STATUS- no code/DNR - GOALS - Goals are comfort oriented. Family is willing to wait 1-2 days to see if medical extubation possible. If there is not improvement they would want to proceed with compassionate extubation and comfort care. They adamantly refuse tracheostomy. They request palliative follow up 01/30. - SYMPTOMS - * dyspnea - life long smoker, COPD, suffered lung laceration, rib fx, pneumothorax. now intubated on vent, extubated and then reintubated same day.fiO2 45%, sat 98%. has PRN and scheduled duonebs, scheduled decadron, * anxiety - multifactorial, in part likely r/t dyspnea. appears comfortable. has hydroxyzine, lexapro, on propofol gtt 20mcg * pain - 2/2 rib fx, tubes & lines. appears comfortable. has IV morphine PRN 2mg q3h last had yesterday, roxicodone 5mg q6h PRN, last had this morning 0950. no further recs at this time. - d/w Dr. Huang - Palliative care will continue to follow during hospital course as condition evolves, to assist patient/decision-maker with understanding of medical conditions, weighing benefits/burdens of treatment options, for clarification of goals of treatment. Additionally will assist with any symptoms of palliative concern Appreciation Thank you for the opportunity to participate in the care of Dara Hodge.
--- NOTE | 2018-01-29 14:26 | P.PNCC ---
Subjective Brief History: 88-year-old female fell at home from standing position when she tripped. Transferred to the emergency room awake and complaining of the pain on the left side of her chest. Patient transferred this priority 2 trauma alert and on arrival noted to have very extensive subcutaneous emphysema extending from the lower chest all the way to the neck and the face. Patient was resuscitated according trauma principles primary secondary survey resuscitation definitive care carried out and patient underwent full diagnostic and clinical workup Final diagnoses include Large left-sided pneumothorax. Extensive subcutaneous emphysema extending throughout the chest and upper abdomen bilaterally. Pneumomediastinum. Multiple acute fractures involving the left rib cage with significant displacement of the left 7, 8, 9 ribs and Nondisplaced fractures involving the left 5, 6, 10, and 11th ribs. Patient is now intubated and ventilated will remain on the ventilator for the duration. In the face of serial rib fractures and underlying pulmonary contusion patient will require prolonged intubation and ventilation and will eventually either come off the ventilator or may require tracheostomy Patient has underlying severe pulmonary emphysema has been a lifetime smoker I discussed this at length with the family and patient is DO NOT RESUSCITATE 24 Hour Review/Hospital Course: 01/23/2018 Patient has been stable throughout the night Neurologically she is improved she is opening eyes and following simple commands apparently responding to her family but remains sedated in the face of ventilatory support Hemodynamically stable Bilateral breath sounds on assist control ventilation and good PO2 FiO2 gradient on 40% FiO2. Patient has serial rib fractures on the left side with pulmonary laceration and contusion and therefore is not ready of course to be extubated Chest tube no more leak The subcutaneous emphysema is gradually resolving and reabsorbing as expected Abdomen soft active bowel sounds Renal function is adequate however patient's urine output has been marginal in last 24 hours and she is gotten several boluses of fluids Random urine sodium is very high and indicative of renal wasting rather than prerenal insufficiency and volume contraction Fractional sodium excretion is more than 1 We will give some Lasix to help patient along now that she is volume loaded 01/24/2018 Patient spent an uneventful night This morning arterial blood gas reveals combined respiratory and metabolic acidosis unknown cause and origin Patient was given 2 amps of bicarb in additionally volume loaded although she is euvolemic at this time Respiratory parameters have been changed on the ventilator in order to allow to blow off hypercapnia It is quite unclear why patient developed this acid-base disbalance Remains a small dose fentanyl and propofol for mild sedation and pain control Hemodynamically patient is stable Cardiac echo reveals ejection fraction about 60% and no other abnormalities Bilateral breath sounds no more pneumothorax and the subcutaneous emphysema is slowly resolving Chest tube minimal drainage and no air leak Abdomen is soft hypoactive bowel sounds no rebound no guarding no masses CT of the abdomen does not show any abnormalities and lactic acid is 1.4 Renal function has been precarious and last 24 hours. Despite adequate volume loading patient's urine output remained low and at this point is finally catching up and increasing. Slight increase in BUN and creatinine will have nephrology look at the patient In summary well and not sure well patient developed metabolic acidosis this appears to be a anion gap acidosis and the offending agent is certainly not present The only thing obvious is the volume constriction and hypovolemia in the past but this is been corrected therefore will see how patient does At this point there are no obvious sources of sepsis or any clinical causes for hemodynamic instability 01/25/2018 Patient neurologically stable on sedation vacation opens eyes and follows commands intermittently Remains on decreasing doses of propofol Available next few days as far as pulmonary function is concerned but I want to make sure the patient is metabolically stabilized Hemodynamically stable Bilateral breath sounds good PO2 FiO2 gradient on 40% FiO2 with good pulmonary excursion and mechanics Metabolic alkalosis has resolved and was probably due to some volume constriction Abdomen soft will start on enteral diet Renal function improving and nephrology consult greatly appreciated DC bicarbonate drip and start patient on D5 half-normal saline in face of mild hypernatremia Continue care 01/26/2018 Patient is definitely improving Decrease sedation allows for patient to communicate She is very anxious on the respirator and fentanyl has been decreased to be substituted with p.o. Roxicet via NG tube Bilateral good breath sounds good PO2 FiO2 gradient and good pulmonary excursion Patient tolerating CPAP well and she will stay on CPAP during the day to be switched to rate at night She is not quite ready to extubate yet but will extubate most likely tomorrow 01/27/2018 Patient gradually improving and doing very well today Sedation removed Remains hemodynamically stable Bilateral good breath sounds tolerated CPAP very well and pulmonary mechanics have greatly improved Extubate patient today Out of bed Will do bedside swallow and perhaps start patient on diet Aggressive PT OT and patient to be out of bed We will remove chest tube tomorrow 01/27/2018 Patient last about a hour and a half of the extubation but started having difficulty breathing and became stridorous Received duo nebs followed by racemic epinephrine however despite all with patient is unable to maintain her airway and therefore she is reintubated Considering the patient is DNR this is been discussed with her daughter and explained that this is a bridging technique to patient improves At the time of intubation is noted patient's very swollen vocal cords which might have contributed to the problem to start with We will give patient small dose of steroids and perhaps be able to decrease the swelling of the vocal cords and allow for easier extubation next time around 01/28 Failed extubation yesterday Patient is awake-although not agitated certainly discomfort secondary to the ET tube Chest x-ray is unchanged Patient had stridor after the extubation-given this fact we will start him start her on low-dose steroids for 2 days Patient is DNR we will discussed with the family options of extubation-after some more optimization of the patient Resume tube feeds 01/29 Patient is awake mildly sedated she is on CPAP pressure support He has been started on steroids to reduce her chance of stridor case of extubation Shallow breathing index is in acceptable however she is certainly not ready to be extubated We will obtain a palliative consult for the goals of care Objective Vital Signs / I&O: Vital Signs 01/28/18 16:00 01/28/18 16:43 01/28/18 20:00 Temperature 98.4 F 98.7 F Pulse Rate 74 94 H Respiratory Rate 7 L 12 12 Blood Pressure 143/64 H 131/61 Pulse Oximetry 100 99 01/28/18 20:55 01/29/18 00:00 01/29/18 00:31 Temperature 98.7 F Pulse Rate 78 Respiratory Rate 21 15 17 Blood Pressure 140/61 Pulse Oximetry 100 99 97 01/29/18 03:31 01/29/18 04:00 01/29/18 08:00 Temperature 98.4 F 97.7 F Pulse Rate 67 76 Respiratory Rate 14 14 14 Blood Pressure 135/61 128/59 L Pulse Oximetry 97 99 99 01/29/18 08:32 01/29/18 09:21 01/29/18 12:00 Temperature 98.2 F Pulse Rate 71 73 Respiratory Rate 14 21 24 Blood Pressure 138/64 Pulse Oximetry 98 96 01/29/18 12:20 Temperature Pulse Rate Respiratory Rate 21 Blood Pressure Pulse Oximetry 98 Intake & Output 01/28/18 01/29/18 01/29/18 18:59 06:59 18:59 Intake Total 1910 / 1910 1880 / 1880 100 / 100 Output Total 420 / 420 350 / 350 Balance 1490 / 1490 1530 / 1530 100 / 100 Weight 72.3 kg Intake: IV 1450 / 1450 918 / 918 100 / 100 Diprivan 1000 mg/100 ml Inj 1, 86 / 86 100 / 100 000 mg In 100 ml @ 5 MCG/KG/MIN 2.115 mls/hr IV.CONT TITRATE PRN Rx#:[id number] NS Inj 1,000 ML @ 50 mls/hr IV. 1000 / 1000 832 / 832 SIG .Q20H BENNETT Rx#:[id number] Tube Feeding 60 / 60 502 / 502 Tube Irrigant 60 / 60 Water Bolus Amount 400 / 400 400 / 400 Output: Urine Amount (Catheter) 400 / 400 300 / 300 Indwelling Urethral Catheter 400 / 400 300 / 300 Chest Tube Drainage 20 / 20 50 / 50 #1 Left Pleural/Mediastinal 20 / 20 Left 50 / 50 Other: Date of Last Bowel Movement 01/28/18 01/29/18 01/29/18 Result Diagrams: 01/29/18 04:17 01/29/18 04:17 Imaging: Impressions Chest X-Ray 01/29/18 06:00 CONCLUSION: 1. Mild patchy bilateral lower lung atelectasis. 2. Extensive bilateral subcutaneous emphysema. No evidence of pneumothorax. Disinhibition Score: 14.00 Aggression Score: 14.00 Lability Score: 14.00 Agitated Behavior Total Score: 14 - Exam DIRECTOR OF SOCIAL WORK: g score is 11 T Hemodynamic/Cardiac: Stable hemodynamic Pulmonary/Respiratory: CPAP pressure support tolerating well Abdomen/GI Nutrition: Abdomen soft tolerating tube feeds Renal/I&O: Output is adequate Assessment and Plan Plan: continue mechanical ventilation continue decadron to reduce swelling of the vocal cords CPAP,rate at night tube feeds Care consult to obtain goal of care
[2018-01-29] MEDS: Morphine Sulfate Inj 2 MG/ML Vial IV.PUSH PRN (16:57)
[2018-01-29] MEDS: fentaNYL 10 mcg/mL Premix Drip 2,500 MCG/250 ML BAG IV.SIG PRN (17:48)
[2018-01-30] MEDS: Oral Hygiene Kit OROPHARYNG SCH ×5 (00:15→23:59)
[2018-01-30] MEDS: Propofol 1000 mg/100 ml Inj 1,000 MG/100 ML BOTTLE IV.CONT PRN ×3 (01:43→19:39)
[2018-01-30] MEDS: Metoprolol Tartrate 25 MG Tablet PO SCH ×3 (04:48→18:03)
[2018-01-30] MEDS: Sod Chloride 0.9% Inj 1,000 ML IV.SIG SCH ×2 (04:53→08:24)
--- NOTE | 2018-01-30 05:38 | XR ---
EXAM DATE: 01/30/2018 6:00 AM EDT AGE/SEX: 87 years / Female INDICATIONS: Shortness of breath CLINICAL DATA: This is the patient's subsequent encounter. Patient reports that signs and symptoms h ave been present for 1 week and indicates a pain score of Nonresponsive. MEDICAL/SURGICAL HISTORY: . Chronic obstructive pulmonary disease. Left side pneumothorax. Ina st tube, left. COMPARISON: [facility], CHEST 1V SINGLE AP, 01/29/2018. . FINDINGS: Single AP view the chest. Endotracheal tube, nasogastric tube, and left-sided chest tube remain in pl [facility]. Bilateral subcutaneous emphysema again seen. No evidence of pneumothorax. Bilateral pulmonary pa renchymal opacity again seen with increased left lung base. CONCLUSION: 1. Bilateral pulmonary opacity again seen with increase the left lung base. 2. Persistent bilateral subcutaneous emphysema. No evidence of pneumothorax. Electronically signed by: Sami Houston MD 01/30/2018 5:37 AM EDT
[2018-01-30 06:56] LABS: Baso % (Auto) 0.1 % (0.0-2.0); Eos # (Auto) 0.1 th/mm3 (0.0-0.4); Eos % (Auto) 1.2 % (0.0-4.0); Hematocrit 24.9 % (35.0-46.0); Hemoglobin 8.2 gm/dL (11.6-15.3); Lymph # (Auto) 0.9 th/mm3 (1.0-4.8); Lymph % (Auto) 9.9 % (9.0-44.0); Mean Platelet Volume 9.1 fL (7.0-11.0); Mono # (Auto) 0.8 th/mm3 (0.0-0.9); Mono % (Auto) 9.2 % (0.0-8.0); Neut # (Auto) 7.1 th/mm3 (1.8-7.7); Neut % (Auto) 79.6 % (16.0-70.0); Platelet Count 270 th/mm3 (150-450); Red Blood Count 2.83 mil/mm3 (4.00-5.30); Red Cell Distribution Width 15.6 % (11.6-17.2); White Blood Count 8.9 th/mm3 (4.0-11.0)
[2018-01-30 07:07] LABS: Alanine Aminotransferase 50 U/L (10-53); Albumin 1.8 g/dL (3.4-5.0); Anion Gap 5 meq/L (5-15); Aspartate Aminotransferase 41 U/L (15-37); Blood Urea Nitrogen 24 mg/dL (7-18); Calcium 8.2 mg/dL (8.5-10.1); Carbon Dioxide 28.9 meq/L (21.0-32.0); Chloride 110 meq/L (98-107); Glomerular Filtration Rate 87 mL/min (>89); Glucose,Random 126 mg/dL (74-106); Potassium 3.7 meq/L (3.5-5.1); Sodium 144 meq/L (136-145)
[2018-01-30 07:08] LABS: Alkaline Phosphatase 122 U/L (45-117); Total Protein 5.3 g/dL (6.4-8.2)
[2018-01-30] MEDS: Chlorhexidine 0.12% Oral Kit 15 ML UDC OROPHARYNG SCH ×2 (08:39→20:12)
[2018-01-30] MEDS: Lidocaine 5% Patch T-DERMAL SCH (08:40)
[2018-01-30] MEDS: Escitalopram 10 MG Tablet PO SCH (08:40)
[2018-01-30] MEDS: Senna/Docusate Sodium 8.6/50 MG Tablet PO SCH ×2 (08:40→20:11)
[2018-01-30] MEDS: amLODIPine 5 MG Tablet PO SCH (08:40)
[2018-01-30] MEDS: Enoxaparin Inj 30 MG/0.3 ML Syringe SQ SCH (08:40)
[2018-01-30] MEDS: Sodium Chloride 0.9% 2 ML Flush BID IV.FLUSH SCH ×2 (08:41→20:12)
--- NOTE | 2018-01-30 13:05 | P.PNCC ---
Subjective Brief History: 88-year-old female fell at home from standing position when she tripped. Transferred to the emergency room awake and complaining of the pain on the left side of her chest. Patient transferred this priority 2 trauma alert and on arrival noted to have very extensive subcutaneous emphysema extending from the lower chest all the way to the neck and the face. Patient was resuscitated according trauma principles primary secondary survey resuscitation definitive care carried out and patient underwent full diagnostic and clinical workup Final diagnoses include Large left-sided pneumothorax. Extensive subcutaneous emphysema extending throughout the chest and upper abdomen bilaterally. Pneumomediastinum. Multiple acute fractures involving the left rib cage with significant displacement of the left 7, 8, 9 ribs and Nondisplaced fractures involving the left 5, 6, 10, and 11th ribs. Patient is now intubated and ventilated will remain on the ventilator for the duration. In the face of serial rib fractures and underlying pulmonary contusion patient will require prolonged intubation and ventilation and will eventually either come off the ventilator or may require tracheostomy Patient has underlying severe pulmonary emphysema has been a lifetime smoker I discussed this at length with the family and patient is DO NOT RESUSCITATE 24 Hour Review/Hospital Course: 01/23/2018 Patient has been stable throughout the night Neurologically she is improved she is opening eyes and following simple commands apparently responding to her family but remains sedated in the face of ventilatory support Hemodynamically stable Bilateral breath sounds on assist control ventilation and good PO2 FiO2 gradient on 40% FiO2. Patient has serial rib fractures on the left side with pulmonary laceration and contusion and therefore is not ready of course to be extubated Chest tube no more leak The subcutaneous emphysema is gradually resolving and reabsorbing as expected Abdomen soft active bowel sounds Renal function is adequate however patient's urine output has been marginal in last 24 hours and she is gotten several boluses of fluids Random urine sodium is very high and indicative of renal wasting rather than prerenal insufficiency and volume contraction Fractional sodium excretion is more than 1 We will give some Lasix to help patient along now that she is volume loaded 01/24/2018 Patient spent an uneventful night This morning arterial blood gas reveals combined respiratory and metabolic acidosis unknown cause and origin Patient was given 2 amps of bicarb in additionally volume loaded although she is euvolemic at this time Respiratory parameters have been changed on the ventilator in order to allow to blow off hypercapnia It is quite unclear why patient developed this acid-base disbalance Remains a small dose fentanyl and propofol for mild sedation and pain control Hemodynamically patient is stable Cardiac echo reveals ejection fraction about 60% and no other abnormalities Bilateral breath sounds no more pneumothorax and the subcutaneous emphysema is slowly resolving Chest tube minimal drainage and no air leak Abdomen is soft hypoactive bowel sounds no rebound no guarding no masses CT of the abdomen does not show any abnormalities and lactic acid is 1.4 Renal function has been precarious and last 24 hours. Despite adequate volume loading patient's urine output remained low and at this point is finally catching up and increasing. Slight increase in BUN and creatinine will have nephrology look at the patient In summary well and not sure well patient developed metabolic acidosis this appears to be a anion gap acidosis and the offending agent is certainly not present The only thing obvious is the volume constriction and hypovolemia in the past but this is been corrected therefore will see how patient does At this point there are no obvious sources of sepsis or any clinical causes for hemodynamic instability 01/25/2018 Patient neurologically stable on sedation vacation opens eyes and follows commands intermittently Remains on decreasing doses of propofol Available next few days as far as pulmonary function is concerned but I want to make sure the patient is metabolically stabilized Hemodynamically stable Bilateral breath sounds good PO2 FiO2 gradient on 40% FiO2 with good pulmonary excursion and mechanics Metabolic alkalosis has resolved and was probably due to some volume constriction Abdomen soft will start on enteral diet Renal function improving and nephrology consult greatly appreciated DC bicarbonate drip and start patient on D5 half-normal saline in face of mild hypernatremia Continue care 01/26/2018 Patient is definitely improving Decrease sedation allows for patient to communicate She is very anxious on the respirator and fentanyl has been decreased to be substituted with p.o. Roxicet via NG tube Bilateral good breath sounds good PO2 FiO2 gradient and good pulmonary excursion Patient tolerating CPAP well and she will stay on CPAP during the day to be switched to rate at night She is not quite ready to extubate yet but will extubate most likely tomorrow 01/27/2018 Patient gradually improving and doing very well today Sedation removed Remains hemodynamically stable Bilateral good breath sounds tolerated CPAP very well and pulmonary mechanics have greatly improved Extubate patient today Out of bed Will do bedside swallow and perhaps start patient on diet Aggressive PT OT and patient to be out of bed We will remove chest tube tomorrow 01/27/2018 Patient last about a hour and a half of the extubation but started having difficulty breathing and became stridorous Received duo nebs followed by racemic epinephrine however despite all with patient is unable to maintain her airway and therefore she is reintubated Considering the patient is DNR this is been discussed with her daughter and explained that this is a bridging technique to patient improves At the time of intubation is noted patient's very swollen vocal cords which might have contributed to the problem to start with We will give patient small dose of steroids and perhaps be able to decrease the swelling of the vocal cords and allow for easier extubation next time around 01/28 Failed extubation yesterday Patient is awake-although not agitated certainly discomfort secondary to the ET tube Chest x-ray is unchanged Patient had stridor after the extubation-given this fact we will start him start her on low-dose steroids for 2 days Patient is DNR we will discussed with the family options of extubation-after some more optimization of the patient Resume tube feeds 01/29 Patient is awake mildly sedated she is on CPAP pressure support He has been started on steroids to reduce her chance of stridor case of extubation Shallow breathing index is in acceptable however she is certainly not ready to be extubated We will obtain a palliative consult for the goals of care 01/30 Is awake her eyes are open-comfortable with fentanyl drip and propofol drip as I had a long discussion with family yesterday and they opted for terminal extubation on Saturday Until then we will keep patient comfortable intubated and will not accelerate care Case of accidental or self extubation patient will not be intubated according to family wishes Objective Vital Signs / I&O: Vital Signs 01/29/18 16:00 01/29/18 16:37 01/29/18 16:39 Temperature 97.8 F Pulse Rate 70 67 Respiratory Rate 18 15 16 Blood Pressure 134/62 Pulse Oximetry 99 96 01/29/18 20:00 01/29/18 20:36 01/30/18 00:00 Temperature 98.1 F 97.9 F Pulse Rate 60 61 Respiratory Rate 12 13 13 Blood Pressure 114/59 L 111/54 L Pulse Oximetry 97 98 96 01/30/18 00:47 01/30/18 03:54 01/30/18 04:00 Temperature 97.6 F Pulse Rate 58 L Respiratory Rate 13 12 12 Blood Pressure 114/54 L Pulse Oximetry 96 95 96 01/30/18 08:00 01/30/18 08:29 01/30/18 12:00 Temperature 97.7 F 97 F L Pulse Rate 57 L 62 Respiratory Rate 12 12 12 Blood Pressure 131/59 L 111/58 L Pulse Oximetry 96 96 95 Intake & Output 01/29/18 01/30/18 01/30/18 18:59 06:59 18:59 Intake Total 1690 / 1690 1278 / 1278 475 / 475 Output Total 475 / 475 550 / 550 Balance 1215 / 1215 728 / 728 475 / 475 Weight 73.2 kg Intake: IV 856 / 856 348 / 348 475 / 475 Diprivan 1000 mg/100 ml Inj 1, 185 / 185 15 / 15 100 / 100 000 mg In 100 ml @ 5 MCG/KG/MIN 2.115 mls/hr IV.CONT TITRATE PRN Rx#:[id number] NS Inj 1,000 ML @ 50 mls/hr IV. 667 / 667 333 / 333 250 / 250 SIG .Q20H BENNETT Rx#:[id number] 10 mcg/mL Premix Drip 4 / 4 125 / 125 2,500 mcg In 250 ml @ 50 MCG/HR 5 mls/hr IV.SIG TITRATE PRN Rx #:[id number] Tube Feeding 524 / 524 470 / 470 Tube Irrigant 60 / 60 60 / 60 Water Bolus Amount 250 / 250 400 / 400 Output: Stool 0 / 0 Urine Amount (Catheter) 450 / 450 450 / 450 Indwelling Urethral Catheter 450 / 450 450 / 450 Chest Tube Drainage 25 / 25 100 / 100 #1 Left Pleural/Mediastinal 25 / 25 Left 100 / 100 Other: Date of Last Bowel Movement 01/29/18 01/29/18 01/29/18 # Bowel Movements 1 Result Diagrams: 01/30/18 06:08 01/30/18 06:08 Imaging: Impressions Chest X-Ray 01/30/18 06:00 CONCLUSION: 1. Bilateral pulmonary opacity again seen with increase the left lung base. 2. Persistent bilateral subcutaneous emphysema. No evidence of pneumothorax. Disinhibition Score: 14.00 Aggression Score: 14.00 Lability Score: 14.00 Agitated Behavior Total Score: 14 - Exam SOLUTIONS OPERATOR: g coma score is 8T Hemodynamic/Cardiac: Stable Pulmonary/Respiratory: mechanical ventilation-continue chest tube Abdomen/GI Nutrition: Abdomen is soft is benign tolerating tube Hematologic: Globin is 8.2 Assessment and Plan Plan: continue mechanical ventilation terminal extubation on Saturday long discussion with family yesterday
[2018-01-30] MEDS: Pantoprazole Inj 40 MG Vial IV.PUSH SCH (14:25)
[2018-01-30] MEDS: Morphine Sulfate Inj 2 MG/ML Vial IV.PUSH PRN (15:12)
[2018-01-30] MEDS: fentaNYL 10 mcg/mL Premix Drip 2,500 MCG/250 ML BAG IV.SIG PRN (15:35)
--- NOTE | 2018-01-30 16:12 | P.PNPAL ---
Reason for Visit Reason for visit: a. To assist with evaluation and management of symptoms including: dyspnea, pain b. To assist medical decision maker(s) with: better understanding of current medical conditions; weighing benefits/burdens of medical treatment options; making medical treatment decisions. Subjective Subjective/Interval History: INTERVAL NOTE: The patient remains in ISC, intubated, on fentanyl 100 mics and propofol. She opens her eyes at times and has not appeared painful on this regimen. She remains on FiO2 45%. Her renal function has normalized, her albumin is down to 1.8. Family/Friend Interactions: Lengthy discussion with patient's daughter and son in the hallway. To honor the patient's previously expressed wishes, they have elected to proceed with compassionate withdrawal of life support tomorrow afternoon after other family members arrive. They want to focus to stay on comfort, and understand the patient will likely soon. In addition, they note that the patient has been on medicine for anxiety for several months, and they would like her placed back on some anxiety medicine at this time. Advance Directives Significant change in goals:: Family wants to focus on comfort, and they are planning a compassionate withdrawal of life support to allow natural tomorrow afternoon. Objective Vital Signs: Vital Signs 01/29/18 16:00 01/29/18 16:37 01/29/18 16:39 Temperature 97.8 F Pulse Rate 70 67 Respiratory Rate 18 15 16 Blood Pressure 134/62 Pulse Oximetry 99 96 01/29/18 20:00 01/29/18 20:36 01/30/18 00:00 Temperature 98.1 F 97.9 F Pulse Rate 60 61 Respiratory Rate 12 13 13 Blood Pressure 114/59 L 111/54 L Pulse Oximetry 97 98 96 01/30/18 00:47 01/30/18 03:54 01/30/18 04:00 Temperature 97.6 F Pulse Rate 58 L Respiratory Rate 13 12 12 Blood Pressure 114/54 L Pulse Oximetry 96 95 96 01/30/18 08:00 01/30/18 08:29 01/30/18 12:00 Temperature 97.7 F 97 F L Pulse Rate 57 L 62 Respiratory Rate 12 12 12 Blood Pressure 131/59 L 111/58 L Pulse Oximetry 96 96 95 01/30/18 14:25 Temperature Pulse Rate Respiratory Rate 17 Blood Pressure Pulse Oximetry 98 Intake & Output 01/29/18 01/30/18 01/30/18 18:59 06:59 18:59 Intake Total 1690 / 1690 1278 / 1278 725 / 725 Output Total 475 / 475 550 / 550 Balance 1215 / 1215 728 / 728 725 / 725 Weight 73.2 kg Intake: IV 856 / 856 348 / 348 725 / 725 Diprivan 1000 mg/100 ml Inj 1, 185 / 185 15 / 15 100 / 100 000 mg In 100 ml @ 5 MCG/KG/MIN 2.115 mls/hr IV.CONT TITRATE PRN Rx#:[id number] NS Inj 1,000 ML @ 50 mls/hr IV. 667 / 667 333 / 333 250 / 250 SIG .Q20H BENNETT Rx#:[id number] fentaNYL 10 mcg/mL Premix Drip 4 / 4 375 / 375 2,500 mcg In 250 ml @ 50 MCG/HR 5 mls/hr IV.SIG TITRATE PRN Rx #:[id number] Tube Feeding 524 / 524 470 / 470 Tube Irrigant 60 / 60 60 / 60 Water Bolus Amount 250 / 250 400 / 400 Output: Stool 0 / 0 Urine Amount (Catheter) 450 / 450 450 / 450 Indwelling Urethral Catheter 450 / 450 450 / 450 Chest Tube Drainage 25 / 25 100 / 100 #1 Left Pleural/Mediastinal 25 / 25 Left 100 / 100 Other: Date of Last Bowel Movement 01/29/18 01/29/18 01/29/18 # Bowel Movements 1 Physical Exam: CONSTITUTIONAL/GENERAL: adequately nourished woman, intubated on vent TUBES/LINES/DRAINS: OETT, purvis, NGT, chest tube SKIN: No jaundice, rashes, or lesions. Skin temperature appropriate. Not diaphoretic. + subq emphysema chest NECK: Trachea midline. Supple CARDIOVASCULAR: RRR without murmurs, gallops, or rubs. No JVD. Peripheral pulses symmetric. RESPIRATORY/CHEST: Symmetric, unlabored respirations. coarse lung sounds, crackles GASTROINTESTINAL: Abdomen soft, nondistended. No hepato-splenomegaly, or palpable masses. No guarding. Bowel sounds present. GENITOURINARY: Without palpable bladder distension. Purvis catheter in place. MUSCULOSKELETAL: Extremities without clubbing, cyanosis, or edema. No mottling or clubbing. NEUROLOGICAL: sedated on vent. opens eyes. PSYCHIATRIC: unable to assess, sedated on vent Diagnostic Tests Laboratory: Laboratory Results - last 72 hr 01/28/18 01/28/18 01/28/18 03:13 03:13 08:39 WBC 10.4 RBC 3.12 L Hgb 8.8 L Hct 26.9 L MCV 86.2 MCH 28.2 MCHC 32.7 RDW 14.8 Plt Count 249 MPV 9.1 Neut % (Auto) 82.7 H Lymph % (Auto) 5.2 L [place] % (Auto) 11.0 H Eos % (Auto) 0.8 Baso % (Auto) 0.3 Neut # (Auto) 8.6 H Lymph # (Auto) 0.5 L [place] # (Auto) 1.1 H Eos # (Auto) 0.1 Baso # (Auto) 0.0 WBC Differential . Differential Comment Auto diff final Puncture Site Right radial Patient Temperature 98.6 O2 Saturation 98 ABG pH 7.49 H ABG pCO2 35 L ABG pO2 194 H ABG HCO3 26 ABG O2 Content 13.8 ABG Base Excess 2.6 H ABG Methemoglobin 1.0 Enzo Test Present Hemoglobin 9.7 L Carboxyhemoglobin 1.1 O2 Delivery Device Vent Vent Setting Prvc/12/450/1.0/+5 Inspired O2 50 Critical Value No Sodium 145 Potassium 3.8 Chloride 109 H Carbon Dioxide 28.4 Anion Gap 8 BUN 21 H Creatinine 0.82 Estimated GFR 66 L Random Glucose 94 Calcium 8.8 Total Bilirubin 0.5 AST 28 ALT 36 Alkaline Phosphatase 129 H Total Protein 5.9 L Albumin 2.1 L 01/29/18 01/29/18 01/29/18 04:17 04:17 05:34 WBC 9.9 RBC 2.89 L Hgb 8.3 L Hct 24.9 L MCV 85.9 MCH 28.6 MCHC 33.3 RDW 15.3 Plt Count 262 MPV 9.5 Neut % (Auto) 88.7 H Lymph % (Auto) 4.6 L [place] % (Auto) 6.4 Eos % (Auto) 0.1 Baso % (Auto) 0.2 Neut # (Auto) 8.8 H Lymph # (Auto) 0.5 L [place] # (Auto) 0.6 Eos # (Auto) 0.0 Baso # (Auto) 0.0 WBC Differential . Differential Comment Auto diff final Puncture Site Right radial Patient Temperature 98.6 O2 Saturation 95 ABG pH 7.36 L ABG pCO2 52 H* ABG pO2 90 ABG HCO3 28 H ABG O2 Content 11.8 L ABG Base Excess 3.4 H ABG Methemoglobin 0.7 Enzo Test Present Hemoglobin 8.7 L Carboxyhemoglobin 1.1 O2 Delivery Device Ventilator Vent Setting Prvc/ac Inspired O2 45 Critical Value Yes Sodium 145 Potassium 3.8 Chloride 110 H Carbon Dioxide 29.0 Anion Gap 6 BUN 26 H Creatinine 0.77 Estimated GFR 71 L Random Glucose 162 H Calcium 8.2 L Total Bilirubin 0.3 AST 26 ALT 39 Alkaline Phosphatase 134 H Total Protein 5.8 L Albumin 2.0 L 01/30/18 01/30/18 06:08 06:08 WBC 8.9 RBC 2.83 L Hgb 8.2 L Hct 24.9 L MCV 88.0 MCH 29.0 MCHC 33.0 RDW 15.6 Plt Count 270 MPV 9.1 Neut % (Auto) 79.6 H Lymph % (Auto) 9.9 [place] % (Auto) 9.2 H Eos % (Auto) 1.2 Baso % (Auto) 0.1 Neut # (Auto) 7.1 Lymph # (Auto) 0.9 L [place] # (Auto) 0.8 Eos # (Auto) 0.1 Baso # (Auto) 0.0 WBC Differential . Differential Comment Auto diff final Puncture Site Patient Temperature O2 Saturation ABG pH ABG pCO2 ABG pO2 ABG HCO3 ABG O2 Content ABG Base Excess ABG Methemoglobin Enzo Test Hemoglobin Carboxyhemoglobin O2 Delivery Device Vent Setting Inspired O2 Critical Value Sodium 144 Potassium 3.7 Chloride 110 H Carbon Dioxide 28.9 Anion Gap 5 BUN 24 H Creatinine 0.65 Estimated GFR 87 L Random Glucose 126 H Calcium 8.2 L Total Bilirubin 0.2 AST 41 H ALT 50 Alkaline Phosphatase 122 H Total Protein 5.3 L Albumin 1.8 L Result Diagrams: 01/30/18 06:08 01/30/18 06:08 Imaging: Pelvis X-Ray 01/22/18 12:13 CONCLUSION: Negative examination. Chest CT 01/22/18 12:33 CONCLUSION: 1. Large left-sided pneumothorax. 2. Extensive subcutaneous emphysema extending throughout the chest and upper abdomen bilaterally. 3. Pneumomediastinum. 4. Multiple acute fractures involving the left rib cage with significant displacement of the left seventh eighth and ninth ribs and nondisplaced fractures involving the left fifth, 6, 10, and 11th ribs. 5. Scattered emphysematous changes bilaterally. 6. Coronary artery calcification. 7. Mild diffuse decreased attenuation liver suggesting possible fatty infiltration. Head CT 01/22/18 12:33 CONCLUSION: 1. Negative CT Head non contrast. Extensive air in the subcutaneous tissues . Abdomen/Pelvis CT 01/24/18 00:00 CONCLUSION: 1. Progression of the extensive subcutis emphysema. 2. Left chest tube in good position 3. Small amount of fluid about the tip of the liver 4. Multiple rib fractures Humerus X-Ray 01/27/18 00:00 CONCLUSION: No fracture seen in the shaft of the humerus. Incomplete evaluation of the surgical neck of the humerus. Recommend additional views of the right shoulder. Lumbar Spine X-Ray 01/27/18 00:00 CONCLUSION: Lateral view of the lumbar spine demonstrate grade 1 anterolisthesis at L4-5. No compression deformities seen. Shoulder X-Ray 01/28/18 00:00 CONCLUSION: No acute bony abnormality identified. Chest X-Ray 01/30/18 06:00 CONCLUSION: 1. Bilateral pulmonary opacity again seen with increase the left lung base. 2. Persistent bilateral subcutaneous emphysema. No evidence of pneumothorax. Procedures: 01/22 intubated 01/27 extubated, reintubated Assessment and Plan - Disease Oriented Problem List (1) Respiratory failure (2) Pneumothorax on left (3) Multiple rib fractures (4) Subcutaneous emphysema due to trauma (5) Acute kidney injury (6) Multisystem blunt trauma - Symptom Scale (1) Dyspnea 0-10 Scale: Unable to quantify (2) Pain 0-10 Scale: Unable to quantify Pertinent Non-Medical Issues: Psychosocial: Originally from [place]. 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 Had 4 children- 3 boys 1 girl. 1 son is . Spiritual: no preferences, not important to pt Legal: Pt is not capacitated to make decisions. It appears that she will not regain that capacity. Daughter to provide documentation of POA. In the absence of a designated surrogate, Per [place] statutes proxy decision-making falls to majority of patient's 3 adult children. Family is cooperative and working together. Ethical issues impacting care: none Important Contacts: Daughter Marilee [phone] Prognosis: 87 y/o female lifelong smoker with COPD who presented 01/22 as trauma alert after fall at home. Sustained fracture ribs, large pneumothorax, sq emphysema, pneumomediastium, pulmonary laceration and contusion. Given her underlying COPD , rib fractures and lung injuries, there is a high likelihood she could remain on the ventilator for a long time. Her prognosis is poor. Code Status: No Code DNR Plan: - LEGAL DECISION MAKER - Pt is not capacitated to make decisions. It appears that she will not regain that capacity. Daughter to provide documentation of POA. In the absence of a designated surrogate, Per [place] statutes proxy decision- making falls to majority of patient's 3 adult children. Family is cooperative and working together. - CODE STATUS- DNR - GOALS - Goals are comfort oriented. To honor the patient's previously expressed wishes, they have elected to proceed with compassionate withdrawal of life support tomorrow afternoon after other family members arrive.. - SYMPTOMS - * dyspnea - life long smoker, COPD, suffered lung laceration, rib fx, pneumothorax. now intubated on vent, extubated and then reintubated same day.fiO2 45%, sat 98%. has PRN and scheduled duonebs, scheduled decadron, * anxiety - multifactorial, in part likely r/t dyspnea. She has been on anxiety medicine for several months, and the family has requested that we add that back into her current drug regimen. I will add some Ativan at the request of the family. * pain -the patient remains on fentanyl and propofol, and does not appear obviously painful at this time.. - Palliative care will continue to follow the patient during this hospitalization. Time Spent Total Floor Time (mins): 43 Face to Face Time (mins): 12 >50% Time in Counseling or Coordination of Care: Yes Attestation Attestation: To help prompt me to consider important information that might be impacting today's encounter and assessment, information from prior notes written by myself or my colleagues may have been "brought forward" into today's note. My signature on this note, however, is an attestation that I personally performed the exam, history, and/or decision-making noted today, and, unless otherwise indicated, the interactions with patient, family, and staff as well as the review of records all occurred today. I also attest that the listed assessment and stated plan reflect my best clinical judgment today based on the combination of historical information, prior notes, and today's exam/ interactions. When time spent is documented, it refers only to time spent today by the signer, or if indicated, combined time spent today by collaborating physician/nurse practitioner.
[2018-01-31] MEDS: Metoprolol Tartrate 25 MG Tablet PO SCH ×2 (02:08→09:18)
[2018-01-31] MEDS: Sod Chloride 0.9% Inj 1,000 ML IV.SIG SCH (05:13)
[2018-01-31] MEDS: Oral Hygiene Kit OROPHARYNG SCH ×3 (05:15→16:25)
[2018-01-31] MEDS: Propofol 1000 mg/100 ml Inj 1,000 MG/100 ML BOTTLE IV.CONT PRN (06:09)
[2018-01-31] MEDS: Lidocaine 5% Patch T-DERMAL SCH (08:40)
[2018-01-31] MEDS: Escitalopram 10 MG Tablet PO SCH (08:40)
[2018-01-31] MEDS: amLODIPine 5 MG Tablet PO SCH (08:40)
[2018-01-31] MEDS: Enoxaparin Inj 30 MG/0.3 ML Syringe SQ SCH (08:40)
[2018-01-31] MEDS: Senna/Docusate Sodium 8.6/50 MG Tablet PO SCH (08:40)
[2018-01-31] MEDS: Sodium Chloride 0.9% 2 ML Flush BID IV.FLUSH SCH (08:41)
[2018-01-31] MEDS: Chlorhexidine 0.12% Oral Kit 15 ML UDC OROPHARYNG SCH (08:41)
--- NOTE | 2018-01-31 12:33 | P.PNPAL ---
Reason for Visit Reason for visit: a. To assist with evaluation and management of symptoms including: dyspnea, pain b. To assist medical decision maker(s) with: better understanding of current medical conditions; weighing benefits/burdens of medical treatment options; making medical treatment decisions. Subjective Subjective/Interval History: INTERVAL NOTE: The patient remains in ISC, intubated, on fentanyl 100 mics and propofol, ativan , atarax. She appears comfortable except when being suctioned by RN. RN reports she opens eyes intermittently. Family at bedside. FiO2 45%. Renal function improved. Family/Friend Interactions: All 3 of pt's living children present at bedside. Reviewed palliative care role. Discussion in hallways with daughter Marilee. Reviewed anticipatory guidance. They are awaiting another family member to arrive by plane this afternoon. They request compassionate extubation at 1500 today. They are resistant to discussion of transfer to hospice care center. Objective Vital Signs: Vital Signs 01/30/18 14:25 01/30/18 16:00 01/30/18 16:17 Temperature 97.6 F Pulse Rate 68 Respiratory Rate 17 12 14 Blood Pressure 105/52 L Pulse Oximetry 98 96 95 01/30/18 20:00 01/30/18 20:40 01/31/18 00:00 Temperature 98.3 F 97.9 F Pulse Rate 64 65 66 Respiratory Rate 12 12 12 Blood Pressure 105/51 L 133/58 L Pulse Oximetry 99 98 100 01/31/18 00:18 01/31/18 03:34 01/31/18 04:00 Temperature 98.1 F Pulse Rate 70 79 Respiratory Rate 13 17 12 Blood Pressure 111/55 L Pulse Oximetry 99 99 99 01/31/18 08:00 Temperature 100 F H Pulse Rate 78 Respiratory Rate 15 Blood Pressure 105/59 L Pulse Oximetry 97 Intake & Output 01/30/18 01/31/18 01/31/18 18:59 06:59 18:59 Intake Total 2647 / 2647 1457 / 1457 Output Total 550 / 550 1155 / 1155 Balance 2097 / 2097 302 / 302 Weight 67.3 kg Intake: IV 1639 / 1639 445 / 445 Diprivan 1000 mg/100 ml Inj 1, 190 / 190 110 / 110 000 mg In 100 ml @ 5 MCG/KG/MIN 2.115 mls/hr IV.CONT TITRATE PRN Rx#:[id number] NS Inj 1,000 ML @ 50 mls/hr IV. 915 / 915 335 / 335 SIG .Q20H BENNETT Rx#:[id number] fentaNYL 10 mcg/mL Premix Drip 534 / 534 2,500 mcg In 250 ml @ 50 MCG/HR 5 mls/hr IV.SIG TITRATE PRN Rx #:[id number] Oral 0 / 0 Tube Feeding 548 / 548 352 / 352 Tube Irrigant 60 / 60 60 / 60 Water Bolus Amount 400 / 400 400 / 400 Other 200 / 200 Output: Stool 0 / 0 Urine Amount (Catheter) 550 / 550 550 / 550 Indwelling Urethral Catheter 550 / 550 550 / 550 Gastric Drainage 580 / 580 Oral Orogastric Tube 580 / 580 Chest Tube Drainage #1 Left Pleural/Mediastinal Left 0 / 0 Other: Date of Last Bowel Movement 01/29/18 01/31/18 01/29/18 # Bowel Movements 1 # Incontinent Bowel Movements 1 Physical Exam: CONSTITUTIONAL/GENERAL: adequately nourished woman, intubated on vent TUBES/LINES/DRAINS: OETT, purvis, NGT, chest tube SKIN: No jaundice, rashes, or lesions. Skin temperature appropriate. Not diaphoretic. + subq emphysema chest NECK: Trachea midline. Supple CARDIOVASCULAR: RRR without murmurs, gallops, or rubs. No JVD. Peripheral pulses symmetric. RESPIRATORY/CHEST: Symmetric, unlabored respirations. coarse lung sounds, crackles GASTROINTESTINAL: Abdomen soft, nondistended. No hepato-splenomegaly, or palpable masses. Bowel sounds present. GENITOURINARY: Without palpable bladder distension. Purvis catheter in place. MUSCULOSKELETAL: Extremities without clubbing, cyanosis, or edema. No mottling or clubbing. NEUROLOGICAL: sedated on vent. opens eyes. PSYCHIATRIC: unable to assess, sedated on vent Diagnostic Tests Laboratory: Laboratory Results - last 72 hr 01/29/18 01/29/18 01/29/18 04:17 04:17 05:34 WBC 9.9 RBC 2.89 L Hgb 8.3 L Hct 24.9 L MCV 85.9 MCH 28.6 MCHC 33.3 RDW 15.3 Plt Count 262 MPV 9.5 Neut % (Auto) 88.7 H Lymph % (Auto) 4.6 L [place] % (Auto) 6.4 Eos % (Auto) 0.1 Baso % (Auto) 0.2 Neut # (Auto) 8.8 H Lymph # (Auto) 0.5 L [place] # (Auto) 0.6 Eos # (Auto) 0.0 Baso # (Auto) 0.0 WBC Differential . Differential Comment Auto diff final Puncture Site Right radial Patient Temperature 98.6 O2 Saturation 95 ABG pH 7.36 L ABG pCO2 52 H* ABG pO2 90 ABG HCO3 28 H ABG O2 Content 11.8 L ABG Base Excess 3.4 H ABG Methemoglobin 0.7 Enzo Test Present Hemoglobin 8.7 L Carboxyhemoglobin 1.1 O2 Delivery Device Ventilator Vent Setting Prvc/ac Inspired O2 45 Critical Value Yes Sodium 145 Potassium 3.8 Chloride 110 H Carbon Dioxide 29.0 Anion Gap 6 BUN 26 H Creatinine 0.77 Estimated GFR 71 L Random Glucose 162 H Calcium 8.2 L Total Bilirubin 0.3 AST 26 ALT 39 Alkaline Phosphatase 134 H Total Protein 5.8 L Albumin 2.0 L 01/30/18 01/30/18 06:08 06:08 WBC 8.9 RBC 2.83 L Hgb 8.2 L Hct 24.9 L MCV 88.0 MCH 29.0 MCHC 33.0 RDW 15.6 Plt Count 270 MPV 9.1 Neut % (Auto) 79.6 H Lymph % (Auto) 9.9 [place] % (Auto) 9.2 H Eos % (Auto) 1.2 Baso % (Auto) 0.1 Neut # (Auto) 7.1 Lymph # (Auto) 0.9 L [place] # (Auto) 0.8 Eos # (Auto) 0.1 Baso # (Auto) 0.0 WBC Differential . Differential Comment Auto diff final Puncture Site Patient Temperature O2 Saturation ABG pH ABG pCO2 ABG pO2 ABG HCO3 ABG O2 Content ABG Base Excess ABG Methemoglobin Enzo Test Hemoglobin Carboxyhemoglobin O2 Delivery Device Vent Setting Inspired O2 Critical Value Sodium 144 Potassium 3.7 Chloride 110 H Carbon Dioxide 28.9 Anion Gap 5 BUN 24 H Creatinine 0.65 Estimated GFR 87 L Random Glucose 126 H Calcium 8.2 L Total Bilirubin 0.2 AST 41 H ALT 50 Alkaline Phosphatase 122 H Total Protein 5.3 L Albumin 1.8 L Result Diagrams: 01/30/18 06:08 01/30/18 06:08 Imaging: ITS Impressions Pelvis X-Ray 01/22/18 12:13 CONCLUSION: Negative examination. Chest CT 01/22/18 12:33 CONCLUSION: 1. Large left-sided pneumothorax. 2. Extensive subcutaneous emphysema extending throughout the chest and upper abdomen bilaterally. 3. Pneumomediastinum. 4. Multiple acute fractures involving the left rib cage with significant displacement of the left seventh eighth and ninth ribs and nondisplaced fractures involving the left fifth, 6, 10, and 11th ribs. 5. Scattered emphysematous changes bilaterally. 6. Coronary artery calcification. 7. Mild diffuse decreased attenuation liver suggesting possible fatty infiltration. Head CT 01/22/18 12:33 CONCLUSION: 1. Negative CT Head non contrast. Extensive air in the subcutaneous tissues . Abdomen/Pelvis CT 01/24/18 00:00 CONCLUSION: 1. Progression of the extensive subcutis emphysema. 2. Left chest tube in good position 3. Small amount of fluid about the tip of the liver 4. Multiple rib fractures Humerus X-Ray 01/27/18 00:00 CONCLUSION: No fracture seen in the shaft of the humerus. Incomplete evaluation of the surgical neck of the humerus. Recommend additional views of the right shoulder. Lumbar Spine X-Ray 01/27/18 00:00 CONCLUSION: Lateral view of the lumbar spine demonstrate grade 1 anterolisthesis at L4-5. No compression deformities seen. Shoulder X-Ray 01/28/18 00:00 CONCLUSION: No acute bony abnormality identified. Chest X-Ray 01/30/18 06:00 CONCLUSION: 1. Bilateral pulmonary opacity again seen with increase the left lung base. 2. Persistent bilateral subcutaneous emphysema. No evidence of pneumothorax. 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 Had 4 children- 3 boys 1 girl. 1 son is . Spiritual: no preferences, not important to pt Legal: Pt is not capacitated to make decisions. It appears that she will not regain that capacity. Daughter to provide documentation of POA. In the absence of a designated surrogate, Per [place] statutes proxy decision-making falls to majority of patient's 3 adult children. Family is cooperative and working together. Ethical issues impacting care: none Important Contacts: Daughter Marilee [phone] Prognosis: 87 y/o female lifelong smoker with COPD who presented 01/22 as trauma alert after fall at home. Sustained fracture ribs, large pneumothorax, sq emphysema, pneumomediastium, pulmonary laceration and contusion. Given her underlying COPD , rib fractures and lung injuries, there is a high likelihood she could remain on the ventilator for a long time. Her prognosis is poor. Code Status: No Code DNR Plan: - LEGAL DECISION MAKER - Pt is not capacitated to make decisions. It appears that she will not regain that capacity. Daughter to provide documentation of POA. In the absence of a designated surrogate, Per [place] statutes proxy decision- making falls to majority of patient's 3 adult children. Family is cooperative and working together. - CODE STATUS- DNR - GOALS - Goals are comfort oriented. To honor the patient's previously expressed wishes, they have elected to proceed with compassionate withdrawal of life support this afternoon around 1500, after other family members arrive. - SYMPTOMS - * dyspnea - life long smoker, COPD, suffered lung laceration, rib fx, pneumothorax. now intubated on vent, extubated and then reintubated same day.fiO2 45%, sat 98%. has PRN and scheduled duonebs, scheduled decadron, * anxiety - multifactorial, in part likely r/t dyspnea. appears comfortable. On propofol, atarax, and now with PRN ativan 1mg q6h * pain -the patient remains on fentanyl and propofol, and does not appear obviously painful at this time but she does grimace during suctioning. continue fentanyl gtt - d/w RN - compassionate withdrawal today around 1500, will [address] orders for comfort meds - consider consulting hospice 02/01 - Palliative care will continue to follow the patient during this hospitalization. Attestation Attestation: To help prompt me to consider important information that might be impacting today's encounter and assessment, information from prior notes written by myself or my colleagues may have been "brought forward" into today's note. My signature on this note, however, is an attestation that I personally performed the exam, history, and/or decision-making noted today, and, unless otherwise indicated, the interactions with patient, family, and staff as well as the review of records all occurred today. I also attest that the listed assessment and stated plan reflect my best clinical judgment today based on the combination of historical information, prior notes, and today's exam/ interactions. When time spent is documented, it refers only to time spent today by the signer, or if indicated, combined time spent today by collaborating physician/nurse practitioner.
[2018-01-31] MEDS: Pantoprazole Inj 40 MG Vial IV.PUSH SCH (14:04)
[2018-01-31] MEDS ORDERED: Hyoscyamine Inj 0.5 MG/ML Ampul IV.PUSH ONE (14:45)
[2018-01-31] MEDS ORDERED: fentaNYL Citrate Inj 100 MCG/2 ML Ampul IV.PUSH ONE ×2 (14:45→15:00)
--- NOTE | 2018-01-31 14:46 | P.PNCC ---
Subjective Brief History: 88-year-old female fell at home from standing position when she tripped. Transferred to the emergency room awake and complaining of the pain on the left side of her chest. Patient transferred this priority 2 trauma alert and on arrival noted to have very extensive subcutaneous emphysema extending from the lower chest all the way to the neck and the face. Patient was resuscitated according trauma principles primary secondary survey resuscitation definitive care carried out and patient underwent full diagnostic and clinical workup Final diagnoses include Large left-sided pneumothorax. Extensive subcutaneous emphysema extending throughout the chest and upper abdomen bilaterally. Pneumomediastinum. Multiple acute fractures involving the left rib cage with significant displacement of the left 7, 8, 9 ribs and Nondisplaced fractures involving the left 5, 6, 10, and 11th ribs. Patient is now intubated and ventilated will remain on the ventilator for the duration. In the face of serial rib fractures and underlying pulmonary contusion patient will require prolonged intubation and ventilation and will eventually either come off the ventilator or may require tracheostomy Patient has underlying severe pulmonary emphysema has been a lifetime smoker I discussed this at length with the family and patient is DO NOT RESUSCITATE 24 Hour Review/Hospital Course: 01/23/2018 Patient has been stable throughout the night Neurologically she is improved she is opening eyes and following simple commands apparently responding to her family but remains sedated in the face of ventilatory support Hemodynamically stable Bilateral breath sounds on assist control ventilation and good PO2 FiO2 gradient on 40% FiO2. Patient has serial rib fractures on the left side with pulmonary laceration and contusion and therefore is not ready of course to be extubated Chest tube no more leak The subcutaneous emphysema is gradually resolving and reabsorbing as expected Abdomen soft active bowel sounds Renal function is adequate however patient's urine output has been marginal in last 24 hours and she is gotten several boluses of fluids Random urine sodium is very high and indicative of renal wasting rather than prerenal insufficiency and volume contraction Fractional sodium excretion is more than 1 We will give some Lasix to help patient along now that she is volume loaded 01/24/2018 Patient spent an uneventful night This morning arterial blood gas reveals combined respiratory and metabolic acidosis unknown cause and origin Patient was given 2 amps of bicarb in additionally volume loaded although she is euvolemic at this time Respiratory parameters have been changed on the ventilator in order to allow to blow off hypercapnia It is quite unclear why patient developed this acid-base disbalance Remains a small dose fentanyl and propofol for mild sedation and pain control Hemodynamically patient is stable Cardiac echo reveals ejection fraction about 60% and no other abnormalities Bilateral breath sounds no more pneumothorax and the subcutaneous emphysema is slowly resolving Chest tube minimal drainage and no air leak Abdomen is soft hypoactive bowel sounds no rebound no guarding no masses CT of the abdomen does not show any abnormalities and lactic acid is 1.4 Renal function has been precarious and last 24 hours. Despite adequate volume loading patient's urine output remained low and at this point is finally catching up and increasing. Slight increase in BUN and creatinine will have nephrology look at the patient In summary well and not sure well patient developed metabolic acidosis this appears to be a anion gap acidosis and the offending agent is certainly not present The only thing obvious is the volume constriction and hypovolemia in the past but this is been corrected therefore will see how patient does At this point there are no obvious sources of sepsis or any clinical causes for hemodynamic instability 01/25/2018 Patient neurologically stable on sedation vacation opens eyes and follows commands intermittently Remains on decreasing doses of propofol Available next few days as far as pulmonary function is concerned but I want to make sure the patient is metabolically stabilized Hemodynamically stable Bilateral breath sounds good PO2 FiO2 gradient on 40% FiO2 with good pulmonary excursion and mechanics Metabolic alkalosis has resolved and was probably due to some volume constriction Abdomen soft will start on enteral diet Renal function improving and nephrology consult greatly appreciated DC bicarbonate drip and start patient on D5 half-normal saline in face of mild hypernatremia Continue care 01/26/2018 Patient is definitely improving Decrease sedation allows for patient to communicate She is very anxious on the respirator and fentanyl has been decreased to be substituted with p.o. Roxicet via NG tube Bilateral good breath sounds good PO2 FiO2 gradient and good pulmonary excursion Patient tolerating CPAP well and she will stay on CPAP during the day to be switched to rate at night She is not quite ready to extubate yet but will extubate most likely tomorrow 01/27/2018 Patient gradually improving and doing very well today Sedation removed Remains hemodynamically stable Bilateral good breath sounds tolerated CPAP very well and pulmonary mechanics have greatly improved Extubate patient today Out of bed Will do bedside swallow and perhaps start patient on diet Aggressive PT OT and patient to be out of bed We will remove chest tube tomorrow 01/27/2018 Patient last about a hour and a half of the extubation but started having difficulty breathing and became stridorous Received duo nebs followed by racemic epinephrine however despite all with patient is unable to maintain her airway and therefore she is reintubated Considering the patient is DNR this is been discussed with her daughter and explained that this is a bridging technique to patient improves At the time of intubation is noted patient's very swollen vocal cords which might have contributed to the problem to start with We will give patient small dose of steroids and perhaps be able to decrease the swelling of the vocal cords and allow for easier extubation next time around 01/28 Failed extubation yesterday Patient is awake-although not agitated certainly discomfort secondary to the ET tube Chest x-ray is unchanged Patient had stridor after the extubation-given this fact we will start him start her on low-dose steroids for 2 days Patient is DNR we will discussed with the family options of extubation-after some more optimization of the patient Resume tube feeds 01/29 Patient is awake mildly sedated she is on CPAP pressure support He has been started on steroids to reduce her chance of stridor case of extubation Shallow breathing index is in acceptable however she is certainly not ready to be extubated We will obtain a palliative consult for the goals of care 01/30 Is awake her eyes are open-comfortable with fentanyl drip and propofol drip as I had a long discussion with family yesterday and they opted for terminal extubation on Saturday Until then we will keep patient comfortable intubated and will not accelerate care Case of accidental or self extubation patient will not be intubated according to family wishes 01/31/18 Daughter at bedside reports she is waiting for family to arrive for compassionate extubation Patient sedated with Propofol and Fentanyl, appears comfortable Palliative care assistance appreciated Family considering Hospice Objective Vital Signs / I&O: Vital Signs 01/30/18 16:00 01/30/18 16:17 01/30/18 20:00 Temperature 97.6 F 98.3 F Pulse Rate 68 64 Respiratory Rate 12 14 12 Blood Pressure 105/52 L 105/51 L Pulse Oximetry 96 95 99 01/30/18 20:40 01/31/18 00:00 01/31/18 00:18 Temperature 97.9 F Pulse Rate 65 66 Respiratory Rate 12 12 13 Blood Pressure 133/58 L Pulse Oximetry 98 100 99 01/31/18 03:34 01/31/18 04:00 01/31/18 08:00 Temperature 98.1 F 100 F H Pulse Rate 70 79 78 Respiratory Rate 17 12 15 Blood Pressure 111/55 L 105/59 L Pulse Oximetry 99 99 97 Intake & Output 01/30/18 01/31/18 01/31/18 18:59 06:59 18:59 Intake Total 2647 / 2647 1457 / 1457 895 / 895 Output Total 550 / 550 1155 / 1155 Balance 2097 / 2097 302 / 302 895 / 895 Weight 67.3 kg Intake: IV 1639 / 1639 445 / 445 895 / 895 Diprivan 1000 mg/100 ml Inj 1, 190 / 190 110 / 110 95 / 95 000 mg In 100 ml @ 5 MCG/KG/MIN 2.115 mls/hr IV.CONT TITRATE PRN Rx#:[id number] NS Inj 1,000 ML @ 50 mls/hr IV. 915 / 915 335 / 335 800 / 800 SIG .Q20H BENNETT Rx#:[id number] fentaNYL 10 mcg/mL Premix Drip 534 / 534 2,500 mcg In 250 ml @ 50 MCG/HR 5 mls/hr IV.SIG TITRATE PRN Rx #:[id number] Oral 0 / 0 Tube Feeding 548 / 548 352 / 352 Tube Irrigant 60 / 60 60 / 60 Water Bolus Amount 400 / 400 400 / 400 Other 200 / 200 Output: Stool 0 / 0 Urine Amount (Catheter) 550 / 550 550 / 550 Indwelling Urethral Catheter 550 / 550 550 / 550 Gastric Drainage 580 / 580 Oral Orogastric Tube 580 / 580 Chest Tube Drainage 25 / 25 #1 Left Pleural/Mediastinal 25 / 25 Left 0 / 0 Other: Date of Last Bowel Movement 01/29/18 01/31/18 01/29/18 # Bowel Movements 1 # Incontinent Bowel Movements 1 Result Diagrams: 01/30/18 06:08 01/30/18 06:08 Disinhibition Score: 14.00 Aggression Score: 14.00 Lability Score: 14.00 Agitated Behavior Total Score: 14 Objective Remarks: GENERAL: 87-year-old critically ill female mechanically ventilated and sedated. SKIN: Warm and dry. HEAD: Normocephalic. EYES: Pupils equal and round. No scleral icterus. ENT: No nasal bleeding or discharge. Mucous membranes pink and moist. ETT secured to ventilator. NECK: Trachea midline. No JVD. CARDIOVASCULAR: Regular rate and rhythm. RESPIRATORY: No accessory muscle use. Lungs clear and diminished to auscultation. Breath sounds equal bilaterally. Left lateral chest tube secured to Pleur-evac system on waterseal. No air leak noted. GASTROINTESTINAL: Abdomen soft, non-tender, nondistended. + BS. MUSCULOSKELETAL: Extremities without cyanosis, +1 generalized edema. + perfused NEUROLOGICAL: Sedated, follows commands x4. Assessment and Plan Plan: INJURIES: LEFT ribs fxs (5, 6, 7, 8, 9, 10, 11) Large LEFT PTX w/ extensive SQ edema Pneumomediastinum LEFT pulmonary contusion PMHx: Tobacco use. COPD. Depression. 01/22: Intubated 01/22: LEFT CT placement 01/27: Extubated, then re-intubated d/t stridor LEFT ribs fxs, LEFT PTX, Pneumomediastinum, LEFT pulmonary contusion, Respiratory failure, COPD Supportive care Vent bundle Duonebs Continue chest tube on waterseal Propofol and fentanyl drips Palliative care consulted to evaluate goals of care Patient is a DNR per family wishes Family requested comfort measures only and withdrawal of life-sustaining measures Proceed with terminal extubation per family wishes Plan of care discussed with patient's daughter and [facility]OL at bedside. Collaborating Trauma surgeon agrees with plan. Case management consulted to assist with discharge planning.
[2018-01-31] MEDS ORDERED: Hyoscyamine Inj 0.5 MG/ML Ampul IV.PUSH PRN (15:00)
[2018-01-31] MEDS ORDERED: Morphine Inj 4 MG, Morphine Inj 2 MG IV.PUSH ONE ×2 (16:01)
[2018-01-31] MEDS ORDERED: Morphine Inj 4 MG/ML Vial IV.PUSH PRN ×2 (16:01)
[2018-01-31] MEDS ORDERED: Morphine Inj 4 MG/ML Vial IV.PUSH ONE (16:15)
[2018-01-31 17:10] VITALS: BP 115/56; PULSE 0; RESP 0; TEMP 97; O2SAT 0
--- NOTE | 2018-02-05 14:26 | P.DN ---
Discharge Sum: Prov - Provider Primary care physician: UNKNOWN Consults: 01/22/18 18:44 Consult to Urology Routine Consulting Provider: Slava Barahona Reason for Consultation: PLEASE PLACE BEKA RODRIGUEZ Notified:: Service Spoke with:: stephanie Date Notified:: 01/22/18 Time Notified:: 18:48 Ordering Provider: TREVON 01/24/18 09:34 Consult to Nephrology Routine Consulting Provider: Yandel Montalvo Does the patient have a Rater Associate who follows them?: No Preferred Nephrology International Marketing Executive:: Be[facility] Specialist Physician Reason for Consultation: ARF Notified:: Service Spoke with:: Guero Date Notified:: 01/24/18 Time Notified:: 09:50 Ordering Provider: SONIA 01/28/18 08:56 HUB Only Consult Order Routine Consulting Provider: [facility] Hinton Reason for Consultation: ltac referral 01/29/18 06:38 Consult to Rehab Medicine Routine Consulting Provider: Elvia Castaneda Reason for Consultation: Polytrauma Notified:: Service Spoke with:: Mireya Date Notified:: 01/29/18 Time Notified:: 06:41 Ordering Provider: SONIA 01/29/18 09:40 Consult to Palliative Care Routine Consulting Provider: Angel Stanley Reason for Consultation: Goals of care Notified:: Service Spoke with:: MIREYA Date Notified:: 01/29/18 Time Notified:: 09:43 Ordering Provider: SONIA Discharge Sum: Diag - Admitting Diagnosis (1) Pneumothorax on left Status: Acute (2) Multiple rib fractures Status: Acute (3) Acute kidney injury Status: Acute (4) Metabolic acidosis Status: Acute (5) Respiratory failure Status: Acute Discharge Sum: Summary - Date and Time Date of admission: 01/22/18 13:45 Date of : 01/31/18 Time of : 16:26 - Summary Result Diagrams: 01/30/18 06:08 01/30/18 06:08 Hospital Course: Hospital Course: 01/23/2018 Patient has been stable throughout the night Neurologically she is improved she is opening eyes and following simple commands apparently responding to her family but remains sedated in the face of ventilatory support Hemodynamically stable Bilateral breath sounds on assist control ventilation and good PO2 FiO2 gradient on 40% FiO2. Patient has serial rib fractures on the left side with pulmonary laceration and contusion and therefore is not ready of course to be extubated Chest tube no more leak The subcutaneous emphysema is gradually resolving and reabsorbing as expected Abdomen soft active bowel sounds Renal function is adequate however patient's urine output has been marginal in last 24 hours and she is gotten several boluses of fluids Random urine sodium is very high and indicative of renal wasting rather than prerenal insufficiency and volume contraction Fractional sodium excretion is more than 1 We will give some Lasix to help patient along now that she is volume loaded 01/24/2018 Patient spent an uneventful night This morning arterial blood gas reveals combined respiratory and metabolic acidosis unknown cause and origin Patient was given 2 amps of bicarb in additionally volume loaded although she is euvolemic at this time Respiratory parameters have been changed on the ventilator in order to allow to blow off hypercapnia It is quite unclear why patient developed this acid-base disbalance Remains a small dose fentanyl and propofol for mild sedation and pain control Hemodynamically patient is stable Cardiac echo reveals ejection fraction about 60% and no other abnormalities Bilateral breath sounds no more pneumothorax and the subcutaneous emphysema is slowly resolving Chest tube minimal drainage and no air leak Abdomen is soft hypoactive bowel sounds no rebound no guarding no masses CT of the abdomen does not show any abnormalities and lactic acid is 1.4 Renal function has been precarious and last 24 hours. Despite adequate volume loading patient's urine output remained low and at this point is finally catching up and increasing. Slight increase in BUN and creatinine will have nephrology look at the patient In summary well and not sure well patient developed metabolic acidosis this appears to be a anion gap acidosis and the offending agent is certainly not present The only thing obvious is the volume constriction and hypovolemia in the past but this is been corrected therefore will see how patient does At this point there are no obvious sources of sepsis or any clinical causes for hemodynamic instability 01/25/2018 Patient neurologically stable on sedation vacation opens eyes and follows commands intermittently Remains on decreasing doses of propofol Available next few days as far as pulmonary function is concerned but I want to make sure the patient is metabolically stabilized Hemodynamically stable Bilateral breath sounds good PO2 FiO2 gradient on 40% FiO2 with good pulmonary excursion and mechanics Metabolic alkalosis has resolved and was probably due to some volume constriction Abdomen soft will start on enteral diet Renal function improving and nephrology consult greatly appreciated DC bicarbonate drip and start patient on D5 half-normal saline in face of mild hypernatremia Continue care 01/26/2018 Patient is definitely improving Decrease sedation allows for patient to communicate She is very anxious on the respirator and fentanyl has been decreased to be substituted with p.o. Roxicet via NG tube Bilateral good breath sounds good PO2 FiO2 gradient and good pulmonary excursion Patient tolerating CPAP well and she will stay on CPAP during the day to be switched to rate at night She is not quite ready to extubate yet but will extubate most likely tomorrow 01/27/2018 Patient gradually improving and doing very well today Sedation removed Remains hemodynamically stable Bilateral good breath sounds tolerated CPAP very well and pulmonary mechanics have greatly improved Extubate patient today Out of bed Will do bedside swallow and perhaps start patient on diet Aggressive PT OT and patient to be out of bed We will remove chest tube tomorrow 01/27/2018 Patient last about a hour and a half of the extubation but started having difficulty breathing and became stridorous Received duo nebs followed by racemic epinephrine however despite all with patient is unable to maintain her airway and therefore she is reintubated Considering the patient is DNR this is been discussed with her daughter and explained that this is a bridging technique to patient improves At the time of intubation is noted patient's very swollen vocal cords which might have contributed to the problem to start with We will give patient small dose of steroids and perhaps be able to decrease the swelling of the vocal cords and allow for easier extubation next time around 01/28 Failed extubation yesterday Patient is awake-although not agitated certainly discomfort secondary to the ET tube Chest x-ray is unchanged Patient had stridor after the extubation-given this fact we will start him start her on low-dose steroids for 2 days Patient is DNR we will discussed with the family options of extubation-after some more optimization of the patient Resume tube feeds 01/29 Patient is awake mildly sedated she is on CPAP pressure support He has been started on steroids to reduce her chance of stridor case of extubation Shallow breathing index is in acceptable however she is certainly not ready to be extubated We will obtain a palliative consult for the goals of care 01/30 Is awake her eyes are open-comfortable with fentanyl drip and propofol drip as I had a long discussion with family yesterday and they opted for terminal extubation on Saturday Until then we will keep patient comfortable intubated and will not accelerate care Case of accidental or self extubation patient will not be intubated according to family wishes 01/31/18 Daughter at bedside reports she is waiting for family to arrive for compassionate extubation Patient sedated with Propofol and Fentanyl, appears comfortable Palliative care assistance appreciated Patient was provided with comfort measures and was extubated per family's wishes. Patient passed peacefully and was pronounced by the RN at 1626 with family present.
--- NOTE | 2018-02-21 14:36 | MH ---
cc: Chris Hanna MD DATE OF ADMISSION: 01/22/2018 DATE OF EVALUATION: 01/22/2018 HISTORY OF PRESENT ILLNESS: This is an 88-year-old female who, by reports, fell at home. She was brought in as a trauma alert. By report, the patient was communicative at the scene. She started having swelling in her neck and chest and arm and was intubated by EMS for airway protection. On arrival, the patient was on backboard and C-collar, intubated immobilized; as a result of review of system and history are unobtainable. PHYSICAL EXAMINATION: HEENT: On exam the patient has pupils that are equal and reactive. She has a trachea that is midline. NECK: Trachea is midline. The ET tube after coming through her oral cavity. Neck with crepitus. CHEST: Subcutaneous emphysema. RESPIRATORY: Clear. She has positive crepitus. CARDIOVASCULAR: Regular. GASTROINTESTINAL: Soft, nontender, nondistended. MUSCULOSKELETAL: No deformities. NEUROLOGIC: Sedated, intubated. On arrival, the patient was evaluated by emergency room physicians. She had a ET-tube tube in place for subcutaneous emphysema. A left chest tube was placed. She was taken to CAT scan workup which revealed multiple rib fractures and a left-sided pneumothorax. On my evaluation, the patient was intubated, sedated; as a result all reviews of system and history is unobtainable. Pupils, on exam were equal and reactive. RADIOLOGICAL IMAGES: 1. CT of the head: No intracranial hemorrhage. 2. CT of the chest: Multiple left-sided rib fractures, left-sided pneumothorax. 3. CT of the abdomen and pelvis: No visceral injury. 4. CT of the cervical spin: C7-T1 narrowing; no disk bulge. ASSESSMENT: This patient is status post fall with multiple rib fractures, left-sided pneumothorax intubated at the scene. The patient has been admitted to [facility] nurse who will monitor respiratory status, provide supportive care, monitor hemodynamics, monitor neurological status, provide pain management. MD LISA Sanchez/tiffany , 02:16 PM , 02:26 PM
== END 2018-01-31 18:30 | disposition expired ==
LOC: NEPI 12:12 → N03 13:40 → NEDA 13:45 → N03 13:47 → EDBD 13:48 → N03 13:48
PROVIDERS: ADMIT Surgery; ATTEND Surgery